=== PATIENT | female | born 1965 | race African-American/Black ===

== ENCOUNTER 2017-02-25 05:46 | Inpatient (IN) ==
[2017-02-25] MEDS ORDERED: MIDAZOLAM 2 MG/2 ML VIAL IV ONE (07:09)
[2017-02-25] MEDS ORDERED: fentaNYL 100 MCG/2 ML VIAL IV ONE (07:09)
[2017-02-25] MEDS ORDERED: DIAZEPAM 5 MG TABLET PO ONE (07:09)
[2017-02-25 07:28] LABS: Basophils % 0.9 % (0.0-0.8); Eosinophils # 0.3 10*3/uL (0.0-0.87); Hematocrit 28.4 VOL% (35.7-47.0); Hemoglobin 9.5 GM/DL (12.0-16.0); Immature Granulocytes % 1.4 %; Immature Granulocytes Absolute 0.06 #; Lymphocytes # 0.7 10*3/uL (1.4-4.0); Lymphocytes % 15.6 % (21.3-54.2); Mean Corpuscular HGB Conc 33.5 GM/DL (32-36); Mean Corpuscular Hemoglobin 29 PG (27-34); Mean Corpuscular Volume 86.9 FL (87-102); Monocytes # 0.3 10*3/uL (0.11-0.8); Monocytes % 7.9 % (1.7-12.7); Neutrophils # 2.9 10*3/uL (1.4-7.4); Neutrophils % 68.2 % (38.7-73.9); Platelet Count 206 T/CUMM (130-400); Red Blood Count 3.27 MC/CUMM (3.8-5.5); Red Cell Distribution Width 15.8 % (9.3-17.3); White Blood Count 4.3 T/CUMM (4-12)
[2017-02-25] MEDS ORDERED: SODIUM CHLORIDE 0.9% 250 ML IV SCH (07:30)
[2017-02-25 07:55] LABS: Calcium 6.2 MG/DL (8.5-10.1); Osmolality,Calculated 290.5 MOS/KG (273-304); PT Patient Result 10.1 SECS; Partial Thromboplastin Time 28.9 SECS (0-40); Potassium 3.5 MMOL/L (3.5-5.1)
[2017-02-25] MEDS ORDERED: DIAZEPAM 5 MG TABLET ONE (08:36)
--- NOTE | 2017-02-25 08:49 | History and Physical Update ---
Sedation H&P Update - History and Physical H&P was reviewed, the patient examined and there: are no changes in the patients condition since last H&P was completed. - Dictation Physical: refer to scanned H&P - Physical Exam Mental Status: alert and oriented Heart: regular rate and rhythm Lung: clear to auscultation Abdomen: within normal limits Vitals: within normal limits - Sedation Plan for Sedation: moderate Patient Consent: Procedure disscussed with patient and patinet has consented., Risks and benefits were discussed with patient,including infection,, bleeding, injury to surrounding structures, seizure, temporary nerve, Patient understands and accepts potential risks/benefits and agrees to, proceed. ASA Class: II Airway Assessment: Class II: Soft palate, uvula, fauces visible
[2017-02-25] MEDS ORDERED: fentaNYL 100 MCG/2 ML VIAL ONE ×2 (09:27→15:24)
[2017-02-25] MEDS ORDERED: MIDAZOLAM 2 MG/2 ML VIAL ONE ×2 (09:28→15:24)
[2017-02-25] MEDS ORDERED: HEPARIN/NACL 0.9% 2 UNITS/ML 2,000 ML IV ONE (09:28)
[2017-02-25] MEDS: SODIUM CHLORIDE 0.45% 1,000 ML IV SCH (11:30)
[2017-02-25] MEDS ORDERED: HEPARIN 10,000 UNIT/10 ML VIAL ONE (12:05)
[2017-02-25] MEDS ORDERED: PHENYLEPHRINE 1 MG/10 ML SYRINGE IV ONE (12:05)
[2017-02-25] MEDS ORDERED: PROPOFOL 200 MG/20 ML VIAL IV ONE (12:05)
[2017-02-25] MEDS ORDERED: ONDANSETRON 4 MG/2 ML VIAL ONE (12:05)
[2017-02-25] MEDS ORDERED: LIDOCAINE 100 MG/5 ML SYRINGE ONE (12:05)
[2017-02-25] MEDS ORDERED: KETOROLAC 30 MG/1 ML VIAL IV ONE (12:13)
--- NOTE | 2017-02-25 12:13 | General Surg History&Physical ---
Assessment and Plan (1) Brachial artery thrombus Status: Acute Assessment and plan: I have discussed the findings of the arteriogram and reviewed the images with Dr. Walton. He is agreed to see the patient in consultation for management of this problem. Current Visit: Yes History of Present Illness Chief complaint: Right hand claudication History of present illness: Ms. Aragon is a 51 year old female who is brought in after arteriogram for right hand claudication symptoms in the arteriogram showed a filling defect in the brachial artery below the antecubital fossa. She has symptoms of hand claudication and is admitted for definitive treatment of this area of filling defect in her brachial artery. She did have a fistula on the side which was a brachiocephalic fistula that was ligated for still symptoms about two years ago. Home Medications Medication Instructions Recorded Confirmed Type Carvedilol [Coreg] 25 mg PO DIRECTED 03/13/15 02/25/17 History Sucroferric Oxyhydroxide [Velphoro 500 mg PO DAILY W/SUPPER 06/25/16 02/25/17 History Chew Tab] Calcium (Carbonate) [Oscal 500] 3,000 mg PO BEDTIME #30 tablet 06/27/16 Rx Levothyroxine Tab [Synthroid Tab] 200 mcg PO DAILY@0700 09/16/16 02/25/17 History Calcium (Carbonate) [Oscal 500] 2,000 mg PO BID W/MEALS 02/24/17 02/25/17 History Gabapentin 100 mg PO BEDTIME PRN 02/25/17 02/25/17 History Allergies Allergy/AdvReac Type Severity Reaction Status Date / Time No Known Allergies Allergy Verified 09/19/15 21:23 Medical,Surgical,& Family Hx - Medical History Cardio: History of: Hypertension (MEDICATION) No history of: Cardiac Dysrhythmia, CHF, SC, Pacemaker, Valvular Heart Disease Neurology: History of: Peripheral Neuropathy No history of: Brain Aneurysm, Cerebrovascular Accident, Dementia, Migraine, Seizures, Vertigo HEENT: History of: Eye Problem (GLASSES) Endocrine: History of: Thyroid Disorder (ALSO PARATHYROID) Respiratory: History of: Respiratory Problems (HAD PE 2014) Renal: History of: Dialysis (CATHETER FOR PERITONEAL DAILYSIS, CYCLER AT NIGHT) , Renal Failure Gastrointestinal: History of: Diverticulitis/ Diverticulosis Musculoskeletal: History of: Musculoskeletal Problems (OA) Hematology: History of: Anemia No history of: Blood Transfusion Reaction Reproductive: History of: Complication Other: History of: Miscellaneous Medical Problems (BILATERAL PE AROUND 2 YRS AGO ) No history of: Anesthesia Reactions - Surgical History Cardiac Surgeries: Patient Denies: Cardiac Catheterization Thoracic Surgeries: Patient denies;: Organ Transplant Neurologic Surgeries: Patient denies: Brain Aneurysm HEENT Surgeries: Comment Only: Thyroid Surgery (PARATHYROID SURGERY) Abdominal Surgeries: Surgical HX of: Abdominal Surgery, Colonoscopy, EGD (15 YRS AGO) Reproductive Surgeries: Surgical HX of;: Section (X2), Gynecologic Surgery, Hysterectomy Orthopedic Surgeries: Surgical HX of;: Implanted Devices (LEFT SIDE OF ABDOMEN PERITONEAL CATHETER), Total Hip Replacement (LEFT HIP) - Family History Family History: Reports;: Family Diabetes (MOTHER BROTHER), Family Hypertension (MOTHER FATHER BROTHER), Family Stroke (MOTHER) - Social History Smoking Status: Never smoker Frequency of Alcohol Use: None Type of Drug Use: None Exam - Constitutional Vitals: Period Temp Pulse Resp BP Sys/Salomon Pulse Ox Last 24 Hr 98.9 F 60-65 15-20 122-147/84-102 94-100 General appearance: no acute distress, morbidly obese - Head Head exam: Present: normal inspection, normocephalic - Eye Eye exam: Present: EOMI Pupils: Present: MINNIE - ENT ENT exam: Present: normal exam Mouth exam: Present: normal external inspection, normal voice - Neck Neck exam: Present: normal inspection, trachea midline - Respiratory Respiratory exam: Present: clear to auscultation bilaterally. Absent: accessory muscle use, chest wall tenderness - Cardiovascular Cardiovascular exam: Present: RRR. Absent: systolic murmur, tachycardia - GI/Abdominal GI/Abdominal exam: Present: soft. Absent: distended, tenderness - Extremities Exam Extremities exam: Present: other (There is a palpable pulse in the right ulnar artery but not in the right radial artery.) - Back Exam Back exam: Present: normal inspection - Neurological Exam Neurological exam: Present: alert, oriented X3 Speech: Present: normal - Skin Skin exam: Present: normal color, warm - Constitutional Constitutional: Present: as per HPI - EENT Nose, mouth and throat: Present: as per HPI - Cardiovascular Cardiovascular: Present: as per HPI - Respiratory Respiratory: Present: as per HPI - Gastrointestinal Gastrointestinal: Present: as per HPI - Genitourinary Genitourinary: Present: as per HPI - Musculoskeletal Musculoskeletal: Present: as per HPI - Neurological Neurological: Present: as per HPI - Endocrine Endocrine: Present: as per HPI Hematologic/Lymphatic: Present: as per HPI Results - Labs CBC & BMP: 02/25/17 07:16 02/25/17 07:16
--- NOTE | 2017-02-25 12:19 | Vascular Surgery Consult Note ---
History of Present Illness Chief complaint: right hand ischemia History of present illness: Ms. Aragon is a 51 year old female Ms. aragon is a 51-year-old woman with a past history of a right upper arm brachial artery to vein fistula for dialysis access. She has developed hand ischemia in the graft has been ligated but continues with ischemic pain in the right hand. This is not critical ischemia and today an arteriogram has been done which indicates either thrombus or plaque in the brachial artery above its bifurcation probably right at the area of the previous anastomosis. I have reviewed this arteriogram and patient's symptoms with Dr. Irving and we have discussed options and we feel that an exploration with thrombectomy or endarterectomy patching may improve her symptoms significantly. I have subsequently discussed this with Ms. aragon and her family members explaining our findings on the arteriogram and the surgical option that we have offer in the recommending. I have explained that I cannot guarantee resolution of the symptoms but there certainly appears to be good chance that we can improve on the perfusion of the hand and probably the symptoms. He understands risks of infection bleeding and restenosis and agrees and would like to go ahead with the procedure this afternoon. Dr. Irving by both have clinic this afternoon line should be shorter and he has asked that I go ahead with this procedure and I can do so in a timely fashion which I can. Home Medications Medication Instructions Recorded Confirmed Type Carvedilol [Coreg] 25 mg PO DIRECTED 03/13/15 02/25/17 History Sucroferric Oxyhydroxide [Velphoro 500 mg PO DAILY W/SUPPER 06/25/16 02/25/17 History Chew Tab] Calcium (Carbonate) [Oscal 500] 3,000 mg PO BEDTIME #30 tablet 06/27/16 Rx Levothyroxine Tab [Synthroid Tab] 200 mcg PO DAILY@0700 09/16/16 02/25/17 History Calcium (Carbonate) [Oscal 500] 2,000 mg PO BID W/MEALS 02/24/17 02/25/17 History Gabapentin 100 mg PO BEDTIME PRN 02/25/17 02/25/17 History Allergies Allergy/AdvReac Type Severity Reaction Status Date / Time No Known Allergies Allergy Verified 09/19/15 21:23 Medical,Surgical,& Family Hx - Medical History Cardio: History of: Hypertension (MEDICATION) No history of: Cardiac Dysrhythmia, CHF, SD, Pacemaker, Valvular Heart Disease Neurology: History of: Peripheral Neuropathy No history of: Brain Aneurysm, Cerebrovascular Accident, Dementia, Migraine, Seizures, Vertigo HEENT: History of: Eye Problem (GLASSES) Endocrine: History of: Thyroid Disorder (ALSO PARATHYROID) Respiratory: History of: Respiratory Problems (HAD PE 2015) Renal: History of: Dialysis (CATHETER FOR PERITONEAL DAILYSIS, CYCLER AT NIGHT) , Renal Failure Gastrointestinal: History of: Diverticulitis/ Diverticulosis Musculoskeletal: History of: Musculoskeletal Problems (OA) Hematology: History of: Anemia No history of: Blood Transfusion Reaction Reproductive: History of: Complication Other: History of: Miscellaneous Medical Problems (BILATERAL PE AROUND 2 YRS AGO ) No history of: Anesthesia Reactions - Surgical History Cardiac Surgeries: Patient Denies: Cardiac Catheterization Thoracic Surgeries: Patient denies;: Organ Transplant Neurologic Surgeries: Patient denies: Brain Aneurysm HEENT Surgeries: Comment Only: Thyroid Surgery (PARATHYROID SURGERY) Abdominal Surgeries: Surgical HX of: Abdominal Surgery, Colonoscopy, EGD (15 YRS AGO) Reproductive Surgeries: Surgical HX of;: Section (X2), Gynecologic Surgery, Hysterectomy Orthopedic Surgeries: Surgical HX of;: Implanted Devices (LEFT SIDE OF ABDOMEN PERITONEAL CATHETER), Total Hip Replacement (LEFT HIP) - Family History Family History: Reports;: Family Diabetes (MOTHER BROTHER), Family Hypertension (MOTHER FATHER BROTHER), Family Stroke (MOTHER) - Social History Smoking Status: Never smoker Frequency of Alcohol Use: None Type of Drug Use: None Exam - Constitutional Vitals: Period Temp Pulse Resp BP Sys/Salomon Pulse Ox Last 24 Hr 98.9 F 60-65 15-20 122-147/84-102 94-100 Results - Labs CBC & BMP: 02/25/17 07:16 02/25/17 07:16
[2017-02-25] MEDS ORDERED: VANCOMYCIN 500 MG VIAL ONE (12:40)
[2017-02-25] MEDS ORDERED: HEPARIN 5,000 UNIT/1 ML VIAL ONE (12:40)
--- NOTE | 2017-02-25 12:44 | EKG Report ---
Stationary ECG Study [facility] Test Date: 02/25/2017 12:45:38 PM Pat Name: NANCY ROSENTHAL Department: Room: 335 Gender: F Land Surveyor: BEBE : 1965 Requested by: Desmond Johnson Order Number: [id number] Reading MD: LOREN ARTHUR Intervals [place] Rate: 61 P: 64 CO: 217 QRS: 23 QRSD: 83 T: 4 QT: 378 QTc: 382 Interpretive Statements SINUS RHYTHM WITH PROLONGED CO INTERVAL LOW QRS VOLTAGE IN PRECORDIAL LEADS NONSPECIFIC T-WAVE ABNORMALITY Electronically Signed On 02-25-17 14:43:29 CDT by LOREN ARTHUR [email or web address]
[2017-02-25] MEDS: HYDROmorphone 2 MG/1 ML VIAL IV PRN ×2 (12:53→17:06)
--- NOTE | 2017-02-25 13:07 | Post Interventional Procedure ---
Pre-op diagnosis: Right arm pain and weakness. Decreased radial artery pulse on the right. Post-op diagnosis: same Procedure: Right upper extremity arteriogram, aortic arch arteriogram. Ultrasound guidance for vascular access Radiologist: Kika Lang Anesthesia: conscious sedation Medications: see below Total Sedation Time: 30 min Specimens: none sent Estimated blood loss: minimal (less than 3 ml) Complications: none Condition: stable Description/Findings: Informed consent was obtained. A formal timeout was performed. The right groin was prepped and draped in a sterile fashion. 5 cc 1% lidocaine was injected. The right common femoral artery was accessed with micropuncture needle. Using Seldinger technique, a flush catheter was situated in the ascending thoracic aorta. Aortic arch arteriography was performed in the WOLFF position. H1 catheter was then used to selectively catheterize the right brachial artery. Serial filming over the arterial runoff of the right upper extremity was performed from the level of the innominate artery to the hand. The catheter and sheath were subsequently removed. Hemostasis was achieved with manual compression. Patient tolerated the procedure well. Medications: Monitored conscious sedation provided for 30 minutes with physician in room, with Versed 2 mg, fentanyl 50 mcg. Contrast: Visipaque 320, 65 mL. Fluoroscopy: 3.5 minutes. Images captured and archived: 216 Findings: There appears to be normal arch anatomy. There is no hemodynamically significant stenosis at the origin of the right innominate, subclavian, common carotid, or vertebral arteries. There is no hemotympanum significant stenosis or focal abnormality of the axillary artery or its major tributaries. The brachial artery is normal in appearance until it reaches the level of the elbow. There is some slight atherosclerotic irregularity of the distal most brachial artery. There is a globular area of plaque or embolus/thrombus in the distal most brachial artery which causes relatively high-grade narrowing. There is also cylindrical thrombus or embolus in the diminutive right radial artery just distal to its origin. There is slow flow throughout the radial artery which is patent to the level of the wrist. The ulnar artery provides straight line flow to the hand and is the major supplier of the palm arch. The major digital arteries are generally patent. The intraosseous arteries are generally patent. Impression: Large lobular area of thrombus or embolus which causes fairly high-grade narrowing of the distal most right brachial artery. Second area of thrombus or embolus in the proximal aspect of the right radial artery just distal to its origin with resulting slow flow in the radial artery Assessment and Plan - Time spent with patient Time spent with patient: Greater than 30 minutes
--- NOTE | 2017-02-25 13:10 | Interventional Radiology Rpt ---
History: Right arm pain and weakness. Decreased radial artery pulse on the right. Steal syndrome Date: 02/25/2017 Study: Right upper extremity arteriogram, aortic arch arteriogram. Ultrasound guidance for vascular access Comparison exam: No previous similar Informed consent was obtained. A formal timeout was performed. The right groin was prepped and draped in a sterile fashion. 5 cc 1% lidocaine was injected. The right common femoral artery was accessed with micropuncture needle. Using Seldinger technique, a flush catheter was situated in the ascending thoracic aorta. Aortic arch arteriography was performed in the WOLFF position. H1 catheter was then used to selectively catheterize the right brachial artery. Serial filming over the arterial runoff of the right upper extremity was performed from the level of the innominate artery to the hand. The catheter and sheath were subsequently removed. Hemostasis was achieved with manual compression. Patient tolerated the procedure well. Medications: Monitored conscious sedation provided for 30 minutes with physician in room, with Versed 2 mg, fentanyl 50 mcg. Contrast: Visipaque 320, 65 mL. Fluoroscopy: 3.5 minutes. Images captured and archived: 216 Findings: There appears to be normal arch anatomy. There is no hemodynamically significant stenosis at the origin of the right innominate, subclavian, common carotid, or vertebral arteries. There is no hemotympanum significant stenosis or focal abnormality of the axillary artery or its major tributaries. The brachial artery is normal in appearance until it reaches the level of the elbow. There is some slight atherosclerotic irregularity of the distal most brachial artery. There is a globular area of plaque or embolus/thrombus in the distal most brachial artery which causes relatively high-grade narrowing. There is also cylindrical thrombus or embolus in the diminutive right radial artery just distal to its origin. There is slow flow throughout the radial artery which is patent to the level of the wrist. The ulnar artery provides straight line flow to the hand and is the major supplier of the palm arch. The major digital arteries are generally patent. The intraosseous arteries are generally patent. Impression: Large lobular area of thrombus or embolus which causes fairly high-grade narrowing of the distal most right brachial artery. Second area of thrombus or embolus in the proximal aspect of the right radial artery just distal to its origin with resulting slow flow in the radial artery PROCEDURE INTERPRETED AT [facility] DEPARTMENT OF RADIOLOGY Final Report Signed by: Dr. Kika Lang
[2017-02-25] MEDS ORDERED: ROPIVACAINE 0.5% 30 ML VIAL ONE (13:24)
[2017-02-25] MEDS ORDERED: TISSUE ADHESIVE 1 EACH APPLICATOR TOP ONE (15:51)
--- NOTE | 2017-02-25 16:06 | Operative Note ---
Date of procedure: 02/25/17 Procedure: Dr. Walton operative report Linda zapata. 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 Postoperative diagnosis: Same Procedure: Exploration of the right brachial artery with excision of old AV fistula anastomosis and patch graft angioplasty with bovine pericardium Indications: Space a 51-year-old woman is having right hand ischemic symptoms has an old AV fistula that has been previously ligated she is currently on peritoneal dialysis she continues to have hand ischemia had arteriogram today that shows an area of stenosis in the brachial artery just at the old anastomosis I have offered exploration and thrombectomy endarterectomy or patch grafting to improve flow into the hand she understands the alternatives risks and complications and agrees with the plan Description of the procedure: Patient receives interscalene block and then gets general LMA anesthesia her right arm hand or prepped with ChloraPrep and draped in standard fashion she had an old horizontal incision in the antecubital fossa and there was a palpable nodule underneath that was not pulsatile in and of itself but was firm I opened the old incision dissected around this mass which was actually the go of the previous AV fistula that was thrombosed I worked around it and then dissected proximally along the brachial artery and controlled it with a small vessel loop I then dissected distally to the mass and control the brachial artery as well on noted to significantly decreased pulse in the distal brachial artery the patient received 5000 units of intravenous heparin open the old go of the graft and encountered the old fibrous thrombus remove this and dissected down through the anastomosis this old who the graft was actually aneurysmal dissected and removed it initially did not get good backbleeding from the artery ran a #3 Genesis distally into the ulnar did not want to go into the radial artery I got backbleeding flushed with heparinized saline and ran it proximally and got back good forward bleeding but still had plaquing and stenosis in this area therefore completely trimmed away the old vein graft anastomosis and dissected proximally and distally with Marquez scissors until I had the artery open and noted what appeared to be an old thrombus going into the radial artery which are now separately controlled with Vesseloops as well as the ulnar . I was able to pass the Genesis catheter distally into the ulnar without difficulty with good backbleeding and good passive 3-1/2 coronary dilator the radial artery appears to be completely occluded at this level and in reviewing the arteriogram it appears that this is the case that the radial artery is not in fact viable at the level of the brachial. I ran a 3-1/2 coronary dilator proximally and got good inflow I chose a bovine pericardial patch and anastomosed it over the arteriotomy with a running 6-0 Prolene suture using loupe magnification which was used the entire case.. Flow was reestablished not had very good flow into the ulnar and as stated the radial artery was in fact occluded. Hemostasis was fair I did reverse heparin partially with 25 mg protamine I recheck flows with Doppler it was good the incision was irrigated I placed Surgicel over the arteriotomy closed with 2 layers one of 3-0 Monocryl in the subcu 4-0 Monocryl subcuticular glue total blood loss is estimated at 150 cc sponge needle and his counts correct and the patient taken to recovery in stable condition Surgeon / Physician: Mario Walton Results - Labs CBC & BMP: 02/25/17 07:16 02/25/17 07:16 Discharge Plan - Discharge Medications No Action Carvedilol [Coreg] 25 mg PO DAILY Sucroferric Oxyhydroxide [Velphoro Chew Tab] 500 mg PO DAILY W/SUPPER Calcium (Carbonate) [Oscal 500] 3,000 mg PO BEDTIME #30 tablet Calcium (Carbonate) [Oscal 500] 2,000 mg PO BID W/MEALS Levothyroxine Tab [Synthroid Tab] 200 mcg PO DAILY@0700 Gabapentin 100 mg PO BEDTIME PRN PRN Reason: nerves - Follow Up or Referral - Forms/Instructions
[2017-02-25] MEDS ORDERED: ONDANSETRON 4 MG/2 ML VIAL IV PRN (16:16)
[2017-02-25] MEDS ORDERED: GLUCAGON 1 MG VIAL IM PRN (16:16)
[2017-02-25] MEDS ORDERED: DEXTROSE 50% 25 GM/50 ML SYRINGE IV PRN (16:16)
[2017-02-25] MEDS ORDERED: GABAPENTIN 100 MG CAPSULE PO PRN (16:20)
--- NOTE | 2017-02-25 16:30 | Anesthesia Post-Op ---
Anesthesia Post OP - Post Ansesthetic Evaluation Patient seen in post op: Yes Resp: within normal limits CV: within normal limits Mental: within normal limits Temp: within normal limits [id number]: within normal limits Nausea and Vomiting: within normal limits Pain: within normal limits
[2017-02-25] MEDS ORDERED: VELPHORO 500 MG PO SCH (17:00)
[2017-02-25] MEDS: CALCIUM (CARBONATE) 500 MG TABLET PO SCH ×2 (19:20→20:16)
[2017-02-26] MEDS: LEVOTHYROXINE 200 MCG TABLET PO SCH (06:04)
[2017-02-26] MEDS: SODIUM CHLORIDE 0.45% 1,000 ML IV SCH (07:30)
[2017-02-26] MEDS: HYDROmorphone 2 MG/1 ML VIAL IV PRN (07:30)
[2017-02-26 07:37] LABS: Basophils % 0.4 % (0.0-0.8); Eosinophils # 0.1 10*3/uL (0.0-0.87); Eosinophils % 1.2 % (0.00-10.9); Hematocrit 34.4 VOL% (35.7-47.0); Immature Granulocytes % 0.7 %; Immature Granulocytes Absolute 0.07 #; Lymphocytes # 1.2 10*3/uL (1.4-4.0); Lymphocytes % 12.4 % (21.3-54.2); Mean Corpuscular Hemoglobin 29 PG (27-34); Mean Platelet Volume 9.6 FL (9.6-12.0); Monocytes # 0.9 10*3/uL (0.11-0.8); Monocytes % 9.5 % (1.7-12.7); Neutrophils # 7.1 10*3/uL (1.4-7.4); Neutrophils % 75.8 % (38.7-73.9); Red Cell Distribution Width 14.4 % (9.3-17.3)
[2017-02-26] MEDS: CALCIUM (CARBONATE) 500 MG TABLET PO SCH ×3 (07:39→20:29)
[2017-02-26 07:42] LABS: White Blood Count 9.4 T/CUMM (4-12)
[2017-02-26 07:43] LABS: Hemoglobin 11.7 GM/DL (12.0-16.0); Platelet Count 322 T/CUMM (130-400)
[2017-02-26] MEDS: CARVEDILOL 25 MG TABLET PO SCH (08:00)
[2017-02-26 08:08] LABS: Calcium 7.9 MG/DL (8.5-10.1); Osmolality,Calculated 264.5 MOS/KG (273-304); Potassium 3.9 MMOL/L (3.5-5.1)
[2017-02-26] MEDS ORDERED: KETOROLAC 15 MG/1 ML VIAL IV PRN (08:17)
--- NOTE | 2017-02-26 08:17 | General Surgery Progress Note ---
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 Will increase pain medication today Current Visit: Yes Subjective Patient reports: Present: no new complaints, feels better, tolerating a regular diet, afebrile Narrative: The patient is having quite a bit of pain in her right arm incision but her hand feels okay. Exam - Constitutional Vitals: Period Temp Pulse Resp BP Sys/Salomon Pulse Ox Last 24 Hr 97.2 F-98.8 F 60-82 12-20 82-162/61-102 93-100 General appearance: no acute distress, morbidly obese - Head Head exam: Present: normal inspection, normocephalic - Eye Eye exam: Present: EOMI Pupils: Present: MINNIE - ENT ENT exam: Present: normal exam Mouth exam: Present: normal external inspection, normal voice - Neck Neck exam: Present: normal inspection, trachea midline - Respiratory Respiratory exam: Present: clear to auscultation bilaterally. Absent: accessory muscle use, chest wall tenderness - Cardiovascular Cardiovascular exam: Present: RRR. Absent: systolic murmur, tachycardia - GI/Abdominal GI/Abdominal exam: Present: soft. Absent: tenderness, rebound - Extremities Exam Extremities exam: Present: other (There is good capillary refill on the right hand with a palpable ulnar pulse. The right arm incision is clean with no infection or bleeding) - Back Exam Back exam: Present: normal inspection - Neurological Exam Neurological exam: Present: alert, oriented X3 Speech: Present: normal - Skin Skin exam: Present: normal color, warm Results - Labs CBC & BMP: 02/26/17 06:17 02/26/17 06:17 Quality Measures - VTE Contraindication to Pharmacological VTE Prophylaxis: High Risk of Bleeding
--- NOTE | 2017-02-26 08:59 | Nephrology Consult Note ---
History of Present Illness Chief complaint: ESRD in a patient admitted for hand ischemia History of present illness: Ms. Aragon is a 51 year old female with end-stage renal disease who performs peritoneal dialysis on a cycler at home. 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 The patient underwent thrombectomy successfully. She continues to have some arm pain post surgery today but feels like this is from her surgery as opposed to her previous hand pain. The patient performs peritoneal dialysis at home with a cycler she uses 2.5% dextrose exchanges at home. ROS: Head -positive headaches ENT - denies sore throat Lymphatics - denies lymphadenopathy Hematology - denies bleeding problems Heart - denies chest pain Lungs - denies shortness of breath Abdomen - denies abdominal pain Musculoskeletal - denies arthritis Skin - denies rash Neurology - denies stroke General - denies fever PE: General: in no acute distress Eyes: Pupils are round and reactive, conjunctivae are clear ENT: Nose is clear, O/P is benign Neck: Supple, no thyromegaly Lymphatics: No cervical, supraclavicular or axillary adenopathy Heart: Regular rate and rhythm, no edema Lungs: Clear to auscultation anteriorly, chest expansion symmetric Abdomen: Soft, normoactive bowel sounds, no hepatomegaly Musculoskeletal: No joint erythema or effusions or joint asymmetry Skin: Normal turgor, normal hydration, no rash Neuro/Psych: Alert and cooperative with fair insight Home Medications Medication Instructions Recorded Confirmed Type Carvedilol [Coreg] 25 mg PO DAILY 03/13/15 02/25/17 History Sucroferric Oxyhydroxide [Velphoro 500 mg PO DAILY W/SUPPER 06/25/16 02/25/17 History Chew Tab] Calcium (Carbonate) [Oscal 500] 3,000 mg PO BEDTIME #30 tablet 06/27/16 Rx Levothyroxine Tab [Synthroid Tab] 200 mcg PO DAILY@0700 09/16/16 02/25/17 History Calcium (Carbonate) [Oscal 500] 2,000 mg PO BID W/MEALS 02/24/17 02/25/17 History Gabapentin 100 mg PO BEDTIME PRN 02/25/17 02/25/17 History Allergies Allergy/AdvReac Type Severity Reaction Status Date / Time No Known Allergies Allergy Verified 09/19/15 21:23 Medical,Surgical,& Family Hx - Medical History Cardio: History of: Hypertension (MEDICATION) No history of: Cardiac Dysrhythmia, CHF, MO, Pacemaker, Valvular Heart Disease Neurology: History of: Peripheral Neuropathy No history of: Brain Aneurysm, Cerebrovascular Accident, Dementia, Migraine, Seizures, Vertigo HEENT: History of: Eye Problem (GLASSES) Endocrine: History of: Thyroid Disorder (ALSO PARATHYROID) Respiratory: History of: Respiratory Problems (HAD PE 2015) Renal: History of: Dialysis (CATHETER FOR PERITONEAL DAILYSIS, CYCLER AT NIGHT) , Renal Failure Gastrointestinal: History of: Diverticulitis/ Diverticulosis Musculoskeletal: History of: Musculoskeletal Problems (OA) Hematology: History of: Anemia No history of: Blood Transfusion Reaction Reproductive: History of: Complication Other: History of: Miscellaneous Medical Problems (BILATERAL PE AROUND 2 YRS AGO ) No history of: Anesthesia Reactions - Surgical History Cardiac Surgeries: Patient Denies: Cardiac Catheterization Thoracic Surgeries: Patient denies;: Organ Transplant Neurologic Surgeries: Patient denies: Brain Aneurysm HEENT Surgeries: Surgical HX of: Thyroid Surgery (PARATHYROID SURGERY) Abdominal Surgeries: Surgical HX of: Abdominal Surgery, Colonoscopy, EGD (15 YRS AGO) Reproductive Surgeries: Surgical HX of;: Section (X2), Gynecologic Surgery, Hysterectomy Orthopedic Surgeries: Surgical HX of;: Implanted Devices (LEFT SIDE OF ABDOMEN PERITONEAL CATHETER), Total Hip Replacement (LEFT HIP) - Family History Family History: Reports;: Family Diabetes (MOTHER BROTHER), Family Hypertension (MOTHER FATHER BROTHER), Family Stroke (MOTHER) - Social History Smoking Status: Never smoker Frequency of Alcohol Use: None Type of Drug Use: None Exam - Vital Signs Vital signs: Period Temp Pulse Resp BP Sys/Salomon Pulse Ox Last 24 Hr 97.2 F-98.8 F 60-82 12-20 82-162/61-102 93-100 Results - Labs CBC & BMP: 02/26/17 06:17 02/26/17 06:17 Assessment and Plan (1) Brachial artery thrombus Status: Acute Assessment and plan: Patient is status post thrombectomy Current Visit: Yes (2) Anemia Status: Acute Assessment and plan: Patient's hematocrit is 34% Current Visit: No (3) ESRD on peritoneal dialysis Status: Acute Assessment and plan: We will continue peritoneal dialysis will dialyze with 2.5% dextrose solution Current Visit: No (4) Hypertension Status: Acute Assessment and plan: Continue her present antihypertensives Current Visit: No (5) Obesity Status: Acute Current Visit: No (6) Secondary hyperparathyroidism Status: Acute Assessment and plan: Continue her phosphate binder Current Visit: No
[2017-02-26] MEDS ORDERED: diphenhydrAMINE CAP 25 MG CAPSULE PO ONE (10:08)
--- NOTE | 2017-02-26 13:04 | XRay Report ---
History: Shortness of breath Date: 02/26/2017 Study: Chest x-ray AP portable Comparison exam: June 19, 2016 There is mild cardiomegaly. There is no mediastinal mass. The pulmonary vasculature is upper normal. There is no gross pleural effusion. The lungs are clear without luis carlos pneumonia. Shallow breath. Osseous structures are unchanged. Impression: Shallow breath. Cardiomegaly without overt CHF PROCEDURE INTERPRETED AT [facility] DEPARTMENT OF RADIOLOGY Final Report Signed by: Dr. Kika Lang
[2017-02-26] MEDS ORDERED: PROMETHAZINE 25 MG/1 ML VIAL IM PRN (20:36)
[2017-02-27] MEDS: LEVOTHYROXINE 200 MCG TABLET PO SCH (06:10)
[2017-02-27 07:02] VITALS: BP 163/92
[2017-02-27] MEDS: HYDROmorphone 2 MG/1 ML VIAL IV PRN (07:24)
[2017-02-27] MEDS: CALCIUM (CARBONATE) 500 MG TABLET PO SCH (08:43)
[2017-02-27] MEDS: CARVEDILOL 25 MG TABLET PO SCH (08:43)
--- NOTE | 2017-02-27 10:10 | Discharge Summary ---
Hospital Course - Hospital Course Hospital Course: The patient was admitted for thrombus in her brachial artery and taken to the operating room by Dr. Walton for brachial artery cutdown with thrombectomy and embolectomy. She did well postoperatively and was discharged home with a good pulse in her ulnar artery and pain medications for discharge. Diagnosis - Discharge Diagnosis (1) Brachial artery thrombus Status: Acute Discharge Plan - Discharge Data Disposition: Disch To Home/Self Care Condition at Discharge: Stable Discharge Diet: advance to your usual diet Activity: resume usual activities as tolerated Hygiene: may shower Weight Bearing at Discharge: weight bear as tolerated Driving: other (Do not drive or operate heavy machinery for at least 24 hours and after you are off of narcotic pain medications.) Contact your physician if you experience:: fever over 101, Difficulty voiding, Redness or swelling, Nausea/Vomiting, Shortness of breath, Bleeding, pain uncontrolled by pain medications Wound / Dressing Care Instructions: It is okay to shower. Do not scrub the incision aggressively or submerge it under water. - Discharge Medications New Oxycodone HCl/Acetaminophen [Percocet 10-325 mg Tablet] 1 each PO Q4H PRN # 20 tablet PRN Reason: Pain Continue Carvedilol [Coreg] 25 mg PO DAILY Sucroferric Oxyhydroxide [Velphoro Chew Tab] 500 mg PO DAILY W/SUPPER Calcium (Carbonate) [Oscal 500] 3,000 mg PO BEDTIME #30 tablet Calcium (Carbonate) [Oscal 500] 2,000 mg PO BID W/MEALS Levothyroxine Tab [Synthroid Tab] 200 mcg PO DAILY@0700 Gabapentin 100 mg PO BEDTIME PRN PRN Reason: nerves - Follow Up or Referral Follow Up: Mario Walton MD [Physician] - 2 Weeks - Forms/Instructions Exam - Constitutional Vitals: Period Temp Pulse Resp BP Sys/Salomon Pulse Ox Last 24 Hr 97.0 F-99.3 F 67-76 18-20 102-163/58-92 91-100 General appearance: no acute distress, morbidly obese - Head Head exam: Present: normal inspection, normocephalic - Eye Eye exam: Present: EOMI - ENT ENT exam: Present: normal exam - Neck Neck exam: Present: normal inspection - Respiratory Respiratory exam: Present: clear to auscultation bilaterally. Absent: accessory muscle use, chest wall tenderness - Cardiovascular Cardiovascular exam: Present: regular rate and rhythm. Absent: systolic murmur - GI/Abdominal GI/Abdominal exam: Present: soft. Absent: distended - Extremities Exam Extremities exam: Present: other (There is a palpable pulse in the ulnar artery. There is brisk capillary refill. The upper arm incision on the right arm is clean with no hematoma or drainage and no erythema. It is appropriately tender) - Back Exam Back exam: Present: normal inspection - Neurological Exam Neurological exam: Present: alert, oriented X3 - Psychiatric Psychiatric exam: Present: normal affect, normal mood - Skin Skin exam: Present: normal color, warm DS: Provider Date of admission: 02/26/17 14:44 Primary care physician: Elías Sainz Attending physician on admission: Kika Lang MD Consults: 02/25/17 16:16 Consult to Physician [CONS] Routine Comment: Consulting Provider: Sy Santos Consulting Provider Notified: Yes When should Consulting Provider be notified: Now Consult to Specialist Group: Nephrology Person Notified: Dr Santos Date Notified: 02/25/17 Time Notified: 17:21 Discharging clinician: Brigido Irving MD Expected date of discharge: 02/27/17
--- NOTE | 2017-02-27 10:52 | Nephrology Progress Note ---
Nephrology - PN: Subj Interval history: Patient is feeling better. She has no complaints Physical exam general she is in no acute distress Assessment/plan 1. End-stage renal disease-we will continue her PD regimen unchanged 2. Hand ischemia-patient status post thrombectomy in the right arm 3. Hypertension this control 4. Secondary hyperparathyroidism continue binders. Okay for discharge from my standpoint Exam (PN)-Nephrology - Vital Signs Vital signs: Period Temp Pulse Resp BP Sys/Salomon Pulse Ox Last 24 Hr 97.0 F-99.3 F 67-76 18-20 102-163/58-92 91-100 - Lab 02/26/17 06:17 02/26/17 06:17 Most recent lab results Calcium 7.9 MG/DL (8.5-10.1) L D 02/26/17 06:17 Assessment and Plan (1) Brachial artery thrombus Status: Acute Assessment and plan: Patient is status post thrombectomy Current Visit: Yes (2) Anemia Status: Acute Assessment and plan: Patient's hematocrit is 34% Current Visit: No (3) ESRD on peritoneal dialysis Status: Acute Assessment and plan: We will continue peritoneal dialysis will dialyze with 2.5% dextrose solution Current Visit: No (4) Hypertension Status: Acute Assessment and plan: Continue her present antihypertensives Current Visit: No (5) Obesity Status: Acute Current Visit: No (6) Secondary hyperparathyroidism Status: Acute Assessment and plan: Continue her phosphate binder Current Visit: No Specialty Discharge - Follow Up or Referrals Follow up with: Mario Walton MD [Physician] - 03/16/17 2:30 pm
== END 2017-02-27 11:50 | disposition home or self-care (01) | DRG 252 ==
LOC: N.SDSINP 05:46 → N.RAD 05:46 → N.3E 11:14
PROVIDERS: ADMIT Radiology Diagnostic Radiology; ATTEND Radiology Diagnostic Radiology
PROC: EXPLORE (2017-02-25 14:09)

== ENCOUNTER 2017-05-25 01:11 | Inpatient (IN) ==
[2017-05-25] MEDS ORDERED: PANTOPRAZOLE 40 MG VIAL IV STA (01:59)
[2017-05-25] MEDS ORDERED: PANTOPRAZOLE 40 MG VIAL IV ONE (02:29)
[2017-05-25 02:33] LABS: Basophils % 0.2 % (0.0-0.8); Hematocrit 27.5 VOL% (35.7-47.0); Hemoglobin 9.5 GM/DL (12.0-16.0); Immature Granulocytes % 2.5 %; Immature Granulocytes Absolute 0.29 #; Lymphocytes # 0.6 10*3/uL (1.4-4.0); Lymphocytes % 5.5 % (21.3-54.2); Mean Corpuscular HGB Conc 34.5 GM/DL (32-36); Mean Corpuscular Hemoglobin 29 PG (27-34); Mean Corpuscular Volume 83.8 FL (87-102); Mean Platelet Volume 11.7 FL (9.6-12.0); Monocytes # 0.7 10*3/uL (0.11-0.8); Monocytes % 5.9 % (1.7-12.7); Neutrophils % 85.9 % (38.7-73.9); Platelet Count 237 T/CUMM (130-400); Red Blood Count 3.28 MC/CUMM (3.8-5.5); Red Cell Distribution Width 16.5 % (9.3-17.3); White Blood Count 11.6 T/CUMM (4-12)
[2017-05-25 02:58] LABS: Alanine Aminotransferase 29 U/L (13-56); Albumin 3.5 G/DL (3.4-5.0); Alkaline Phosphatase 68 U/L (45-117); Aspartate Amino Transferase 16 U/L (0-37); Bilirubin,Total < 0.39 MG/DL (0.2-1.0); Blood Urea Nitrogen 79 MG/DL (7-18); Calcium 7.8 MG/DL (8.5-10.1); Glucose 185 MG/DL (74-106); Osmolality,Calculated 301.8 MOS/KG (273-304); Potassium 3.5 MMOL/L (3.5-5.1); Sodium 137 MMOL/L (136-145); Troponin I Only < 0.015 NG/ML (0.00-0.045)
[2017-05-25] MEDS ORDERED: MORPHINE 2 MG/1 ML SYRINGE IV STA (03:30)
[2017-05-25] MEDS ORDERED: ONDANSETRON 4 MG/2 ML VIAL IV STA (03:30)
[2017-05-25] MEDS ORDERED: ONDANSETRON 4 MG/2 ML VIAL ONE (03:36)
[2017-05-25] MEDS ORDERED: MORPHINE 2 MG/1 ML SYRINGE ONE (03:37)
[2017-05-25] MEDS ORDERED: ONDANSETRON 4 MG/2 ML VIAL IV PRN (03:59)
[2017-05-25] MEDS ORDERED: GABAPENTIN 100 MG CAPSULE PO PRN (04:04)
[2017-05-25] MEDS: MORPHINE 2 MG/1 ML SYRINGE IV PRN ×2 (07:18→11:51)
[2017-05-25 08:06] LABS: Basophils % 0.1 % (0.0-0.8); Eosinophils % 0.1 % (0.00-10.9); Hematocrit 27.3 VOL% (35.7-47.0); Hemoglobin 9.5 GM/DL (12.0-16.0); Lymphocytes # 0.7 10*3/uL (1.4-4.0); Lymphocytes % 6.9 % (21.3-54.2); Mean Corpuscular HGB Conc 34.8 GM/DL (32-36); Mean Corpuscular Hemoglobin 29 PG (27-34); Mean Platelet Volume 11.6 FL (9.6-12.0); Monocytes # 0.5 10*3/uL (0.11-0.8); Monocytes % 4.6 % (1.7-12.7); Neutrophils # 8.6 10*3/uL (1.4-7.4); Neutrophils % 86.3 % (38.7-73.9); Platelet Count 232 T/CUMM (130-400); Red Blood Count 3.25 MC/CUMM (3.8-5.5); Red Cell Distribution Width 16.5 % (9.3-17.3)
[2017-05-25 08:47] LABS: Alanine Aminotransferase 30 U/L (13-56); Albumin 3.2 G/DL (3.4-5.0); Alkaline Phosphatase 62 U/L (45-117); Aspartate Amino Transferase 15 U/L (0-37); Bilirubin,Total < 0.39 MG/DL (0.2-1.0); Blood Urea Nitrogen 77 MG/DL (7-18); Calcium 7.5 MG/DL (8.5-10.1); Cholesterol 315 MG/DL (50-200); Glucose 147 MG/DL (74-106); HDL Cholesterol 53 MG/DL (40-60); Osmolality,Calculated 298.8 MOS/KG (273-304); Potassium 3.6 MMOL/L (3.5-5.1); Risk Ratio 5.94; Sodium 137 MMOL/L (136-145); Total Protein 6.8 G/DL (6.4-8.3); Triglycerides 189 MG/DL (2-150); VLDL CHOLESTEROL 37.8 MG/DL
[2017-05-25] MEDS: PANTOPRAZOLE 40 MG TABLET PO SCH (09:47)
[2017-05-25] MEDS: CARVEDILOL 25 MG TABLET PO SCH (09:47)
[2017-05-25] MEDS: ENOXAPARIN 30 MG/0.3 ML SYRINGE SUBCUT SCH (09:51)
[2017-05-25] MEDS ORDERED: DEXTROSE 50% 25 GM/50 ML VIAL IV PRN (10:18)
[2017-05-25] MEDS ORDERED: GLUCAGON 1 MG VIAL IM PRN (10:18)
[2017-05-25 12:39] LABS: Troponin I Only < 0.015 NG/ML (0.00-0.045)
[2017-05-25] MEDS: INSULIN LISPRO 100 UNIT/ML SUBCUT SCH ×3 (14:19→23:35)
[2017-05-25] MEDS: HYDROmorphone 2 MG/1 ML VIAL IV PRN (23:34)
[2017-05-26] MEDS: LEVOTHYROXINE 200 MCG TABLET PO SCH (06:11)
[2017-05-26] MEDS: INSULIN LISPRO 100 UNIT/ML SUBCUT SCH ×3 (06:11→18:34)
[2017-05-26 06:44] LABS: Basophils % 0.3 % (0.0-0.8); Eosinophils # 0.1 10*3/uL (0.0-0.87); Eosinophils % 1.2 % (0.00-10.9); Hematocrit 26.7 VOL% (35.7-47.0); Immature Granulocytes % 2.4 %; Immature Granulocytes Absolute 0.16 #; Lymphocytes # 1.1 10*3/uL (1.4-4.0); Lymphocytes % 16.3 % (21.3-54.2); Mean Corpuscular HGB Conc 33.7 GM/DL (32-36); Mean Corpuscular Hemoglobin 29 PG (27-34); Mean Corpuscular Volume 85.6 FL (87-102); Mean Platelet Volume 11.7 FL (9.6-12.0); Monocytes # 0.7 10*3/uL (0.11-0.8); Monocytes % 10.4 % (1.7-12.7); Neutrophils # 4.5 10*3/uL (1.4-7.4); Neutrophils % 69.4 % (38.7-73.9); Platelet Count 229 T/CUMM (130-400); Red Blood Count 3.12 MC/CUMM (3.8-5.5); Red Cell Distribution Width 16.7 % (9.3-17.3); White Blood Count 6.6 T/CUMM (4-12)
[2017-05-26] MEDS: HYDROmorphone 2 MG/1 ML VIAL IV PRN ×4 (06:55→19:53)
[2017-05-26 07:16] LABS: Calcium 7.4 MG/DL (8.5-10.1); Osmolality,Calculated 297.7 MOS/KG (273-304); Potassium 3.8 MMOL/L (3.5-5.1)
[2017-05-26] MEDS: CARVEDILOL 25 MG TABLET PO SCH (08:43)
[2017-05-26] MEDS: LOSARTAN 50 MG TABLET PO SCH (08:43)
[2017-05-26] MEDS: ENOXAPARIN 30 MG/0.3 ML SYRINGE SUBCUT SCH (08:43)
[2017-05-26] MEDS: PANTOPRAZOLE 40 MG TABLET PO SCH (08:43)
[2017-05-26] MEDS ORDERED: MAGNESIUM CITRATE 300 ML BOTTLE PO ONE (08:58)
[2017-05-27] MEDS: HYDROmorphone 2 MG/1 ML VIAL IV PRN ×3 (00:48→13:55)
[2017-05-27] MEDS: INSULIN LISPRO 100 UNIT/ML SUBCUT SCH ×4 (00:58→19:29)
[2017-05-27] MEDS: ENOXAPARIN 30 MG/0.3 ML SYRINGE SUBCUT SCH (09:09)
[2017-05-27] MEDS: CARVEDILOL 25 MG TABLET PO SCH (13:17)
[2017-05-27] MEDS: LEVOTHYROXINE 200 MCG TABLET PO SCH (13:17)
[2017-05-27] MEDS: PANTOPRAZOLE 40 MG TABLET PO SCH (13:17)
[2017-05-27] MEDS: LOSARTAN 50 MG TABLET PO SCH (13:17)
[2017-05-27 14:27] LABS: Basophils # 0.1 10*3/uL (0.0-0.2); Basophils % 0.6 % (0.0-0.8); Eosinophils # 0.3 10*3/uL (0.0-0.87); Eosinophils % 3.1 % (0.00-10.9); Hematocrit 27.5 VOL% (35.7-47.0); Immature Granulocytes % 1.8 %; Immature Granulocytes Absolute 0.15 #; Lymphocytes # 0.9 10*3/uL (1.4-4.0); Lymphocytes % 10.3 % (21.3-54.2); Mean Corpuscular HGB Conc 32.7 GM/DL (32-36); Mean Corpuscular Hemoglobin 29 PG (27-34); Mean Corpuscular Volume 88.4 FL (87-102); Mean Platelet Volume 11.9 FL (9.6-12.0); Monocytes # 0.5 10*3/uL (0.11-0.8); Neutrophils # 6.6 10*3/uL (1.4-7.4); Neutrophils % 78.2 % (38.7-73.9); Platelet Count 230 T/CUMM (130-400); Red Blood Count 3.11 MC/CUMM (3.8-5.5); Red Cell Distribution Width 16.9 % (9.3-17.3); White Blood Count 8.5 T/CUMM (4-12)
[2017-05-27 15:00] LABS: Alanine Aminotransferase 23 U/L (13-56); Albumin 3.1 G/DL (3.4-5.0); Alkaline Phosphatase 64 U/L (45-117); Aspartate Amino Transferase 14 U/L (0-37); Bilirubin,Total < 0.39 MG/DL (0.2-1.0); Blood Urea Nitrogen 70 MG/DL (7-18); Calcium 6.9 MG/DL (8.5-10.1); Glucose 142 MG/DL (74-106); Osmolality,Calculated 295.8 MOS/KG (273-304); Potassium 3.6 MMOL/L (3.5-5.1); Sodium 137 MMOL/L (136-145); Total Protein 6.3 G/DL (6.4-8.3)
[2017-05-27] MEDS ORDERED: LACTULOSE 20 GM/30 ML UDCUP PO ONE ×2 (15:56→22:00)
[2017-05-27] MEDS ORDERED: LACTULOSE 20 GM/30 ML UDCUP PO PRN (15:58)
[2017-05-27] MEDS: ALUM/MAG/SIMETH/LIDO VISC 1:1 30 ML BOTTLE PO SCH (21:45)
[2017-05-28] MEDS: INSULIN LISPRO 100 UNIT/ML SUBCUT SCH ×4 (01:46→17:50)
[2017-05-28] MEDS: HYDROmorphone 2 MG/1 ML VIAL IV PRN ×2 (02:11→07:20)
[2017-05-28] MEDS: LEVOTHYROXINE 200 MCG TABLET PO SCH (07:11)
[2017-05-28 08:09] LABS: Albumin 3.1 G/DL (3.4-5.0); Bilirubin,Total 0.8 MG/DL (0.2-1.0); Osmolality,Calculated 294.8 MOS/KG (273-304); Total Protein 6.5 G/DL (6.4-8.3)
[2017-05-28] MEDS: PANTOPRAZOLE 40 MG TABLET PO SCH (08:42)
[2017-05-28] MEDS: CARVEDILOL 25 MG TABLET PO SCH (08:42)
[2017-05-28] MEDS: LOSARTAN 50 MG TABLET PO SCH (08:42)
[2017-05-28] MEDS: ALUM/MAG/SIMETH/LIDO VISC 1:1 30 ML BOTTLE PO SCH ×2 (10:44→21:32)
[2017-05-29] MEDS: INSULIN LISPRO 100 UNIT/ML SUBCUT SCH ×4 (00:10→17:18)
[2017-05-29] MEDS: LEVOTHYROXINE 200 MCG TABLET PO SCH (06:57)
[2017-05-29] MEDS: SUCRALFATE 1 GM/10 ML UDCUP PO SCH ×2 (06:58→16:35)
[2017-05-29] MEDS: PANTOPRAZOLE 40 MG TABLET PO SCH (09:14)
[2017-05-29] MEDS: LOSARTAN 50 MG TABLET PO SCH (09:14)
[2017-05-29] MEDS: CARVEDILOL 25 MG TABLET PO SCH (09:14)
[2017-05-29] MEDS ORDERED: MORPHINE 2 MG/1 ML SYRINGE ONE (15:24)
[2017-05-29] MEDS ORDERED: MORPHINE 2 MG/1 ML SYRINGE IV ONE ×2 (15:32→18:25)
[2017-05-30] MEDS: INSULIN LISPRO 100 UNIT/ML SUBCUT SCH ×3 (01:30→11:27)
[2017-05-30 04:33] LABS: Basophils % 0.6 % (0.0-0.8); Eosinophils # 0.3 10*3/uL (0.0-0.87); Eosinophils % 3.7 % (0.00-10.9); Hematocrit 22.3 VOL% (35.7-47.0); Hemoglobin 7.6 GM/DL (12.0-16.0); Immature Granulocytes % 1.8 %; Immature Granulocytes Absolute 0.13 #; Lymphocytes # 0.6 10*3/uL (1.4-4.0); Lymphocytes % 8.6 % (21.3-54.2); Mean Corpuscular HGB Conc 34.1 GM/DL (32-36); Mean Corpuscular Hemoglobin 29 PG (27-34); Mean Corpuscular Volume 85.8 FL (87-102); Mean Platelet Volume 11.9 FL (9.6-12.0); Monocytes # 0.4 10*3/uL (0.11-0.8); Monocytes % 5.4 % (1.7-12.7); Neutrophils # 5.7 10*3/uL (1.4-7.4); Neutrophils % 79.9 % (38.7-73.9); Platelet Count 193 T/CUMM (130-400); Red Cell Distribution Width 15.9 % (9.3-17.3); White Blood Count 7.1 T/CUMM (4-12)
[2017-05-30 05:20] LABS: Calcium 6.9 MG/DL (8.5-10.1); Osmolality,Calculated 290.2 MOS/KG (273-304); Potassium 3.5 MMOL/L (3.5-5.1)
[2017-05-30] MEDS: LEVOTHYROXINE 200 MCG TABLET PO SCH (06:50)
[2017-05-30 08:10] LABS: Hematocrit 23.5 VOL% (35.7-47.0); Hemoglobin 7.9 GM/DL (12.0-16.0)
[2017-05-30] MEDS: PANTOPRAZOLE 40 MG TABLET PO SCH (09:08)
[2017-05-30] MEDS: SUCRALFATE 1 GM/10 ML UDCUP PO SCH (09:08)
[2017-05-30] MEDS: CARVEDILOL 25 MG TABLET PO SCH (09:08)
[2017-05-30] MEDS: LOSARTAN 50 MG TABLET PO SCH (09:08)
[2017-05-30 11:40] VITALS: BP 125/61
== END 2017-05-30 12:03 | disposition home or self-care (01) | DRG 438 ==
LOC: N.ED 01:11 → SUATTDRO 03:59 → N.EDINP 03:59 → N.5E 04:29
PROVIDERS: ADMIT Internal Medicine; ATTEND Internal Medicine

== ENCOUNTER 2017-07-13 05:18 | Inpatient (IN) ==
[2017-07-13] MEDS ORDERED: ceFAZolin 1,000 MG VIAL ONE (05:59)
[2017-07-13] MEDS ORDERED: VANCOMYCIN 1,000 MG VIAL ONE (05:59)
[2017-07-13] MEDS ORDERED: SODIUM CHLORIDE 0.9% 500 ML IV SCH (06:00)
[2017-07-13] MEDS ORDERED: FAMOTIDINE 20 MG TABLET PO ONE (06:30)
[2017-07-13] MEDS ORDERED: ceFAZolin 1,000 MG in SYRINGE 1 EACH IV ONE (06:30)
[2017-07-13] MEDS ORDERED: VANCOMYCIN INJ 1,000 MG in SODIUM CHLORIDE 0.9% 250 ML IV ONE (06:30)
[2017-07-13] MEDS ORDERED: DIAZEPAM 5 MG TABLET PO ONE (06:30)
[2017-07-13 06:35] LABS: Hematocrit 28.2 VOL% (35.7-47.0); Hemoglobin 9.2 GM/DL (12.0-16.0)
[2017-07-13 07:07] LABS: Albumin 3.3 G/DL (3.4-5.0); Bilirubin,Total 0.7 MG/DL (0.2-1.0); Calcium 6.4 MG/DL (8.5-10.1); Osmolality,Calculated 286.5 MOS/KG (273-304); Potassium 3.4 MMOL/L (3.5-5.1)
[2017-07-13] MEDS ORDERED: diphenhydrAMINE CAP 25 MG CAPSULE PO PRN (07:39)
[2017-07-13] MEDS ORDERED: MORPHINE 10 MG/1 ML VIAL IV PRN ×2 (07:39)
[2017-07-13] MEDS ORDERED: oxyCODONE IR 5 MG TABLET PO PRN (07:39)
[2017-07-13] MEDS ORDERED: TRANEXAMIC ACID 1,000 MG/10 ML VIAL IV ONE (07:47)
[2017-07-13] MEDS ORDERED: BACITRACIN OINT 0.9 GM PACK TOP ONE (08:43)
[2017-07-13] MEDS ORDERED: ONDANSETRON 4 MG/2 ML VIAL IV PRN (09:25)
[2017-07-13] MEDS: HYDROmorphone 2 MG/1 ML VIAL IV PRN ×6 (09:30→23:04)
[2017-07-13] MEDS ORDERED: GABAPENTIN 300 MG CAPSULE PO PRN (09:30)
[2017-07-13] MEDS ORDERED: PROPOFOL 500 MG/50 ML BOTTLE IV ONE (09:31)
[2017-07-13] MEDS ORDERED: fentaNYL 100 MCG/2 ML VIAL ONE (09:31)
[2017-07-13] MEDS ORDERED: MIDAZOLAM 2 MG/2 ML VIAL ONE (09:31)
[2017-07-13] MEDS ORDERED: ACETAMINOPHEN 1,000 MG/100 ML VIAL IV ONE (09:31)
[2017-07-13] MEDS ORDERED: SODIUM CHLORIDE 0.9% 100 ML IV ONE (09:31)
[2017-07-13] MEDS ORDERED: ONDANSETRON 4 MG/2 ML VIAL ONE ×2 (09:31→09:32)
[2017-07-13] MEDS ORDERED: PHENYLEPHRINE 50 MG/5 ML VIAL ONE (09:31)
[2017-07-13] MEDS ORDERED: SODIUM CHLORIDE 0.9% 250 ML IV ONE (09:31)
[2017-07-13] MEDS ORDERED: MEPERIDINE 25 MG/1 ML VIAL ONE ×2 (09:56→10:06)
[2017-07-13] MEDS: MEPERIDINE 25 MG/1 ML VIAL IV PRN ×2 (10:00→10:10)
[2017-07-13] MEDS: SODIUM CHLORIDE 0.9% 1,000 ML IV SCH ×3 (12:34→23:10)
[2017-07-13] MEDS: ceFAZolin 2,000 MG in PREMIX 1 EACH IV SCH ×2 (12:39→20:23)
[2017-07-13] MEDS: ACETAMINOPHEN 500 MG TABLET PO SCH ×3 (13:05→23:03)
[2017-07-13] MEDS: CARVEDILOL 25 MG TABLET PO SCH ×2 (13:13→20:25)
[2017-07-13] MEDS: LOSARTAN 50 MG TABLET PO SCH (13:14)
[2017-07-13] MEDS: DOCUSATE SODIUM 100 MG CAPSULE PO SCH ×2 (13:31→20:25)
[2017-07-13] MEDS: PANTOPRAZOLE 40 MG TABLET PO SCH (13:31)
[2017-07-13] MEDS: ASPIRIN EC 325 MG TABLET PO SCH (13:31)
[2017-07-13] MEDS: CALCITRIOL 0.5 MCG CAPSULE PO SCH (13:31)
[2017-07-13] MEDS ORDERED: HYDROmorphone 2 MG/1 ML VIAL IV ONE (15:40)
[2017-07-13] MEDS ORDERED: HYDROmorphone 2 MG/1 ML VIAL IV PRN (15:41)
[2017-07-13] MEDS: SUCRALFATE 1 GM TABLET PO SCH (16:57)
[2017-07-14] MEDS: ACETAMINOPHEN 500 MG TABLET PO SCH (05:27)
[2017-07-14] MEDS: oxyCODONE IR 5 MG TABLET PO PRN (05:28)
[2017-07-14] MEDS: SODIUM CHLORIDE 0.9% 1,000 ML IV SCH (05:55)
[2017-07-14] MEDS: LEVOTHYROXINE 112 MCG TABLET PO SCH (06:05)
[2017-07-14 07:01] LABS: Basophils % 0.2 % (0.0-0.8); Eosinophils # 0.1 10*3/uL (0.0-0.87); Eosinophils % 0.9 % (0.00-10.9); Hematocrit 24.7 VOL% (35.7-47.0); Immature Granulocytes % 1.6 %; Immature Granulocytes Absolute 0.13 #; Lymphocytes # 0.5 10*3/uL (1.4-4.0); Lymphocytes % 6.5 % (21.3-54.2); Mean Corpuscular HGB Conc 32.4 GM/DL (32-36); Mean Corpuscular Hemoglobin 30 PG (27-34); Mean Corpuscular Volume 93.6 FL (87-102); Mean Platelet Volume 11.3 FL (9.6-12.0); Monocytes # 0.6 10*3/uL (0.11-0.8); Monocytes % 7.5 % (1.7-12.7); NRBC # 0.02 10*3/uL; Neutrophils # 6.7 10*3/uL (1.4-7.4); Neutrophils % 83.3 % (38.7-73.9); Platelet Count 184 T/CUMM (130-400); Red Blood Count 2.64 MC/CUMM (3.8-5.5); Red Cell Distribution Width 17.5 % (9.3-17.3); White Blood Count 8.1 T/CUMM (4-12)
[2017-07-14] MEDS ORDERED: ONDANSETRON 4 MG/2 ML VIAL IV PRN (07:15)
[2017-07-14 07:32] LABS: Calcium 6.1 MG/DL (8.5-10.1); Osmolality,Calculated 279.2 MOS/KG (273-304)
[2017-07-14] MEDS: HYDROmorphone 2 MG/1 ML VIAL IV PRN ×2 (08:38→15:21)
[2017-07-14] MEDS: SUCRALFATE 1 GM TABLET PO SCH ×2 (08:43→18:22)
[2017-07-14] MEDS: ASPIRIN EC 325 MG TABLET PO SCH (08:44)
[2017-07-14] MEDS: DOCUSATE SODIUM 100 MG CAPSULE PO SCH ×2 (08:44→21:23)
[2017-07-14] MEDS: CARVEDILOL 25 MG TABLET PO SCH ×2 (08:46→21:26)
[2017-07-14] MEDS: LOSARTAN 50 MG TABLET PO SCH (08:46)
[2017-07-14] MEDS: PANTOPRAZOLE 40 MG TABLET PO SCH (08:47)
[2017-07-14] MEDS: CALCITRIOL 0.5 MCG CAPSULE PO SCH (08:47)
[2017-07-15] MEDS: LEVOTHYROXINE 112 MCG TABLET PO SCH (06:19)
[2017-07-15 07:23] LABS: Basophils % 0.4 % (0.0-0.8); Eosinophils # 0.2 10*3/uL (0.0-0.87); Eosinophils % 3.2 % (0.00-10.9); Hematocrit 21.3 VOL% (35.7-47.0); Immature Granulocytes % 1.9 %; Immature Granulocytes Absolute 0.13 #; Lymphocytes # 0.7 10*3/uL (1.4-4.0); Lymphocytes % 9.9 % (21.3-54.2); Mean Corpuscular HGB Conc 32.9 GM/DL (32-36); Mean Corpuscular Hemoglobin 30 PG (27-34); Mean Corpuscular Volume 90.6 FL (87-102); Mean Platelet Volume 10.6 FL (9.6-12.0); Monocytes # 0.7 10*3/uL (0.11-0.8); Monocytes % 9.7 % (1.7-12.7); NRBC # 0.04 10*3/uL; Neutrophils # 5.2 10*3/uL (1.4-7.4); Neutrophils % 74.9 % (38.7-73.9); Platelet Count 148 T/CUMM (130-400); Red Blood Count 2.35 MC/CUMM (3.8-5.5); Red Cell Distribution Width 17.2 % (9.3-17.3); White Blood Count 6.9 T/CUMM (4-12)
[2017-07-15] MEDS: CARVEDILOL 25 MG TABLET PO SCH ×2 (08:22→21:25)
[2017-07-15] MEDS: LOSARTAN 50 MG TABLET PO SCH (08:22)
[2017-07-15] MEDS: PANTOPRAZOLE 40 MG TABLET PO SCH (08:29)
[2017-07-15] MEDS: ASPIRIN EC 325 MG TABLET PO SCH (08:29)
[2017-07-15] MEDS: SUCRALFATE 1 GM TABLET PO SCH ×2 (08:29→15:46)
[2017-07-15] MEDS: CALCITRIOL 0.5 MCG CAPSULE PO SCH (08:29)
[2017-07-15] MEDS: DOCUSATE SODIUM 100 MG CAPSULE PO SCH ×2 (08:29→21:25)
[2017-07-15] MEDS: MAGNESIUM HYDROXIDE SUSP 30 ML UDCUP PO PRN (21:25)
[2017-07-16 05:33] LABS: Basophils % 0.3 % (0.0-0.8); Eosinophils # 0.2 10*3/uL (0.0-0.87); Eosinophils % 2.7 % (0.00-10.9); Hematocrit 19.4 VOL% (35.7-47.0); Immature Granulocytes % 1.9 %; Immature Granulocytes Absolute 0.14 #; Lymphocytes # 0.5 10*3/uL (1.4-4.0); Mean Corpuscular Hemoglobin 31 PG (27-34); Mean Corpuscular Volume 90.7 FL (87-102); Mean Platelet Volume 11.2 FL (9.6-12.0); Monocytes # 0.5 10*3/uL (0.11-0.8); Monocytes % 6.5 % (1.7-12.7); NRBC # 0.04 10*3/uL; Neutrophils # 6.2 10*3/uL (1.4-7.4); Neutrophils % 81.6 % (38.7-73.9); Platelet Count 149 T/CUMM (130-400); Red Blood Count 2.14 MC/CUMM (3.8-5.5); Red Cell Distribution Width 17.1 % (9.3-17.3); White Blood Count 7.5 T/CUMM (4-12)
[2017-07-16 06:11] LABS: Hemoglobin 6.6 GM/DL (12.0-16.0)
[2017-07-16] MEDS: LEVOTHYROXINE 112 MCG TABLET PO SCH (06:12)
[2017-07-16] MEDS: MAGNESIUM HYDROXIDE SUSP 30 ML UDCUP PO PRN (06:35)
[2017-07-16] MEDS ORDERED: ACETAMINOPHEN 325 MG TABLET PO PRN (07:35)
[2017-07-16] MEDS ORDERED: SODIUM CHLORIDE 0.9% 1,000 ML IV PRN (07:35)
[2017-07-16] MEDS: SUCRALFATE 1 GM TABLET PO SCH ×2 (08:07→16:04)
[2017-07-16] MEDS: CARVEDILOL 25 MG TABLET PO SCH ×2 (08:07→21:01)
[2017-07-16] MEDS: LOSARTAN 50 MG TABLET PO SCH (08:07)
[2017-07-16] MEDS: DOCUSATE SODIUM 100 MG CAPSULE PO SCH ×2 (08:07→21:00)
[2017-07-16] MEDS: ASPIRIN EC 325 MG TABLET PO SCH (08:07)
[2017-07-16] MEDS: PANTOPRAZOLE 40 MG TABLET PO SCH (08:08)
[2017-07-16] MEDS: EPOETIN ALFA 10,000 UNIT/1 ML VIAL SUBCUT SCH (08:08)
[2017-07-16] MEDS: CALCITRIOL 0.5 MCG CAPSULE PO SCH (08:08)
[2017-07-16] MEDS ORDERED: LACTULOSE 20 GM/30 ML UDCUP PO ONE (08:41)
[2017-07-17 07:19] LABS: Basophils % 0.5 % (0.0-0.8); Eosinophils # 0.2 10*3/uL (0.0-0.87); Eosinophils % 2.6 % (0.00-10.9); Hematocrit 27.7 VOL% (35.7-47.0); Immature Granulocytes % 1.8 %; Immature Granulocytes Absolute 0.15 #; Lymphocytes # 0.4 10*3/uL (1.4-4.0); Mean Corpuscular HGB Conc 32.1 GM/DL (32-36); Mean Corpuscular Hemoglobin 28 PG (27-34); Mean Corpuscular Volume 86.8 FL (87-102); Mean Platelet Volume 10.6 FL (9.6-12.0); Monocytes # 0.4 10*3/uL (0.11-0.8); Monocytes % 4.8 % (1.7-12.7); NRBC # 0.03 10*3/uL; Neutrophils # 7.2 10*3/uL (1.4-7.4); Neutrophils % 85.3 % (38.7-73.9); Platelet Count 163 T/CUMM (130-400); Red Cell Distribution Width 20.2 % (9.3-17.3); White Blood Count 8.5 T/CUMM (4-12)
[2017-07-17] MEDS: LEVOTHYROXINE 112 MCG TABLET PO SCH (07:21)
[2017-07-17 07:25] LABS: Red Blood Count 3.19 MC/CUMM (3.8-5.5)
[2017-07-17 07:26] LABS: Hemoglobin 8.9 GM/DL (12.0-16.0)
[2017-07-17] MEDS: SUCRALFATE 1 GM TABLET PO SCH (08:04)
[2017-07-17] MEDS: PANTOPRAZOLE 40 MG TABLET PO SCH (08:05)
[2017-07-17] MEDS: DOCUSATE SODIUM 100 MG CAPSULE PO SCH (08:05)
[2017-07-17] MEDS: CALCITRIOL 0.5 MCG CAPSULE PO SCH (08:05)
[2017-07-17] MEDS: ASPIRIN EC 325 MG TABLET PO SCH (08:05)
[2017-07-17] MEDS: CARVEDILOL 25 MG TABLET PO SCH (08:10)
[2017-07-17] MEDS: LOSARTAN 50 MG TABLET PO SCH (08:11)
[2017-07-17] MEDS: oxyCODONE IR 5 MG TABLET PO PRN (10:46)
[2017-07-17 11:17] VITALS: BP 149/84
[2017-07-17] MEDS: EPOETIN ALFA 10,000 UNIT/1 ML VIAL SUBCUT SCH (13:00)
== END 2017-07-17 15:40 | disposition home health service (06) | DRG 469 ==
LOC: N.SDSINP 05:18 → N.3E 08:45
PROVIDERS: ADMIT Orthopaedic Surgery; ATTEND Orthopaedic Surgery

== ENCOUNTER 2017-11-15 10:36 | Inpatient (IN) ==
[2017-11-15 14:58] LABS: Basophils # 0.1 10*3/uL (0.0-0.2); Basophils % 0.7 % (0.0-0.8); Eosinophils # 0.1 10*3/uL (0.0-0.87); Eosinophils % 1.6 % (0.00-10.9); Hematocrit 30.3 VOL% (35.7-47.0); Hemoglobin 10.3 GM/DL (12.0-16.0); Immature Granulocytes % 0.9 %; Immature Granulocytes Absolute 0.08 #; Lymphocytes # 0.9 10*3/uL (1.4-4.0); Lymphocytes % 10.2 % (21.3-54.2); Mean Corpuscular Hemoglobin 31 PG (27-34); Mean Corpuscular Volume 89.9 FL (87-102); Mean Platelet Volume 10.5 FL (9.6-12.0); Monocytes # 0.8 10*3/uL (0.11-0.8); Monocytes % 8.6 % (1.7-12.7); Neutrophils # 6.8 10*3/uL (1.4-7.4); Platelet Count 233 T/CUMM (130-400); Red Blood Count 3.37 MC/CUMM (3.8-5.5); Red Cell Distribution Width 16.9 % (9.3-17.3); White Blood Count 8.7 T/CUMM (4-12)
[2017-11-15] MEDS ORDERED: ACETAMINOPHEN 325 MG TABLET PO PRN (15:12)
[2017-11-15] MEDS ORDERED: ONDANSETRON 4 MG/2 ML VIAL IV PRN (15:12)
[2017-11-15 15:22] LABS: Calcium 7.2 MG/DL (8.5-10.1); Potassium 2.9 MMOL/L (3.5-5.1)
[2017-11-15] MEDS: POTASSIUM CHLORIDE 20 MEQ TABLET PO PRN ×4 (17:02→23:13)
[2017-11-15] MEDS: CARVEDILOL 25 MG TABLET PO SCH (20:19)
[2017-11-16 06:10] LABS: Basophils % 0.5 % (0.0-0.8); Eosinophils # 0.1 10*3/uL (0.0-0.87); Eosinophils % 1.9 % (0.00-10.9); Hematocrit 28.1 VOL% (35.7-47.0); Hemoglobin 9.1 GM/DL (12.0-16.0); Immature Granulocytes % 1.4 %; Lymphocytes # 0.7 10*3/uL (1.4-4.0); Lymphocytes % 9.1 % (21.3-54.2); Mean Corpuscular HGB Conc 32.4 GM/DL (32-36); Mean Corpuscular Hemoglobin 30 PG (27-34); Mean Platelet Volume 10.9 FL (9.6-12.0); Monocytes # 0.5 10*3/uL (0.11-0.8); Monocytes % 7.4 % (1.7-12.7); NRBC # 0.02 10*3/uL; Neutrophils # 5.8 10*3/uL (1.4-7.4); Neutrophils % 79.7 % (38.7-73.9); Platelet Count 207 T/CUMM (130-400); Red Blood Count 3.02 MC/CUMM (3.8-5.5); White Blood Count 7.3 T/CUMM (4-12)
[2017-11-16] MEDS: LEVOTHYROXINE 112 MCG TABLET PO SCH (06:11)
[2017-11-16 06:21] LABS: Calcium 6.9 MG/DL (8.5-10.1); Osmolality,Calculated 276.4 MOS/KG (273-304); Potassium 3.6 MMOL/L (3.5-5.1)
[2017-11-16] MEDS: LOSARTAN 50 MG TABLET PO SCH (08:57)
[2017-11-16] MEDS: CARVEDILOL 25 MG TABLET PO SCH ×2 (08:57→17:19)
[2017-11-16] MEDS: PANTOPRAZOLE 40 MG TABLET PO SCH (08:57)
[2017-11-16] MEDS: POTASSIUM CHLORIDE 20 MEQ TABLET PO PRN ×2 (08:58→11:49)
[2017-11-16] MEDS: HEPARIN DRIP 25,000 UNITS/500 ML PREMIX IV SCH (13:13)
[2017-11-16] MEDS: diphenhydrAMINE CAP 25 MG CAPSULE PO PRN ×3 (13:28→23:12)
[2017-11-16] MEDS ORDERED: SKIN HEALING OINT (AQUAPHOR) 50 GM TUBE TOP PRN (15:17)
[2017-11-16] MEDS: WARFARIN 5 MG TABLET PO SCH (17:19)
[2017-11-17] MEDS: HEPARIN DRIP 25,000 UNITS/500 ML PREMIX IV SCH ×2 (02:22→16:16)
[2017-11-17 03:23] LABS: Basophils # 0.1 10*3/uL (0.0-0.2); Basophils % 0.8 % (0.0-0.8); Eosinophils # 0.2 10*3/uL (0.0-0.87); Eosinophils % 2.9 % (0.00-10.9); Hematocrit 27.8 VOL% (35.7-47.0); Immature Granulocytes % 1.4 %; Lymphocytes # 0.8 10*3/uL (1.4-4.0); Lymphocytes % 11.5 % (21.3-54.2); Mean Corpuscular HGB Conc 32.4 GM/DL (32-36); Mean Corpuscular Hemoglobin 30 PG (27-34); Mean Corpuscular Volume 92.7 FL (87-102); Mean Platelet Volume 10.8 FL (9.6-12.0); Monocytes # 0.5 10*3/uL (0.11-0.8); Monocytes % 6.6 % (1.7-12.7); NRBC # 0.02 10*3/uL; Neutrophils # 5.5 10*3/uL (1.4-7.4); Neutrophils % 76.8 % (38.7-73.9); Platelet Count 224 T/CUMM (130-400); Red Cell Distribution Width 16.8 % (9.3-17.3); White Blood Count 7.2 T/CUMM (4-12)
[2017-11-17 03:31] LABS: PT Patient Result 10.2 SECS
[2017-11-17 04:29] LABS: Calcium 7.1 MG/DL (8.5-10.1); Osmolality,Calculated 270.7 MOS/KG (273-304); Potassium 3.6 MMOL/L (3.5-5.1)
[2017-11-17] MEDS: LEVOTHYROXINE 112 MCG TABLET PO SCH (06:11)
[2017-11-17] MEDS: LOSARTAN 50 MG TABLET PO SCH (08:56)
[2017-11-17] MEDS: PANTOPRAZOLE 40 MG TABLET PO SCH (08:57)
[2017-11-17] MEDS: CARVEDILOL 25 MG TABLET PO SCH ×2 (10:05→16:10)
[2017-11-17] MEDS: WARFARIN 5 MG TABLET PO SCH (18:51)
[2017-11-17] MEDS: DOCUSATE SODIUM 100 MG CAPSULE PO SCH (18:51)
[2017-11-18] MEDS: HEPARIN DRIP 25,000 UNITS/500 ML PREMIX IV SCH ×2 (04:11→18:23)
[2017-11-18] MEDS: LEVOTHYROXINE 112 MCG TABLET PO SCH (06:00)
[2017-11-18 07:21] LABS: Basophils # 0.1 10*3/uL (0.0-0.2); Basophils % 0.9 % (0.0-0.8); Eosinophils # 0.3 10*3/uL (0.0-0.87); Eosinophils % 3.1 % (0.00-10.9); Hematocrit 30.3 VOL% (35.7-47.0); Hemoglobin 9.9 GM/DL (12.0-16.0); Immature Granulocytes % 1.9 %; Immature Granulocytes Absolute 0.15 #; Lymphocytes # 0.5 10*3/uL (1.4-4.0); Lymphocytes % 6.8 % (21.3-54.2); Mean Corpuscular HGB Conc 32.7 GM/DL (32-36); Mean Corpuscular Hemoglobin 30 PG (27-34); Mean Corpuscular Volume 91.8 FL (87-102); Mean Platelet Volume 10.7 FL (9.6-12.0); Monocytes # 0.5 10*3/uL (0.11-0.8); Monocytes % 5.8 % (1.7-12.7); NRBC # 0.03 10*3/uL; Neutrophils # 6.5 10*3/uL (1.4-7.4); Neutrophils % 81.5 % (38.7-73.9); Platelet Count 263 T/CUMM (130-400); Red Cell Distribution Width 16.5 % (9.3-17.3); White Blood Count 7.9 T/CUMM (4-12)
[2017-11-18 07:59] LABS: Calcium 7.4 MG/DL (8.5-10.1); Osmolality,Calculated 264.2 MOS/KG (273-304); Potassium 3.4 MMOL/L (3.5-5.1)
[2017-11-18 08:27] LABS: PT Patient Result 10.6 SECS
[2017-11-18 08:40] LABS: Calcium 7.4 MG/DL (8.5-10.1); Free T4 (Free Thyroxine) 0.7 NG/DL (0.76-1.46); Osmolality,Calculated 268.9 MOS/KG (273-304); Potassium 3.5 MMOL/L (3.5-5.1)
[2017-11-18] MEDS: CALCIUM ACETATE 667 MG CAPSULE PO SCH ×3 (09:03→17:30)
[2017-11-18] MEDS: PANTOPRAZOLE 40 MG TABLET PO SCH (09:03)
[2017-11-18] MEDS: DOCUSATE SODIUM 100 MG CAPSULE PO SCH ×2 (09:03→22:37)
[2017-11-18] MEDS: LOSARTAN 50 MG TABLET PO SCH (11:07)
[2017-11-18] MEDS: CARVEDILOL 25 MG TABLET PO SCH ×2 (11:07→19:14)
[2017-11-18] MEDS: METHOCARBAMOL 500 MG TABLET PO PRN (13:27)
[2017-11-18] MEDS: WARFARIN 5 MG TABLET PO SCH (17:31)
[2017-11-18] MEDS ORDERED: POLYETHYLENE GLYCOL POWDER 255 GM BOTTLE PO ONE (21:45)
[2017-11-19] MEDS: LEVOTHYROXINE 175 MCG TABLET PO SCH (05:58)
[2017-11-19 09:06] LABS: INR 1.2; PT Patient Result 12.2 SECS
[2017-11-19] MEDS: PANTOPRAZOLE 40 MG TABLET PO SCH (09:25)
[2017-11-19] MEDS: DOCUSATE SODIUM 100 MG CAPSULE PO SCH ×2 (09:25→22:11)
[2017-11-19] MEDS: LOSARTAN 50 MG TABLET PO SCH ×2 (09:25→09:27)
[2017-11-19] MEDS: CALCIUM ACETATE 667 MG CAPSULE PO SCH ×3 (09:25→17:45)
[2017-11-19] MEDS: CARVEDILOL 25 MG TABLET PO SCH ×3 (09:25→18:59)
[2017-11-19] MEDS: HEPARIN DRIP 25,000 UNITS/500 ML PREMIX IV SCH (11:39)
[2017-11-19] MEDS: METHOCARBAMOL 500 MG TABLET PO PRN (11:40)
[2017-11-19] MEDS: CYCLOBENZAPRINE 10 MG TABLET PO PRN (14:40)
[2017-11-19] MEDS: WARFARIN 5 MG TABLET PO SCH (17:45)
[2017-11-20 06:06] LABS: INR 1.5; PT Patient Result 15.6 SECS
[2017-11-20] MEDS: LEVOTHYROXINE 175 MCG TABLET PO SCH (06:51)
[2017-11-20] MEDS: DOCUSATE SODIUM 100 MG CAPSULE PO SCH ×2 (09:26→20:55)
[2017-11-20] MEDS: CALCIUM ACETATE 667 MG CAPSULE PO SCH ×3 (09:26→17:56)
[2017-11-20] MEDS: PANTOPRAZOLE 40 MG TABLET PO SCH (09:27)
[2017-11-20] MEDS: CARVEDILOL 25 MG TABLET PO SCH ×2 (09:27→17:50)
[2017-11-20] MEDS: LOSARTAN 50 MG TABLET PO SCH (09:28)
[2017-11-20] MEDS: CYCLOBENZAPRINE 10 MG TABLET PO PRN ×2 (10:43→18:01)
[2017-11-20] MEDS: WARFARIN 5 MG TABLET PO SCH (19:27)
[2017-11-21] MEDS: HEPARIN DRIP 25,000 UNITS/500 ML PREMIX IV SCH ×2 (05:09→19:40)
[2017-11-21] MEDS: LEVOTHYROXINE 175 MCG TABLET PO SCH ×2 (05:19→06:51)
[2017-11-21 06:14] LABS: Basophils # 0.1 10*3/uL (0.0-0.2); Basophils % 0.7 % (0.0-0.8); Eosinophils # 0.2 10*3/uL (0.0-0.87); Eosinophils % 2.5 % (0.00-10.9); Hematocrit 26.2 VOL% (35.7-47.0); Immature Granulocytes % 2.3 %; Immature Granulocytes Absolute 0.19 #; Lymphocytes # 0.8 10*3/uL (1.4-4.0); Lymphocytes % 9.1 % (21.3-54.2); Mean Corpuscular HGB Conc 34.4 GM/DL (32-36); Mean Corpuscular Hemoglobin 30 PG (27-34); Mean Platelet Volume 10.8 FL (9.6-12.0); Monocytes # 0.7 10*3/uL (0.11-0.8); Monocytes % 8.3 % (1.7-12.7); NRBC # 0.04 10*3/uL; Neutrophils # 6.4 10*3/uL (1.4-7.4); Neutrophils % 77.1 % (38.7-73.9); Platelet Count 305 T/CUMM (130-400); Red Blood Count 3.01 MC/CUMM (3.8-5.5); Red Cell Distribution Width 16.1 % (9.3-17.3); White Blood Count 8.3 T/CUMM (4-12)
[2017-11-21 06:27] LABS: Albumin 2.1 G/DL (3.4-5.0); Bilirubin,Total 0.6 MG/DL (0.2-1.0); Calcium 8.5 MG/DL (8.5-10.1); Osmolality,Calculated 258.5 MOS/KG (273-304); Potassium 2.9 MMOL/L (3.5-5.1); Total Protein 6.6 G/DL (6.4-8.3)
[2017-11-21 07:26] LABS: INR 1.9; PT Patient Result 19.5 SECS
[2017-11-21] MEDS: CYCLOBENZAPRINE 10 MG TABLET PO PRN (10:05)
[2017-11-21] MEDS: PANTOPRAZOLE 40 MG TABLET PO SCH (10:06)
[2017-11-21] MEDS: POTASSIUM CHLORIDE 20 MEQ TABLET PO PRN ×4 (10:06→19:04)
[2017-11-21] MEDS: CALCIUM ACETATE 667 MG CAPSULE PO SCH ×3 (10:14→17:17)
[2017-11-21] MEDS: LOSARTAN 50 MG TABLET PO SCH (10:15)
[2017-11-21] MEDS: CARVEDILOL 25 MG TABLET PO SCH ×2 (10:15→17:17)
[2017-11-21] MEDS: DOCUSATE SODIUM 100 MG CAPSULE PO SCH ×2 (10:15→21:04)
[2017-11-21] MEDS ORDERED: POTASSIUM CHLORIDE 20 MEQ TABLET PO ONE (10:47)
[2017-11-21] MEDS ORDERED: SODIUM CHLORIDE 0.9% 250 ML IV ONE (10:48)
[2017-11-21] MEDS ORDERED: WARFARIN 5 MG TABLET PO SCH ×2 (13:08→15:22)
[2017-11-21] MEDS ORDERED: SODIUM BICARBONATE 50 MEQ/50 ML SYRINGE IV ONE (19:00)
[2017-11-22 02:02] LABS: INR 2.5
[2017-11-22 02:03] LABS: PT Patient Result 25.3 SECS
[2017-11-22 02:15] LABS: Osmolality,Calculated 257.6 MOS/KG (273-304); Potassium 3.6 MMOL/L (3.5-5.1)
[2017-11-22] MEDS: LEVOTHYROXINE 175 MCG TABLET PO SCH (06:24)
[2017-11-22] MEDS: CALCIUM ACETATE 667 MG CAPSULE PO SCH ×3 (10:19→17:04)
[2017-11-22] MEDS: DOCUSATE SODIUM 100 MG CAPSULE PO SCH ×2 (10:20→20:26)
[2017-11-22] MEDS: PANTOPRAZOLE 40 MG TABLET PO SCH (10:20)
[2017-11-22] MEDS: LOSARTAN 50 MG TABLET PO SCH (10:20)
[2017-11-22] MEDS: CARVEDILOL 25 MG TABLET PO SCH ×2 (10:20→17:23)
[2017-11-22] MEDS: WARFARIN 5 MG TABLET PO SCH (17:04)
[2017-11-22] MEDS: CEFEPIME 1,000 MG VIAL INTRAPERIT SCH (18:14)
[2017-11-22] MEDS: VANCOMYCIN 1,000 MG VIAL INTRAPERIT SCH (18:14)
[2017-11-23 05:43] LABS: Basophils # 0.1 10*3/uL (0.0-0.2); Basophils % 0.8 % (0.0-0.8); Eosinophils # 0.2 10*3/uL (0.0-0.87); Eosinophils % 2.3 % (0.00-10.9); Hematocrit 27.3 VOL% (35.7-47.0); Immature Granulocytes % 4.6 %; Immature Granulocytes Absolute 0.36 #; Lymphocytes # 0.5 10*3/uL (1.4-4.0); Lymphocytes % 6.5 % (21.3-54.2); Mean Corpuscular Hemoglobin 30 PG (27-34); Mean Corpuscular Volume 90.4 FL (87-102); Monocytes # 0.6 10*3/uL (0.11-0.8); Monocytes % 7.3 % (1.7-12.7); NRBC # 0.03 10*3/uL; Neutrophils # 6.1 10*3/uL (1.4-7.4); Neutrophils % 78.5 % (38.7-73.9); Platelet Count 327 T/CUMM (130-400); Red Blood Count 3.02 MC/CUMM (3.8-5.5); Red Cell Distribution Width 15.9 % (9.3-17.3); White Blood Count 7.8 T/CUMM (4-12)
[2017-11-23 05:52] LABS: INR 3.5
[2017-11-23] MEDS: LEVOTHYROXINE 175 MCG TABLET PO SCH (05:52)
[2017-11-23 06:14] LABS: Albumin 2.1 G/DL (3.4-5.0); Bilirubin,Total 0.4 MG/DL (0.2-1.0); Calcium 8.3 MG/DL (8.5-10.1); Osmolality,Calculated 262.4 MOS/KG (273-304); Potassium 3.5 MMOL/L (3.5-5.1); Total Protein 6.6 G/DL (6.4-8.3)
[2017-11-23 06:22] LABS: PT Patient Result 34.9 SECS
[2017-11-23] MEDS: CALCIUM ACETATE 667 MG CAPSULE PO SCH ×3 (09:06→17:11)
[2017-11-23] MEDS: DOCUSATE SODIUM 100 MG CAPSULE PO SCH ×2 (09:06→22:20)
[2017-11-23] MEDS: PANTOPRAZOLE 40 MG TABLET PO SCH (09:07)
[2017-11-23] MEDS: CARVEDILOL 25 MG TABLET PO SCH ×2 (09:07→17:13)
[2017-11-23] MEDS: LOSARTAN 50 MG TABLET PO SCH (09:07)
[2017-11-23] MEDS: WARFARIN 5 MG TABLET PO SCH (17:12)
[2017-11-23] MEDS ORDERED: VANCOMYCIN 1,000 MG VIAL INTRAPERIT SCH (23:30)
[2017-11-23] MEDS: VANCOMYCIN 1,000 MG VIAL INTRAPERIT SCH ×2 (23:33→23:39)
[2017-11-23] MEDS: CEFEPIME 1,000 MG VIAL INTRAPERIT SCH (23:33)
[2017-11-24 05:47] LABS: Basophils # 0.1 10*3/uL (0.0-0.2); Basophils % 0.6 % (0.0-0.8); Eosinophils # 0.2 10*3/uL (0.0-0.87); Eosinophils % 2.5 % (0.00-10.9); Hematocrit 25.3 VOL% (35.7-47.0); Hemoglobin 8.7 GM/DL (12.0-16.0); Immature Granulocytes % 4.4 %; Immature Granulocytes Absolute 0.35 #; Lymphocytes # 0.7 10*3/uL (1.4-4.0); Mean Corpuscular HGB Conc 34.4 GM/DL (32-36); Mean Corpuscular Hemoglobin 30 PG (27-34); Mean Corpuscular Volume 87.2 FL (87-102); Mean Platelet Volume 9.9 FL (9.6-12.0); Monocytes # 0.6 10*3/uL (0.11-0.8); Monocytes % 7.4 % (1.7-12.7); NRBC # 0.03 10*3/uL; Neutrophils % 76.1 % (38.7-73.9); Platelet Count 339 T/CUMM (130-400); Red Cell Distribution Width 16.1 % (9.3-17.3); White Blood Count 7.9 T/CUMM (4-12)
[2017-11-24] MEDS: LEVOTHYROXINE 175 MCG TABLET PO SCH (05:58)
[2017-11-24 06:00] LABS: INR 3.6
[2017-11-24 06:07] LABS: Calcium 8.2 MG/DL (8.5-10.1); Osmolality,Calculated 261.2 MOS/KG (273-304); Potassium 3.8 MMOL/L (3.5-5.1)
[2017-11-24 06:48] LABS: PT Patient Result 36.5 SECS
[2017-11-24] MEDS: CALCIUM ACETATE 667 MG CAPSULE PO SCH ×3 (08:37→17:29)
[2017-11-24] MEDS: DOCUSATE SODIUM 100 MG CAPSULE PO SCH ×2 (08:38→20:00)
[2017-11-24] MEDS: LOSARTAN 50 MG TABLET PO SCH (08:38)
[2017-11-24] MEDS: CARVEDILOL 25 MG TABLET PO SCH ×2 (08:38→17:30)
[2017-11-24] MEDS: PANTOPRAZOLE 40 MG TABLET PO SCH (08:38)
[2017-11-24] MEDS: WARFARIN 5 MG TABLET PO SCH (17:29)
[2017-11-24] MEDS: CEFEPIME 1,000 MG VIAL INTRAPERIT SCH (18:27)
[2017-11-25] MEDS: LEVOTHYROXINE 175 MCG TABLET PO SCH (06:05)
[2017-11-25 07:19] LABS: INR 3.2
[2017-11-25 07:23] LABS: PT Patient Result 32.1 SECS
[2017-11-25 07:43] LABS: Calcium 7.9 MG/DL (8.5-10.1); Osmolality,Calculated 259.4 MOS/KG (273-304); Potassium 3.5 MMOL/L (3.5-5.1)
[2017-11-25] MEDS: DOCUSATE SODIUM 100 MG CAPSULE PO SCH ×2 (10:03→20:31)
[2017-11-25] MEDS: CALCIUM ACETATE 667 MG CAPSULE PO SCH ×3 (10:04→17:44)
[2017-11-25] MEDS: CYCLOBENZAPRINE 10 MG TABLET PO PRN (10:04)
[2017-11-25] MEDS: PANTOPRAZOLE 40 MG TABLET PO SCH (10:04)
[2017-11-25] MEDS: CARVEDILOL 25 MG TABLET PO SCH ×2 (11:57→17:45)
[2017-11-25] MEDS: LOSARTAN 50 MG TABLET PO SCH (11:57)
[2017-11-25] MEDS: CEFEPIME 1,000 MG VIAL INTRAPERIT SCH (19:11)
[2017-11-26] MEDS ORDERED: AMITRIPTYLINE 50 MG TABLET PO PRN (01:32)
[2017-11-26] MEDS: LEVOTHYROXINE 175 MCG TABLET PO SCH (05:57)
[2017-11-26] MEDS: CALCIUM ACETATE 667 MG CAPSULE PO SCH ×3 (09:08→17:08)
[2017-11-26] MEDS: PANTOPRAZOLE 40 MG TABLET PO SCH (09:08)
[2017-11-26] MEDS: DOCUSATE SODIUM 100 MG CAPSULE PO SCH ×2 (09:08→20:19)
[2017-11-26] MEDS: LOSARTAN 50 MG TABLET PO SCH (09:09)
[2017-11-26] MEDS: CARVEDILOL 25 MG TABLET PO SCH ×2 (09:09→17:08)
[2017-11-26] MEDS: CEFEPIME 1,000 MG VIAL INTRAPERIT SCH (19:29)
[2017-11-27] MEDS: LEVOTHYROXINE 175 MCG TABLET PO SCH (06:03)
[2017-11-27 07:00] LABS: INR 2.5
[2017-11-27 07:02] LABS: PT Patient Result 25.6 SECS
[2017-11-27] MEDS: PANTOPRAZOLE 40 MG TABLET PO SCH (09:15)
[2017-11-27] MEDS: CALCIUM ACETATE 667 MG CAPSULE PO SCH ×2 (09:15→12:43)
[2017-11-27] MEDS: DOCUSATE SODIUM 100 MG CAPSULE PO SCH (09:15)
[2017-11-27] MEDS: CARVEDILOL 25 MG TABLET PO SCH (09:16)
[2017-11-27] MEDS: LOSARTAN 50 MG TABLET PO SCH (09:17)
[2017-11-27 12:00] VITALS: BP 108/69
[2017-11-27] MEDS ORDERED: GABAPENTIN 100 MG CAPSULE PO SCH (21:00)
== END 2017-11-27 15:05 | disposition home or self-care (01) | DRG 175 ==
LOC: N.5E 14:15 → SUATTDRO 14:32
PROVIDERS: ADMIT Internal Medicine; ATTEND Internal Medicine

== ENCOUNTER 2018-02-10 21:10 | Inpatient (IN) ==
[2018-02-10 22:04] LABS: Basophils # 0.1 10*3/uL (0.0-0.2); Basophils % 0.7 % (0.0-0.8); Eosinophils # 0.2 10*3/uL (0.0-0.87); Hematocrit 28.2 VOL% (35.7-47.0); Hemoglobin 9.5 GM/DL (12.0-16.0); Immature Granulocytes Absolute 0.07 #; Lymphocytes # 0.8 10*3/uL (1.4-4.0); Lymphocytes % 11.9 % (21.3-54.2); Mean Corpuscular HGB Conc 33.7 GM/DL (32-36); Mean Corpuscular Hemoglobin 32 PG (27-34); Mean Corpuscular Volume 95.9 FL (87-102); Mean Platelet Volume 10.8 FL (9.6-12.0); Monocytes # 0.4 10*3/uL (0.11-0.8); Monocytes % 6.6 % (1.7-12.7); Neutrophils # 5.1 10*3/uL (1.4-7.4); Neutrophils % 76.8 % (38.7-73.9); Platelet Count 223 T/CUMM (130-400); Red Blood Count 2.94 MC/CUMM (3.8-5.5); Red Cell Distribution Width 17.1 % (9.3-17.3); White Blood Count 6.7 T/CUMM (4-12)
[2018-02-10 22:22] LABS: Alanine Aminotransferase 19 U/L (13-56); Albumin 2.9 G/DL (3.4-5.0); Alkaline Phosphatase 65 U/L (45-117); Amylase 119 U/L (25-115); Aspartate Amino Transferase 12 U/L (0-37); Blood Urea Nitrogen 42 MG/DL (7-18); Calcium 8.1 MG/DL (8.5-10.1); Glucose 111 MG/DL (74-106); Osmolality,Calculated 288.5 MOS/KG (273-304); Potassium 3.1 MMOL/L (3.5-5.1); Sodium 139 MMOL/L (136-145)
[2018-02-10 22:27] LABS: Lactic Acid 2.5 MMOL/L (0.4-2.0)
[2018-02-11 00:12] LABS: INR 0.9; PT Patient Result 9.9 SECS; Partial Thromboplastin Time 26.8 SECS (0-40)
[2018-02-11 06:58] LABS: Basophils % 0.8 % (0.0-0.8); Eosinophils # 0.2 10*3/uL (0.0-0.87); Eosinophils % 3.4 % (0.00-10.9); Hematocrit 25.8 VOL% (35.7-47.0); Hemoglobin 8.5 GM/DL (12.0-16.0); Immature Granulocytes % 1.2 %; Immature Granulocytes Absolute 0.06 #; Lymphocytes # 0.8 10*3/uL (1.4-4.0); Lymphocytes % 15.3 % (21.3-54.2); Mean Corpuscular HGB Conc 32.9 GM/DL (32-36); Mean Corpuscular Hemoglobin 32 PG (27-34); Mean Corpuscular Volume 96.6 FL (87-102); Mean Platelet Volume 10.4 FL (9.6-12.0); Monocytes # 0.4 10*3/uL (0.11-0.8); Monocytes % 7.4 % (1.7-12.7); Neutrophils # 3.6 10*3/uL (1.4-7.4); Neutrophils % 71.9 % (38.7-73.9); Platelet Count 195 T/CUMM (130-400); Red Blood Count 2.67 MC/CUMM (3.8-5.5)
[2018-02-11 07:25] LABS: Albumin 2.5 G/DL (3.4-5.0); Bilirubin,Total 0.4 MG/DL (0.2-1.0); Calcium 7.6 MG/DL (8.5-10.1); Osmolality,Calculated 287.4 MOS/KG (273-304); Potassium 3.2 MMOL/L (3.5-5.1); Total Protein 6.4 G/DL (6.4-8.3)
[2018-02-12 05:27] LABS: Basophils % 0.6 % (0.0-0.8); Eosinophils # 0.2 10*3/uL (0.0-0.87); Eosinophils % 2.9 % (0.00-10.9); Hematocrit 24.3 VOL% (35.7-47.0); Hemoglobin 8.1 GM/DL (12.0-16.0); Immature Granulocytes % 1.2 %; Immature Granulocytes Absolute 0.06 #; Lymphocytes # 0.6 10*3/uL (1.4-4.0); Lymphocytes % 10.6 % (21.3-54.2); Mean Corpuscular HGB Conc 33.3 GM/DL (32-36); Mean Corpuscular Hemoglobin 32 PG (27-34); Mean Corpuscular Volume 95.7 FL (87-102); Monocytes # 0.3 10*3/uL (0.11-0.8); Monocytes % 6.3 % (1.7-12.7); Neutrophils # 4.1 10*3/uL (1.4-7.4); Neutrophils % 78.4 % (38.7-73.9); Platelet Count 190 T/CUMM (130-400); Red Blood Count 2.54 MC/CUMM (3.8-5.5); White Blood Count 5.2 T/CUMM (4-12)
[2018-02-12 05:57] LABS: Calcium 7.1 MG/DL (8.5-10.1); Potassium 3.7 MMOL/L (3.5-5.1)
[2018-02-13 05:44] LABS: INR 0.9; PT Patient Result 9.9 SECS
[2018-02-14 06:34] LABS: Basophils # 0.1 10*3/uL (0.0-0.2); Eosinophils # 0.2 10*3/uL (0.0-0.87); Eosinophils % 3.1 % (0.00-10.9); Hematocrit 29.3 VOL% (35.7-47.0); Hemoglobin 9.7 GM/DL (12.0-16.0); Immature Granulocytes % 1.9 %; Immature Granulocytes Absolute 0.13 #; Lymphocytes # 0.9 10*3/uL (1.4-4.0); Lymphocytes % 12.9 % (21.3-54.2); Mean Corpuscular HGB Conc 33.1 GM/DL (32-36); Mean Corpuscular Hemoglobin 32 PG (27-34); Mean Corpuscular Volume 96.7 FL (87-102); Mean Platelet Volume 11.2 FL (9.6-12.0); Monocytes # 0.4 10*3/uL (0.11-0.8); Monocytes % 5.4 % (1.7-12.7); NRBC # 0.02 10*3/uL; Neutrophils # 5.2 10*3/uL (1.4-7.4); Neutrophils % 75.7 % (38.7-73.9); Red Blood Count 3.03 MC/CUMM (3.8-5.5); Red Cell Distribution Width 16.6 % (9.3-17.3); White Blood Count 6.8 T/CUMM (4-12)
[2018-02-14 06:35] LABS: Platelet Count 201 T/CUMM (130-400)
[2018-02-14 06:52] LABS: Calcium 7.6 MG/DL (8.5-10.1); Osmolality,Calculated 275.5 MOS/KG (273-304); Potassium 3.4 MMOL/L (3.5-5.1)
[2018-02-14 07:07] LABS: INR 0.9
[2018-02-14 08:05] LABS: Anisocytosis Slight; Ovalocytes Few; Polychromasia Slight; Tear Drop Cells Few
[2018-02-14 08:06] LABS: Platelet Estimate Adequate
[2018-02-14 20:43] LABS: Lactic Acid 2.1 MMOL/L (0.4-2.0)
[2018-02-15 11:13] VITALS: BP 109/58
== END 2018-02-15 15:35 | disposition home or self-care (01) | DRG 438 ==
LOC: N.ED 21:10 → SUATTDRO 23:36 → N.EDINP 23:36 → N.3E 02-11 01:44
PROVIDERS: ADMIT Hospitalist; ATTEND Internal Medicine

== ENCOUNTER 2019-03-08 10:43 | Observation (INO) ==
[2019-03-08] MEDS ORDERED: ASPIRIN 325 MG TABLET PO STA (12:22)
[2019-03-08] MEDS ORDERED: NITROGLYCERIN 2% OINT 1 INCH/GM PACK TOP STA (12:22)
[2019-03-08 13:37] LABS: Basophils # 0.1 10*3/uL (0.0-0.2); Eosinophils # 0.3 10*3/uL (0.0-0.87); Eosinophils % 4.3 % (0.00-10.9); Immature Granulocytes % 1.4 %; Lymphocytes # 0.9 10*3/uL (1.4-4.0); Lymphocytes % 12.3 % (21.3-54.2); Mean Corpuscular HGB Conc 32.1 GM/DL (32-36); Mean Corpuscular Volume 94.9 FL (87-102); Mean Platelet Volume 9.5 FL (9.6-12.0); Monocytes % 5.6 % (1.7-12.7); Neutrophils % 75.4 % (38.7-73.9); Platelet Count 271 T/CUMM (130-400); Red Blood Count 2.95 MC/CUMM (3.8-5.5); Red Cell Distribution Width 15.5 % (9.3-17.3); White Blood Count 7.2 T/CUMM (4-12)
[2019-03-08 13:47] LABS: INR 1.4; PT Patient Result 15.4 SECS (9.6-12.2); Partial Thromboplastin Time 33.4 SECS (20.8-36.0)
[2019-03-08 14:04] LABS: Alanine Aminotransferase 26 U/L (13-56); Albumin 2.8 G/DL (3.4-5.0); Alkaline Phosphatase 72 U/L (45-117); Aspartate Amino Transferase 14 U/L (0-37); Bilirubin,Total < 0.39 MG/DL (0.2-1.0); Blood Urea Nitrogen 60 MG/DL (7-18); Calcium 7.4 MG/DL (8.5-10.1); Glucose 92 MG/DL (74-106); Osmolality,Calculated 293.5 MOS/KG (273-304); Total Protein 7.3 G/DL (6.4-8.3)
[2019-03-08] MEDS ORDERED: MORPHINE 4 MG/1 ML VIAL IV PRN (14:22)
[2019-03-08] MEDS ORDERED: DEXTROSE 50% 25 GM/50 ML VIAL IV PRN (14:22)
[2019-03-08] MEDS ORDERED: ONDANSETRON 4 MG/2 ML VIAL IV PRN (14:22)
[2019-03-08] MEDS ORDERED: GLUCAGON 1 MG VIAL IM PRN (14:22)
[2019-03-08] MEDS ORDERED: ACETAMINOPHEN 325 MG TABLET PO PRN (14:22)
[2019-03-08] MEDS ORDERED: BISACODYL 5 MG TABLET PO PRN (14:22)
[2019-03-08] MEDS ORDERED: traMADol 50 MG TABLET PO PRN (14:28)
[2019-03-08 14:43] LABS: Risk Ratio 5.59; VLDL CHOLESTEROL 80.2 MG/DL
[2019-03-08] MEDS ORDERED: INSULIN LISPRO 100 UNIT/ML SUBCUT SCH (16:30)
[2019-03-08] MEDS: CALCIUM ACETATE 667 MG CAPSULE PO SCH (17:33)
[2019-03-08] MEDS: NON-FORMULARY MEDICATION (Sucroferric Oxyhydroxide [Velphoro] 1,000 MG) PO SCH (17:34)
[2019-03-08] MEDS: GABAPENTIN 300 MG CAPSULE PO SCH ×2 (20:56→20:57)
[2019-03-08] MEDS ORDERED: ENOXAPARIN 30 MG/0.3 ML SYRINGE SUBCUT SCH (21:00)
[2019-03-08] MEDS: CARVEDILOL 25 MG TABLET PO SCH (21:02)
[2019-03-09 04:51] LABS: Basophils # 0.1 10*3/uL (0.0-0.2); Basophils % 0.7 % (0.0-0.8); Eosinophils # 0.3 10*3/uL (0.0-0.87); Eosinophils % 4.5 % (0.00-10.9); Hematocrit 26.1 VOL% (35.7-47.0); Hemoglobin 8.2 GM/DL (12.0-16.0); Immature Granulocytes % 1.9 %; Immature Granulocytes Absolute 0.13 #; Lymphocytes % 14.5 % (21.3-54.2); Mean Corpuscular HGB Conc 31.4 GM/DL (32-36); Mean Platelet Volume 9.6 FL (9.6-12.0); Monocytes % 5.9 % (1.7-12.7); Neutrophils % 72.5 % (38.7-73.9); Platelet Count 263 T/CUMM (130-400); Red Blood Count 2.72 MC/CUMM (3.8-5.5); Red Cell Distribution Width 15.6 % (9.3-17.3); White Blood Count 6.7 T/CUMM (4-12)
[2019-03-09 04:59] LABS: INR 1.5; PT Patient Result 15.9 SECS (9.6-12.2)
[2019-03-09 05:58] LABS: Calcium 7.1 MG/DL (8.5-10.1); Osmolality,Calculated 293.5 MOS/KG (273-304)
[2019-03-09] MEDS ORDERED: LEVOTHYROXINE 175 MCG TABLET PO SCH (06:30)
[2019-03-09] MEDS ORDERED: NON-FORMULARY MEDICATION (Sucroferric Oxyhydroxide [Velphoro] 500 MG) PO SCH (09:00)
[2019-03-09] MEDS ORDERED: ROSUVASTATIN 20 MG TABLET PO SCH (09:00)
[2019-03-09] MEDS ORDERED: POTASSIUM CHLORIDE 20 MEQ TABLET PO SCH (09:00)
[2019-03-09] MEDS ORDERED: LOSARTAN 50 MG TABLET PO SCH (09:00)
[2019-03-09] MEDS ORDERED: PANTOPRAZOLE 40 MG TABLET PO SCH (09:00)
[2019-03-09] MEDS: CARVEDILOL 25 MG TABLET PO SCH (09:25)
[2019-03-09] MEDS: CALCIUM ACETATE 667 MG CAPSULE PO SCH (09:25)
[2019-03-09] MEDS: GABAPENTIN 300 MG CAPSULE PO SCH (09:25)
[2019-03-09] MEDS: NON-FORMULARY MEDICATION (Sucroferric Oxyhydroxide [Velphoro] 1,000 MG) PO SCH (09:26)
[2019-03-09 11:28] VITALS: BP 122/84
[2019-03-09] MEDS ORDERED: WARFARIN 3 MG TABLET PO SCH (18:00)
== END 2019-03-09 12:20 | disposition home or self-care (01) ==
LOC: N.ED 10:43 → N.EDINP 10:43 → N.5E 16:05
PROVIDERS: ADMIT Internal Medicine; ATTEND Internal Medicine

== ENCOUNTER 2019-06-17 09:07 | Inpatient (IN) ==
[2019-06-17] MEDS ORDERED: ALBUTEROL/IPRATROPIUM 3 ML NEB RESP TX STA (09:24)
[2019-06-17] MEDS ORDERED: ASPIRIN 325 MG TABLET PO STA (09:24)
[2019-06-17 10:07] LABS: Basophils # 0.1 10*3/uL (0.0-0.2); Basophils % 0.5 % (0.0-0.8); Eosinophils # 0.3 10*3/uL (0.0-0.87); Hematocrit 25.1 VOL% (35.7-47.0); Immature Granulocytes % 3.3 %; Immature Granulocytes Absolute 0.34 #; Lymphocytes # 0.9 10*3/uL (1.4-4.0); Lymphocytes % 9.1 % (21.3-54.2); Mean Corpuscular HGB Conc 31.9 GM/DL (32-36); Mean Corpuscular Volume 96.2 FL (87-102); Mean Platelet Volume 10.1 FL (9.6-12.0); Monocytes % 5.9 % (1.7-12.7); NRBC # 0.12 10*3/uL; Neutrophils % 78.2 % (38.7-73.9); Platelet Count 254 T/CUMM (130-400); Red Blood Count 2.61 MC/CUMM (3.8-5.5); Red Cell Distribution Width 14.9 % (9.3-17.3); White Blood Count 10.3 T/CUMM (4-12)
[2019-06-17 10:22] LABS: INR 1.1
[2019-06-17 10:31] LABS: Alanine Aminotransferase 35 U/L (13-56); Albumin 2.9 G/DL (3.4-5.0); Alkaline Phosphatase 60 U/L (45-117); Aspartate Amino Transferase 18 U/L (0-37); Bilirubin,Total < 0.39 MG/DL (0.2-1.0); Blood Urea Nitrogen 56 MG/DL (7-18); Estimated Glom Filtration Rate 3 ML/MIN; Glucose 143 MG/DL (74-106); Osmolality,Calculated 296.4 MOS/KG (273-304); Total Protein 6.9 G/DL (6.4-8.3); Troponin I < 0.015 NG/ML (0.00-0.045)
[2019-06-17] MEDS ORDERED: MORPHINE 4 MG/1 ML VIAL IV STA (11:02)
[2019-06-17] MEDS ORDERED: ONDANSETRON 4 MG/2 ML VIAL IV ONE (11:02)
[2019-06-17] MEDS ORDERED: ONDANSETRON 4 MG/2 ML VIAL IV PRN (11:25)
[2019-06-17] MEDS ORDERED: MORPHINE 4 MG/1 ML VIAL IV PRN (11:25)
[2019-06-17] MEDS ORDERED: ACETAMINOPHEN 325 MG TABLET PO PRN (11:25)
[2019-06-17 11:55] LABS: Risk Ratio 3.61; VLDL CHOLESTEROL 37.6 MG/DL
[2019-06-17] MEDS: PANTOPRAZOLE 40 MG TABLET PO SCH (15:33)
[2019-06-17] MEDS: SUCROFERRIC OXYHYDROXIDE 500 MG PO SCH ×2 (15:33→17:38)
[2019-06-17] MEDS: oxyCODONE/ACETAMINOPHEN 5-325 MG TABLET PO PRN ×2 (15:50→21:26)
[2019-06-17] MEDS: GABAPENTIN 300 MG CAPSULE PO SCH (21:26)
[2019-06-17] MEDS: carvediloL 25 MG TABLET PO SCH (21:26)
[2019-06-17] MEDS: DOCUSATE SODIUM 100 MG CAPSULE PO PRN (21:26)
[2019-06-18] MEDS: oxyCODONE/ACETAMINOPHEN 5-325 MG TABLET PO PRN (04:44)
[2019-06-18 05:08] LABS: Basophils % 0.5 % (0.0-0.8); Eosinophils # 0.3 10*3/uL (0.0-0.87); Eosinophils % 3.8 % (0.00-10.9); Hematocrit 22.9 VOL% (35.7-47.0); Hemoglobin 7.3 GM/DL (12.0-16.0); Immature Granulocytes % 3.2 %; Immature Granulocytes Absolute 0.26 #; Lymphocytes # 0.9 10*3/uL (1.4-4.0); Lymphocytes % 10.8 % (21.3-54.2); Mean Corpuscular HGB Conc 31.9 GM/DL (32-36); Mean Corpuscular Volume 96.6 FL (87-102); Mean Platelet Volume 10.5 FL (9.6-12.0); Monocytes % 5.3 % (1.7-12.7); NRBC # 0.14 10*3/uL; Neutrophils % 76.4 % (38.7-73.9); Platelet Count 251 T/CUMM (130-400); Red Blood Count 2.37 MC/CUMM (3.8-5.5); Red Cell Distribution Width 15.2 % (9.3-17.3); White Blood Count 8.3 T/CUMM (4-12)
[2019-06-18 05:25] LABS: INR 1.2; PT Patient Result 13.4 SECS (9.6-12.2)
[2019-06-18 05:26] LABS: Calcium 7.2 MG/DL (8.5-10.1); Osmolality,Calculated 290.8 MOS/KG (273-304)
[2019-06-18] MEDS: LEVOTHYROXINE 175 MCG TABLET PO SCH (06:08)
[2019-06-18] MEDS: SUCROFERRIC OXYHYDROXIDE 500 MG PO SCH ×3 (08:10→18:43)
[2019-06-18] MEDS ORDERED: SODIUM CHLORIDE 0.9% 1,000 ML IV PRN ×2 (08:32→10:01)
[2019-06-18] MEDS ORDERED: LOSARTAN 50 MG TABLET PO SCH (09:00)
[2019-06-18] MEDS ORDERED: PREGABALIN 25 MG CAPSULE PO SCH (09:00)
[2019-06-18] MEDS: POTASSIUM CHLORIDE 20 MEQ TABLET PO SCH (09:41)
[2019-06-18] MEDS: ASPIRIN CHEW 81 MG TABLET PO SCH (09:41)
[2019-06-18] MEDS: PANTOPRAZOLE 40 MG TABLET PO SCH (09:42)
[2019-06-18] MEDS: ROSUVASTATIN 20 MG TABLET PO SCH (09:42)
[2019-06-18] MEDS: DOCUSATE SODIUM 100 MG CAPSULE PO PRN (09:42)
[2019-06-18] MEDS: carvediloL 25 MG TABLET PO SCH ×2 (09:42→22:19)
[2019-06-18] MEDS: WARFARIN 3 MG TABLET PO SCH (18:43)
[2019-06-18] MEDS: GABAPENTIN 300 MG CAPSULE PO SCH (22:18)
[2019-06-18] MEDS: FOLIC ACID 0.4 MG TABLET PO SCH (22:18)
[2019-06-19] MEDS: LEVOTHYROXINE 175 MCG TABLET PO SCH (06:16)
[2019-06-19 06:42] LABS: Basophils # 0.1 10*3/uL (0.0-0.2); Basophils % 0.6 % (0.0-0.8); Eosinophils # 0.3 10*3/uL (0.0-0.87); Eosinophils % 3.4 % (0.00-10.9); Hematocrit 26.8 VOL% (35.7-47.0); Hemoglobin 8.5 GM/DL (12.0-16.0); Immature Granulocytes % 3.4 %; Immature Granulocytes Absolute 0.28 #; Lymphocytes # 0.8 10*3/uL (1.4-4.0); Lymphocytes % 10.2 % (21.3-54.2); Mean Corpuscular HGB Conc 31.7 GM/DL (32-36); Mean Corpuscular Volume 96.4 FL (87-102); Mean Platelet Volume 10.4 FL (9.6-12.0); Monocytes % 5.5 % (1.7-12.7); NRBC # 0.11 10*3/uL; Neutrophils % 76.9 % (38.7-73.9); Platelet Count 268 T/CUMM (130-400); Red Blood Count 2.78 MC/CUMM (3.8-5.5); Red Cell Distribution Width 15.5 % (9.3-17.3); White Blood Count 8.2 T/CUMM (4-12)
[2019-06-19 06:58] LABS: INR 1.2; PT Patient Result 13.5 SECS (9.6-12.2)
[2019-06-19 08:09] LABS: Troponin I < 0.015 NG/ML (0.00-0.045)
[2019-06-19] MEDS: carvediloL 25 MG TABLET PO SCH ×2 (09:15→21:38)
[2019-06-19] MEDS: PANTOPRAZOLE 40 MG TABLET PO SCH (09:15)
[2019-06-19] MEDS: ASPIRIN CHEW 81 MG TABLET PO SCH (09:15)
[2019-06-19] MEDS: FOLIC ACID 0.4 MG TABLET PO SCH ×2 (09:15→21:39)
[2019-06-19] MEDS: ROSUVASTATIN 20 MG TABLET PO SCH (09:15)
[2019-06-19] MEDS: POTASSIUM CHLORIDE 20 MEQ TABLET PO SCH (09:15)
[2019-06-19] MEDS: SUCROFERRIC OXYHYDROXIDE 500 MG PO SCH ×3 (09:16→17:16)
[2019-06-19] MEDS: ENOXAPARIN 100 MG/ML SYRINGE SUBCUT SCH (12:04)
[2019-06-19 13:22] LABS: INR 1.3; PT Patient Result 13.8 SECS (9.6-12.2)
[2019-06-19] MEDS: oxyCODONE/ACETAMINOPHEN 5-325 MG TABLET PO PRN (14:04)
[2019-06-19] MEDS ORDERED: WARFARIN 5 MG TABLET PO ONE (15:26)
[2019-06-19] MEDS: WARFARIN 3 MG TABLET PO SCH (19:14)
[2019-06-19] MEDS: GABAPENTIN 300 MG CAPSULE PO SCH (21:38)
[2019-06-20 04:54] LABS: Basophils # 0.1 10*3/uL (0.0-0.2); Basophils % 0.5 % (0.0-0.8); Eosinophils # 0.3 10*3/uL (0.0-0.87); Eosinophils % 3.3 % (0.00-10.9); Hematocrit 28.7 VOL% (35.7-47.0); Hemoglobin 8.9 GM/DL (12.0-16.0); Immature Granulocytes % 3.4 %; Immature Granulocytes Absolute 0.32 #; Mean Corpuscular Volume 98.3 FL (87-102); Monocytes % 6.6 % (1.7-12.7); NRBC # 0.11 10*3/uL; Neutrophils % 76.2 % (38.7-73.9); Platelet Count 279 T/CUMM (130-400); Red Blood Count 2.92 MC/CUMM (3.8-5.5); Red Cell Distribution Width 15.6 % (9.3-17.3); White Blood Count 9.5 T/CUMM (4-12)
[2019-06-20 05:00] LABS: INR 1.4; PT Patient Result 14.8 SECS (9.6-12.2)
[2019-06-20 05:30] LABS: Albumin 2.9 G/DL (3.4-5.0); Calcium 7.3 MG/DL (8.5-10.1); Osmolality,Calculated 291.8 MOS/KG (273-304)
[2019-06-20] MEDS: LEVOTHYROXINE 200 MCG TABLET PO SCH (05:52)
[2019-06-20] MEDS: ROSUVASTATIN 20 MG TABLET PO SCH (09:54)
[2019-06-20] MEDS: DOCUSATE SODIUM 100 MG CAPSULE PO PRN (09:54)
[2019-06-20] MEDS: PANTOPRAZOLE 40 MG TABLET PO SCH (09:54)
[2019-06-20] MEDS: POTASSIUM CHLORIDE 20 MEQ TABLET PO SCH (09:54)
[2019-06-20] MEDS: EPOETIN ALFA 10,000 UNIT/1 ML VIAL SUBCUT SCH (09:54)
[2019-06-20] MEDS: ASPIRIN CHEW 81 MG TABLET PO SCH (09:54)
[2019-06-20] MEDS: FOLIC ACID 0.4 MG TABLET PO SCH ×2 (09:54→20:26)
[2019-06-20] MEDS: carvediloL 25 MG TABLET PO SCH ×2 (09:54→20:26)
[2019-06-20] MEDS: SUCROFERRIC OXYHYDROXIDE 500 MG PO SCH ×3 (09:55→17:48)
[2019-06-20] MEDS: ENOXAPARIN 100 MG/ML SYRINGE SUBCUT SCH ×2 (12:39→12:41)
[2019-06-20] MEDS: KETOROLAC 30 MG/1 ML VIAL IV SCH ×2 (17:48→23:25)
[2019-06-20] MEDS: WARFARIN 3 MG TABLET PO SCH (17:49)
[2019-06-20] MEDS: GABAPENTIN 300 MG CAPSULE PO SCH (20:26)
[2019-06-21] MEDS: oxyCODONE/ACETAMINOPHEN 5-325 MG TABLET PO PRN (04:26)
[2019-06-21] MEDS: KETOROLAC 30 MG/1 ML VIAL IV SCH ×2 (04:57→12:33)
[2019-06-21 05:38] LABS: Basophils % 0.6 % (0.0-0.8); Eosinophils # 0.3 10*3/uL (0.0-0.87); Eosinophils % 3.5 % (0.00-10.9); Hematocrit 28.1 VOL% (35.7-47.0); Hemoglobin 8.7 GM/DL (12.0-16.0); INR 1.5; Immature Granulocytes % 3.6 %; Immature Granulocytes Absolute 0.26 #; Lymphocytes # 0.6 10*3/uL (1.4-4.0); Mean Corpuscular Volume 97.9 FL (87-102); Mean Platelet Volume 10.2 FL (9.6-12.0); Monocytes % 6.1 % (1.7-12.7); NRBC # 0.07 10*3/uL; Neutrophils % 78.2 % (38.7-73.9); PT Patient Result 16.4 SECS (9.6-12.2); Platelet Count 260 T/CUMM (130-400); Red Blood Count 2.87 MC/CUMM (3.8-5.5); Red Cell Distribution Width 15.6 % (9.3-17.3); White Blood Count 7.2 T/CUMM (4-12)
[2019-06-21] MEDS: LEVOTHYROXINE 200 MCG TABLET PO SCH (05:48)
[2019-06-21 05:52] LABS: Albumin 2.7 G/DL (3.4-5.0); Calcium 7.4 MG/DL (8.5-10.1)
[2019-06-21] MEDS ORDERED: TUBERCULIN SKIN TEST 0.1 ML SYRINGE INTRADERM ONE (08:44)
[2019-06-21] MEDS: PANTOPRAZOLE 40 MG TABLET PO SCH (09:42)
[2019-06-21] MEDS: carvediloL 25 MG TABLET PO SCH ×2 (09:42→21:40)
[2019-06-21] MEDS: ROSUVASTATIN 20 MG TABLET PO SCH (09:42)
[2019-06-21] MEDS: FOLIC ACID 0.4 MG TABLET PO SCH ×2 (09:42→21:40)
[2019-06-21] MEDS: ASPIRIN CHEW 81 MG TABLET PO SCH (09:42)
[2019-06-21] MEDS: SUCROFERRIC OXYHYDROXIDE 500 MG PO SCH ×3 (09:46→19:21)
[2019-06-21] MEDS: ENOXAPARIN 100 MG/ML SYRINGE SUBCUT SCH (11:35)
[2019-06-21] MEDS: WARFARIN 3 MG TABLET PO SCH (19:20)
[2019-06-21] MEDS: GABAPENTIN 300 MG CAPSULE PO SCH (21:40)
[2019-06-22] MEDS: LEVOTHYROXINE 200 MCG TABLET PO SCH (05:42)
[2019-06-22] MEDS: oxyCODONE/ACETAMINOPHEN 5-325 MG TABLET PO PRN (06:14)
[2019-06-22 06:49] LABS: Basophils % 0.3 % (0.0-0.8); Eosinophils # 0.4 10*3/uL (0.0-0.87); Eosinophils % 4.5 % (0.00-10.9); Hematocrit 28.7 VOL% (35.7-47.0); Hemoglobin 9.1 GM/DL (12.0-16.0); Immature Granulocytes % 2.1 %; Lymphocytes # 0.7 10*3/uL (1.4-4.0); Lymphocytes % 7.9 % (21.3-54.2); Mean Corpuscular HGB Conc 31.7 GM/DL (32-36); Monocytes % 4.7 % (1.7-12.7); NRBC # 0.09 10*3/uL; Neutrophils % 80.5 % (38.7-73.9); Platelet Count 262 T/CUMM (130-400); Red Blood Count 2.96 MC/CUMM (3.8-5.5); Red Cell Distribution Width 15.5 % (9.3-17.3); White Blood Count 9.4 T/CUMM (4-12)
[2019-06-22 06:56] LABS: INR 1.9; PT Patient Result 20.1 SECS (9.6-12.2)
[2019-06-22 07:07] LABS: Albumin 2.6 G/DL (3.4-5.0); Calcium 7.7 MG/DL (8.5-10.1); Osmolality,Calculated 284.2 MOS/KG (273-304)
[2019-06-22] MEDS: SUCROFERRIC OXYHYDROXIDE 500 MG PO SCH ×3 (09:06→18:22)
[2019-06-22] MEDS: ROSUVASTATIN 20 MG TABLET PO SCH (09:10)
[2019-06-22] MEDS: FOLIC ACID 0.4 MG TABLET PO SCH ×2 (09:10→22:15)
[2019-06-22] MEDS: PANTOPRAZOLE 40 MG TABLET PO SCH (09:10)
[2019-06-22] MEDS: ASPIRIN CHEW 81 MG TABLET PO SCH (09:10)
[2019-06-22] MEDS: carvediloL 25 MG TABLET PO SCH ×2 (09:10→22:15)
[2019-06-22] MEDS: DOCUSATE SODIUM 100 MG CAPSULE PO PRN ×2 (09:10→22:15)
[2019-06-22] MEDS: EPOETIN ALFA 10,000 UNIT/1 ML VIAL SUBCUT SCH (09:11)
[2019-06-22] MEDS: ENOXAPARIN 100 MG/ML SYRINGE SUBCUT SCH (12:40)
[2019-06-22] MEDS: WARFARIN 3 MG TABLET PO SCH (18:22)
[2019-06-22] MEDS: GABAPENTIN 300 MG CAPSULE PO SCH (22:15)
[2019-06-23] MEDS: LEVOTHYROXINE 200 MCG TABLET PO SCH (05:51)
[2019-06-23] MEDS: ASPIRIN CHEW 81 MG TABLET PO SCH (08:23)
[2019-06-23] MEDS: FOLIC ACID 0.4 MG TABLET PO SCH (08:23)
[2019-06-23] MEDS: PANTOPRAZOLE 40 MG TABLET PO SCH (08:23)
[2019-06-23] MEDS: SUCROFERRIC OXYHYDROXIDE 500 MG PO SCH ×2 (08:23→12:48)
[2019-06-23] MEDS: carvediloL 25 MG TABLET PO SCH (08:23)
[2019-06-23] MEDS: ROSUVASTATIN 20 MG TABLET PO SCH (08:23)
[2019-06-23] MEDS: oxyCODONE/ACETAMINOPHEN 5-325 MG TABLET PO PRN (10:43)
[2019-06-23] MEDS ORDERED: LOSARTAN 50 MG TABLET PO SCH (11:30)
[2019-06-23] MEDS: ENOXAPARIN 100 MG/ML SYRINGE SUBCUT SCH (11:35)
[2019-06-23 11:42] VITALS: BP 117/78
== END 2019-06-23 13:37 | disposition home or self-care (01) | DRG 291 ==
LOC: N.ED 09:07 → N.EDINP 11:25 → N.5E 12:06
PROVIDERS: ADMIT Internal Medicine; ATTEND Internal Medicine

== ENCOUNTER 2019-07-27 00:52 | Inpatient (IN) ==
[2019-07-27 03:38] LABS: Basophils % 0.2 % (0.0-0.8); Eosinophils # 0.1 10*3/uL (0.0-0.87); Eosinophils % 0.5 % (0.00-10.9); Hematocrit 30.1 VOL% (35.7-47.0); Hemoglobin 9.7 GM/DL (12.0-16.0); Immature Granulocytes % 1.1 %; Immature Granulocytes Absolute 0.19 #; Lymphocytes # 0.5 10*3/uL (1.4-4.0); Lymphocytes % 3.1 % (21.3-54.2); Mean Corpuscular HGB Conc 32.2 GM/DL (32-36); Mean Corpuscular Volume 91.5 FL (87-102); Mean Platelet Volume 11.3 FL (9.6-12.0); Monocytes % 3.4 % (1.7-12.7); Neutrophils % 91.7 % (38.7-73.9); Platelet Count 226 T/CUMM (130-400); Red Blood Count 3.29 MC/CUMM (3.8-5.5); Red Cell Distribution Width 14.6 % (9.3-17.3)
[2019-07-27 03:45] LABS: Calcium 7.7 MG/DL (8.5-10.1); Osmolality,Calculated 276.5 MOS/KG (273-304)
[2019-07-27] MEDS ORDERED: ONDANSETRON 4 MG/2 ML VIAL IV STA (04:08)
[2019-07-27] MEDS ORDERED: MORPHINE 4 MG/1 ML VIAL IV STA (04:08)
[2019-07-27] MEDS ORDERED: POTASSIUM CHLORIDE 20 MEQ TABLET PO STA (04:08)
[2019-07-27 04:22] LABS: Albumin 2.1 G/DL (3.4-5.0); Bilirubin,Total 0.4 MG/DL (0.2-1.0); Calcium 7.9 MG/DL (8.5-10.1); Osmolality,Calculated 275.5 MOS/KG (273-304); Total Protein 7.4 G/DL (6.4-8.3)
[2019-07-27] MEDS ORDERED: NICOTINE 21 MG/24 HR PATCH TRANSDERM PRN (04:24)
[2019-07-27 04:49] LABS: Eosinophils 1 % (0-10); Lymphocytes 4 % (20-55); Platelet Estimate Normal; Segmented Neutrophils 92 % (50-85); Total Cells Counted 100
[2019-07-27 04:53] LABS: Microcytosis Slight; Polychromasia Slight
[2019-07-27 04:54] LABS: Tear Drop Cells Few
[2019-07-27 06:37] LABS: PT Patient Result 95.2 SECS (9.6-12.2)
[2019-07-27 06:41] LABS: INR 8.9
[2019-07-27] MEDS ORDERED: PHYTONADIONE 10 MG/1 ML AMP SUBCUT ONE (07:30)
[2019-07-27] MEDS: MORPHINE 4 MG/1 ML VIAL IV PRN ×3 (08:35→23:21)
[2019-07-27] MEDS: POTASSIUM CHLORIDE 20 MEQ TABLET PO PRN ×4 (12:13→18:11)
[2019-07-27] MEDS ORDERED: ceFAZolin 1,000 MG VIAL INTRAPERIT ONE (14:00)
[2019-07-27] MEDS ORDERED: HEPARIN 10,000 UNIT/10 ML VIAL INTRAPERIT ONE (14:00)
[2019-07-27] MEDS ORDERED: GABAPENTIN 300 MG CAPSULE PO PRN (15:21)
[2019-07-27] MEDS: SUCROFERRIC OXYHYDROXIDE 1500 MG PO SCH (16:39)
[2019-07-28 05:34] LABS: Basophils # 0.1 10*3/uL (0.0-0.2); Basophils % 0.4 % (0.0-0.8); Eosinophils # 0.3 10*3/uL (0.0-0.87); Eosinophils % 1.7 % (0.00-10.9); Hematocrit 25.8 VOL% (35.7-47.0); Hemoglobin 8.3 GM/DL (12.0-16.0); Immature Granulocytes % 1.2 %; Immature Granulocytes Absolute 0.19 #; Lymphocytes # 0.6 10*3/uL (1.4-4.0); Lymphocytes % 3.5 % (21.3-54.2); Mean Corpuscular HGB Conc 32.2 GM/DL (32-36); Mean Corpuscular Volume 91.8 FL (87-102); Monocytes % 4.3 % (1.7-12.7); Neutrophils % 88.9 % (38.7-73.9); Platelet Count 204 T/CUMM (130-400); Red Blood Count 2.81 MC/CUMM (3.8-5.5); Red Cell Distribution Width 14.7 % (9.3-17.3); White Blood Count 16.1 T/CUMM (4-12)
[2019-07-28 05:40] LABS: INR 3.7
[2019-07-28 05:52] LABS: PT Patient Result 40.1 SECS (9.6-12.2)
[2019-07-28 06:04] LABS: Eosinophils 4 % (0-10); Lymphocytes 6 % (20-55); Segmented Neutrophils 89 % (50-85); Total Cells Counted 100
[2019-07-28 06:05] LABS: Hypochromasia 1+; Microcytosis 1+; Tear Drop Cells Slight
[2019-07-28 06:06] LABS: Platelet Estimate Normal
[2019-07-28] MEDS: LEVOTHYROXINE 200 MCG TABLET PO SCH (06:11)
[2019-07-28] MEDS: MORPHINE 4 MG/1 ML VIAL IV PRN ×3 (06:11→22:13)
[2019-07-28 06:12] LABS: Calcium 7.7 MG/DL (8.5-10.1); Osmolality,Calculated 279.4 MOS/KG (273-304)
[2019-07-28] MEDS: ROSUVASTATIN 20 MG TABLET PO SCH (09:31)
[2019-07-28] MEDS: POTASSIUM CHLORIDE 10 MEQ TABLET PO SCH (09:31)
[2019-07-28] MEDS: SUCROFERRIC OXYHYDROXIDE 1500 MG PO SCH ×4 (09:31→17:40)
[2019-07-28] MEDS: diphenhydrAMINE CAP 25 MG CAPSULE PO PRN ×2 (11:24→22:14)
[2019-07-28] MEDS: POTASSIUM CHLORIDE 20 MEQ TABLET PO PRN ×2 (11:24→13:24)
[2019-07-28] MEDS: ONDANSETRON 4 MG/2 ML VIAL IV PRN (13:24)
[2019-07-28] MEDS: ceFAZolin 1,000 MG VIAL INTRAPERIT SCH (23:28)
[2019-07-28] MEDS: HEPARIN 10,000 UNIT/10 ML VIAL INTRAPERIT SCH (23:29)
[2019-07-29] MEDS: LEVOTHYROXINE 200 MCG TABLET PO SCH (05:29)
[2019-07-29 05:49] LABS: INR 1.6; PT Patient Result 17.4 SECS (9.6-12.2)
[2019-07-29] MEDS: MORPHINE 4 MG/1 ML VIAL IV PRN ×4 (05:50→23:52)
[2019-07-29] MEDS: diphenhydrAMINE CAP 25 MG CAPSULE PO PRN ×3 (05:50→18:43)
[2019-07-29 05:51] LABS: Basophils # 0.1 10*3/uL (0.0-0.2); Basophils % 0.4 % (0.0-0.8); Eosinophils # 0.3 10*3/uL (0.0-0.87); Eosinophils % 2.1 % (0.00-10.9); Hematocrit 25.2 VOL% (35.7-47.0); Hemoglobin 8.1 GM/DL (12.0-16.0); Immature Granulocytes % 1.1 %; Immature Granulocytes Absolute 0.13 #; Lymphocytes # 0.5 10*3/uL (1.4-4.0); Lymphocytes % 3.8 % (21.3-54.2); Mean Corpuscular HGB Conc 32.1 GM/DL (32-36); Mean Corpuscular Volume 92.3 FL (87-102); Neutrophils % 86.6 % (38.7-73.9); Platelet Count 226 T/CUMM (130-400); Red Blood Count 2.73 MC/CUMM (3.8-5.5); Red Cell Distribution Width 14.7 % (9.3-17.3); White Blood Count 12.2 T/CUMM (4-12)
[2019-07-29 06:17] LABS: Calcium 7.9 MG/DL (8.5-10.1); Eosinophils 2 % (0-10); Hypochromasia 1+; Lymphocytes 3 % (20-55); Osmolality,Calculated 270.1 MOS/KG (273-304); Platelet Estimate Adequate; Segmented Neutrophils 91 % (50-85); Total Cells Counted 100
[2019-07-29 06:18] LABS: Microcytosis 1+
[2019-07-29] MEDS: SUCROFERRIC OXYHYDROXIDE 1500 MG PO SCH ×3 (09:13→16:16)
[2019-07-29] MEDS: ROSUVASTATIN 20 MG TABLET PO SCH (09:14)
[2019-07-29] MEDS: POTASSIUM CHLORIDE 10 MEQ TABLET PO SCH (09:14)
[2019-07-29] MEDS: POTASSIUM CHLORIDE 20 MEQ TABLET PO PRN (13:05)
[2019-07-29] MEDS: ONDANSETRON 4 MG/2 ML VIAL IV PRN ×3 (13:05→23:49)
[2019-07-30] MEDS: ceFAZolin 1,000 MG VIAL INTRAPERIT SCH ×2 (00:56→22:59)
[2019-07-30] MEDS: HEPARIN 10,000 UNIT/10 ML VIAL INTRAPERIT SCH ×2 (00:57→22:58)
[2019-07-30 05:07] LABS: Basophils # 0.1 10*3/uL (0.0-0.2); Basophils % 0.4 % (0.0-0.8); Eosinophils # 0.3 10*3/uL (0.0-0.87); Eosinophils % 2.5 % (0.00-10.9); Hematocrit 25.3 VOL% (35.7-47.0); Hemoglobin 8.3 GM/DL (12.0-16.0); Immature Granulocytes % 1.3 %; Immature Granulocytes Absolute 0.15 #; Lymphocytes # 0.5 10*3/uL (1.4-4.0); Lymphocytes % 3.9 % (21.3-54.2); Mean Corpuscular HGB Conc 32.8 GM/DL (32-36); Mean Platelet Volume 10.9 FL (9.6-12.0); Monocytes % 6.8 % (1.7-12.7); Neutrophils % 85.1 % (38.7-73.9); Platelet Count 235 T/CUMM (130-400); Red Blood Count 2.78 MC/CUMM (3.8-5.5); Red Cell Distribution Width 14.6 % (9.3-17.3); White Blood Count 11.7 T/CUMM (4-12)
[2019-07-30 05:38] LABS: Calcium 8.2 MG/DL (8.5-10.1); Eosinophils 5 % (0-10); Hypochromasia 2+; Lymphocytes 3 % (20-55); Osmolality,Calculated 267.2 MOS/KG (273-304); Segmented Neutrophils 85 % (50-85); Total Cells Counted 100
[2019-07-30 05:39] LABS: Platelet Estimate Normal
[2019-07-30] MEDS: ONDANSETRON 4 MG/2 ML VIAL IV PRN ×4 (06:13→21:51)
[2019-07-30] MEDS: diphenhydrAMINE CAP 25 MG CAPSULE PO PRN (06:14)
[2019-07-30] MEDS: MORPHINE 4 MG/1 ML VIAL IV PRN ×2 (06:14→13:57)
[2019-07-30] MEDS: LEVOTHYROXINE 200 MCG TABLET PO SCH (06:14)
[2019-07-30] MEDS: POTASSIUM CHLORIDE 10 MEQ TABLET PO SCH (09:00)
[2019-07-30] MEDS: ROSUVASTATIN 20 MG TABLET PO SCH (09:00)
[2019-07-30] MEDS: SUCROFERRIC OXYHYDROXIDE 1500 MG PO SCH ×3 (09:01→17:32)
[2019-07-30] MEDS: BISACODYL 5 MG TABLET PO PRN (16:13)
[2019-07-30] MEDS: PROMETHAZINE 25 MG/1 ML VIAL IM PRN (16:14)
[2019-07-31] MEDS: LEVOTHYROXINE 200 MCG TABLET PO SCH (05:45)
[2019-07-31 07:58] LABS: Basophils # 0.1 10*3/uL (0.0-0.2); Basophils % 0.4 % (0.0-0.8); Eosinophils # 0.1 10*3/uL (0.0-0.87); Eosinophils % 0.9 % (0.00-10.9); Hematocrit 27.8 VOL% (35.7-47.0); Hemoglobin 8.9 GM/DL (12.0-16.0); Immature Granulocytes % 1.2 %; Immature Granulocytes Absolute 0.15 #; Lymphocytes # 0.4 10*3/uL (1.4-4.0); Lymphocytes % 2.8 % (21.3-54.2); Mean Corpuscular Volume 92.4 FL (87-102); Mean Platelet Volume 10.4 FL (9.6-12.0); Monocytes % 4.1 % (1.7-12.7); Neutrophils % 90.6 % (38.7-73.9); Platelet Count 274 T/CUMM (130-400); Red Blood Count 3.01 MC/CUMM (3.8-5.5); Red Cell Distribution Width 15.2 % (9.3-17.3); White Blood Count 12.9 T/CUMM (4-12)
[2019-07-31 08:16] LABS: Eosinophils 1 % (0-10); Hypochromasia 2+; Lymphocytes 3 % (20-55); Microcytosis Slight; Platelet Estimate Adequate; Segmented Neutrophils 91 % (50-85); Total Cells Counted 100
[2019-07-31 08:25] LABS: Calcium 8.8 MG/DL (8.5-10.1); Osmolality,Calculated 267.4 MOS/KG (273-304)
[2019-07-31] MEDS: SUCROFERRIC OXYHYDROXIDE 1500 MG PO SCH ×3 (10:12→16:30)
[2019-07-31] MEDS: ONDANSETRON 4 MG/2 ML VIAL IV PRN ×2 (10:13→15:12)
[2019-07-31] MEDS: BISACODYL 5 MG TABLET PO PRN (10:15)
[2019-07-31] MEDS: POTASSIUM CHLORIDE 10 MEQ TABLET PO SCH (10:16)
[2019-07-31] MEDS: ROSUVASTATIN 20 MG TABLET PO SCH (10:16)
[2019-07-31] MEDS: PANTOPRAZOLE 40 MG TABLET PO SCH (12:07)
[2019-07-31] MEDS: LACTULOSE 20 GM/30 ML UDCUP PO SCH ×2 (12:08→22:02)
[2019-07-31] MEDS: DOCUSATE SODIUM 100 MG/10 ML UDCUP PO SCH ×2 (12:08→22:02)
[2019-07-31] MEDS: ceFAZolin 1,000 MG VIAL INTRAPERIT SCH (23:21)
[2019-07-31] MEDS: HEPARIN 10,000 UNIT/10 ML VIAL INTRAPERIT SCH (23:22)
[2019-08-01] MEDS: LEVOTHYROXINE 200 MCG TABLET PO SCH (05:42)
[2019-08-01] MEDS: MORPHINE 4 MG/1 ML VIAL IV PRN ×3 (06:22→23:42)
[2019-08-01] MEDS: LACTULOSE 20 GM/30 ML UDCUP PO SCH ×2 (09:08→20:21)
[2019-08-01] MEDS: SUCROFERRIC OXYHYDROXIDE 1500 MG PO SCH ×3 (09:08→17:54)
[2019-08-01] MEDS: DOCUSATE SODIUM 100 MG/10 ML UDCUP PO SCH ×2 (09:09→20:21)
[2019-08-01] MEDS: PANTOPRAZOLE 40 MG TABLET PO SCH ×2 (09:09→20:20)
[2019-08-01] MEDS: LOSARTAN 50 MG TABLET PO SCH (09:09)
[2019-08-01] MEDS: ROSUVASTATIN 20 MG TABLET PO SCH (09:09)
[2019-08-01] MEDS: POTASSIUM CHLORIDE 10 MEQ TABLET PO SCH (09:15)
[2019-08-01] MEDS: ONDANSETRON 4 MG/2 ML VIAL IV PRN ×3 (11:26→23:42)
[2019-08-01] MEDS: WARFARIN 7.5 MG TABLET PO SCH (17:56)
[2019-08-02] MEDS: ceFAZolin 1,000 MG VIAL INTRAPERIT SCH ×3 (00:06→23:49)
[2019-08-02] MEDS: HEPARIN 10,000 UNIT/10 ML VIAL INTRAPERIT SCH ×2 (00:06→23:50)
[2019-08-02 02:10] LABS: Neutrophils,Peritoneal Fluid 86 %
[2019-08-02 02:11] LABS: RBC,Peritoneal Fluid 179 T/CUMM
[2019-08-02 05:05] LABS: Basophils % 0.3 % (0.0-0.8); Eosinophils # 0.1 10*3/uL (0.0-0.87); Eosinophils % 1.1 % (0.00-10.9); Hemoglobin 7.7 GM/DL (12.0-16.0); Immature Granulocytes % 2.1 %; Immature Granulocytes Absolute 0.26 #; Lymphocytes # 0.4 10*3/uL (1.4-4.0); Lymphocytes % 3.5 % (21.3-54.2); Mean Corpuscular HGB Conc 32.1 GM/DL (32-36); Mean Platelet Volume 10.5 FL (9.6-12.0); Monocytes % 4.7 % (1.7-12.7); Neutrophils % 88.3 % (38.7-73.9); Platelet Count 290 T/CUMM (130-400); Red Blood Count 2.61 MC/CUMM (3.8-5.5); Red Cell Distribution Width 15.8 % (9.3-17.3); White Blood Count 12.7 T/CUMM (4-12)
[2019-08-02 05:13] LABS: INR 1.1; PT Patient Result 11.7 SECS (9.6-12.2)
[2019-08-02] MEDS: MORPHINE 4 MG/1 ML VIAL IV PRN ×4 (05:16→21:44)
[2019-08-02 05:26] LABS: Eosinophils 1 % (0-10); Hypochromasia 2+; Lymphocytes 5 % (20-55); Platelet Estimate Adequate; Segmented Neutrophils 86 % (50-85); Total Cells Counted 100
[2019-08-02 05:27] LABS: Microcytosis Slight
[2019-08-02] MEDS: LEVOTHYROXINE 200 MCG TABLET PO SCH (05:30)
[2019-08-02 05:34] LABS: Calcium 8.1 MG/DL (8.5-10.1); Osmolality,Calculated 273.7 MOS/KG (273-304)
[2019-08-02] MEDS: SUCROFERRIC OXYHYDROXIDE 1500 MG PO SCH ×3 (08:39→16:52)
[2019-08-02] MEDS ORDERED: SODIUM CHLORIDE 0.9% 1,000 ML IV PRN ×2 (08:46→10:46)
[2019-08-02] MEDS: ONDANSETRON 4 MG/2 ML VIAL IV PRN ×3 (09:35→21:44)
[2019-08-02] MEDS: ROSUVASTATIN 20 MG TABLET PO SCH (10:00)
[2019-08-02] MEDS: PANTOPRAZOLE 40 MG TABLET PO SCH ×2 (10:00→21:35)
[2019-08-02] MEDS: POTASSIUM CHLORIDE 10 MEQ TABLET PO SCH (10:01)
[2019-08-02] MEDS: LOSARTAN 50 MG TABLET PO SCH (10:01)
[2019-08-02] MEDS: DOCUSATE SODIUM 100 MG CAPSULE PO SCH ×2 (10:02→21:34)
[2019-08-02] MEDS: LACTULOSE 20 GM/30 ML UDCUP PO SCH ×2 (10:02→22:00)
[2019-08-02] MEDS: POTASSIUM CHLORIDE 20 MEQ TABLET PO PRN ×2 (10:27→17:08)
[2019-08-02] MEDS ORDERED: GENTAMICIN INJ 80 MG in PREMIX 1 EACH IV ONE (11:15)
[2019-08-02] MEDS: cefTRIAXone 1,000 MG in SYRINGE 1 EACH IV SCH (12:35)
[2019-08-02] MEDS: WARFARIN 7.5 MG TABLET PO SCH (17:08)
[2019-08-02 22:25] LABS: Hemoglobin 10.8 GM/DL (12.0-16.0)
[2019-08-03] MEDS: ceFAZolin 1,000 MG VIAL INTRAPERIT SCH ×4 (00:28→18:00)
[2019-08-03 05:10] LABS: Basophils # 0.1 10*3/uL (0.0-0.2); Basophils % 0.3 % (0.0-0.8); Eosinophils # 0.1 10*3/uL (0.0-0.87); Eosinophils % 0.7 % (0.00-10.9); Hematocrit 34.6 VOL% (35.7-47.0); Hemoglobin 11.3 GM/DL (12.0-16.0); Immature Granulocytes % 3.3 %; Lymphocytes # 0.5 10*3/uL (1.4-4.0); Lymphocytes % 3.3 % (21.3-54.2); Mean Corpuscular HGB Conc 32.7 GM/DL (32-36); Mean Corpuscular Volume 90.8 FL (87-102); Mean Platelet Volume 10.7 FL (9.6-12.0); Monocytes % 4.6 % (1.7-12.7); Neutrophils % 87.8 % (38.7-73.9); Platelet Count 283 T/CUMM (130-400); Red Blood Count 3.81 MC/CUMM (3.8-5.5); Red Cell Distribution Width 15.7 % (9.3-17.3); White Blood Count 15.3 T/CUMM (4-12)
[2019-08-03 05:29] LABS: Calcium 9.2 MG/DL (8.5-10.1); Osmolality,Calculated 266.2 MOS/KG (273-304)
[2019-08-03] MEDS: LEVOTHYROXINE 200 MCG TABLET PO SCH (05:38)
[2019-08-03 05:43] LABS: Band Neutrophils 1 % (0-10); Lymphocytes 2 % (20-55); Segmented Neutrophils 93 % (50-85); Total Cells Counted 100
[2019-08-03 05:44] LABS: Anisocytosis Slight; Hypochromasia 1+; Macrocytosis Slight; Ovalocytes 1+; Platelet Estimate Normal
[2019-08-03] MEDS: MORPHINE 4 MG/1 ML VIAL IV PRN ×2 (07:32→23:31)
[2019-08-03] MEDS: ONDANSETRON 4 MG/2 ML VIAL IV PRN (07:36)
[2019-08-03] MEDS: PANTOPRAZOLE 40 MG TABLET PO SCH ×2 (08:45→21:04)
[2019-08-03] MEDS: ROSUVASTATIN 20 MG TABLET PO SCH (08:45)
[2019-08-03] MEDS: LOSARTAN 50 MG TABLET PO SCH (08:45)
[2019-08-03] MEDS: DOCUSATE SODIUM 100 MG CAPSULE PO SCH ×2 (08:45→21:04)
[2019-08-03] MEDS: LACTULOSE 20 GM/30 ML UDCUP PO SCH ×2 (08:45→21:04)
[2019-08-03] MEDS: SUCROFERRIC OXYHYDROXIDE 1500 MG PO SCH ×3 (08:45→18:48)
[2019-08-03] MEDS: POTASSIUM CHLORIDE 10 MEQ TABLET PO SCH (08:45)
[2019-08-03 09:52] LABS: INR 1.2; PT Patient Result 12.7 SECS (9.6-12.2)
[2019-08-03] MEDS: PROMETHAZINE 25 MG/1 ML VIAL IM PRN (11:00)
[2019-08-03] MEDS ORDERED: BISACODYL 5 MG TABLET PO ONE (11:08)
[2019-08-03] MEDS: cefTRIAXone 1,000 MG in SYRINGE 1 EACH IV SCH (12:44)
[2019-08-03] MEDS: WARFARIN 7.5 MG TABLET PO SCH (18:49)
[2019-08-03] MEDS ORDERED: GENTAMICIN INJ 80 MG in PREMIX 1 EACH IV ONE (21:00)
[2019-08-03] MEDS: CLINDAMYCIN INJ 600 MG in PREMIX 1 EACH IV SCH (21:00)
[2019-08-04] MEDS: ceFAZolin 1,000 MG VIAL INTRAPERIT SCH ×4 (00:09→18:00)
[2019-08-04] MEDS: CLINDAMYCIN INJ 600 MG in PREMIX 1 EACH IV SCH ×3 (04:28→22:11)
[2019-08-04 05:00] LABS: Basophils % 0.3 % (0.0-0.8); Eosinophils # 0.2 10*3/uL (0.0-0.87); Eosinophils % 1.8 % (0.00-10.9); Hematocrit 34.3 VOL% (35.7-47.0); Hemoglobin 11.2 GM/DL (12.0-16.0); Immature Granulocytes % 2.2 %; Immature Granulocytes Absolute 0.26 #; Lymphocytes # 0.5 10*3/uL (1.4-4.0); Lymphocytes % 4.1 % (21.3-54.2); Mean Corpuscular HGB Conc 32.7 GM/DL (32-36); Mean Corpuscular Volume 90.5 FL (87-102); Mean Platelet Volume 10.6 FL (9.6-12.0); Monocytes % 4.6 % (1.7-12.7); Platelet Count 257 T/CUMM (130-400); Red Blood Count 3.79 MC/CUMM (3.8-5.5); Red Cell Distribution Width 15.9 % (9.3-17.3); White Blood Count 11.9 T/CUMM (4-12)
[2019-08-04 05:40] LABS: Calcium 8.9 MG/DL (8.5-10.1); Osmolality,Calculated 268.1 MOS/KG (273-304)
[2019-08-04 05:58] LABS: Eosinophils 1 % (0-10); Lymphocytes 1 % (20-55); Segmented Neutrophils 92 % (50-85); Total Cells Counted 100
[2019-08-04 05:59] LABS: Hypochromasia 1+; Macrocytosis Slight; Platelet Estimate Normal
[2019-08-04] MEDS: LEVOTHYROXINE 200 MCG TABLET PO SCH (06:48)
[2019-08-04] MEDS ORDERED: PHENOL 1.4% THROAT SPRAY 177 ML BOTTLE PO PRN (08:26)
[2019-08-04] MEDS: ROSUVASTATIN 20 MG TABLET PO SCH (09:02)
[2019-08-04] MEDS: LOSARTAN 50 MG TABLET PO SCH (09:02)
[2019-08-04] MEDS: POTASSIUM CHLORIDE 10 MEQ TABLET PO SCH (09:02)
[2019-08-04] MEDS: SUCROFERRIC OXYHYDROXIDE 1500 MG PO SCH ×3 (09:02→18:18)
[2019-08-04] MEDS: DOCUSATE SODIUM 100 MG CAPSULE PO SCH ×2 (09:02→22:23)
[2019-08-04] MEDS: LACTULOSE 20 GM/30 ML UDCUP PO SCH ×2 (09:02→22:23)
[2019-08-04] MEDS: PANTOPRAZOLE 40 MG TABLET PO SCH ×2 (09:02→22:23)
[2019-08-04] MEDS: ENOXAPARIN 100 MG/ML SYRINGE SUBCUT SCH (10:07)
[2019-08-04] MEDS: MORPHINE 4 MG/1 ML VIAL IV PRN ×2 (11:15→19:04)
[2019-08-04] MEDS: cefTRIAXone 1,000 MG in SYRINGE 1 EACH IV SCH (11:18)
[2019-08-04] MEDS: WARFARIN 7.5 MG TABLET PO SCH (18:18)
[2019-08-05] MEDS: ceFAZolin 1,000 MG VIAL INTRAPERIT SCH ×4 (00:19→17:08)
[2019-08-05] MEDS: MORPHINE 4 MG/1 ML VIAL IV PRN ×4 (01:20→17:09)
[2019-08-05] MEDS: CLINDAMYCIN INJ 600 MG in PREMIX 1 EACH IV SCH ×3 (04:17→20:57)
[2019-08-05 05:51] LABS: Basophils # 0.1 10*3/uL (0.0-0.2); Basophils % 0.3 % (0.0-0.8); Eosinophils # 0.2 10*3/uL (0.0-0.87); Eosinophils % 1.6 % (0.00-10.9); Hematocrit 30.1 VOL% (35.7-47.0); Hemoglobin 9.8 GM/DL (12.0-16.0); Immature Granulocytes % 1.8 %; Immature Granulocytes Absolute 0.26 #; Lymphocytes # 0.6 10*3/uL (1.4-4.0); Lymphocytes % 3.8 % (21.3-54.2); Mean Corpuscular HGB Conc 32.6 GM/DL (32-36); Mean Corpuscular Volume 90.4 FL (87-102); Mean Platelet Volume 11.2 FL (9.6-12.0); Monocytes % 4.1 % (1.7-12.7); Neutrophils % 88.4 % (38.7-73.9); Platelet Count 225 T/CUMM (130-400); Red Blood Count 3.33 MC/CUMM (3.8-5.5); Red Cell Distribution Width 15.9 % (9.3-17.3); White Blood Count 14.6 T/CUMM (4-12)
[2019-08-05 05:52] LABS: INR 2.3
[2019-08-05 06:17] LABS: Calcium 8.5 MG/DL (8.5-10.1); Osmolality,Calculated 277.5 MOS/KG (273-304)
[2019-08-05 06:24] LABS: Band Neutrophils 1 % (0-10); Lymphocytes 2 % (20-55); Platelet Estimate Normal; Segmented Neutrophils 90 % (50-85); Total Cells Counted 100
[2019-08-05 06:25] LABS: Anisocytosis Slight; Hypochromasia Slight; Microcytosis Slight; Target Cells 1+
[2019-08-05 06:52] LABS: PT Patient Result 24.3 SECS (9.6-12.2)
[2019-08-05] MEDS: LEVOTHYROXINE 200 MCG TABLET PO SCH (07:04)
[2019-08-05] MEDS: SUCROFERRIC OXYHYDROXIDE 1500 MG PO SCH ×3 (07:20→16:35)
[2019-08-05] MEDS: LACTULOSE 20 GM/30 ML UDCUP PO SCH ×2 (08:24→21:00)
[2019-08-05] MEDS: POTASSIUM CHLORIDE 10 MEQ TABLET PO SCH (08:24)
[2019-08-05] MEDS: DOCUSATE SODIUM 100 MG CAPSULE PO SCH ×2 (08:24→21:00)
[2019-08-05] MEDS: LOSARTAN 50 MG TABLET PO SCH (08:24)
[2019-08-05] MEDS: ROSUVASTATIN 20 MG TABLET PO SCH (08:24)
[2019-08-05] MEDS: PANTOPRAZOLE 40 MG TABLET PO SCH ×2 (08:25→21:00)
[2019-08-05] MEDS: ENOXAPARIN 100 MG/ML SYRINGE SUBCUT SCH (08:25)
[2019-08-05] MEDS ORDERED: KETOROLAC 15 MG/1 ML VIAL IV ONE (09:35)
[2019-08-05] MEDS: cefTRIAXone 1,000 MG in SYRINGE 1 EACH IV SCH (11:41)
[2019-08-05] MEDS ORDERED: GENTAMICIN INJ 80 MG in PREMIX 1 EACH IV ONE (12:33)
[2019-08-05] MEDS: WARFARIN 7.5 MG TABLET PO SCH (17:09)
[2019-08-06] MEDS: ceFAZolin 1,000 MG VIAL INTRAPERIT SCH ×2 (00:30→06:36)
[2019-08-06] MEDS: MORPHINE 4 MG/1 ML VIAL IV PRN (01:29)
[2019-08-06] MEDS: HYDROmorphone 2 MG/1 ML VIAL IV PRN ×4 (04:09→22:03)
[2019-08-06] MEDS: CLINDAMYCIN INJ 600 MG in PREMIX 1 EACH IV SCH ×3 (04:10→20:20)
[2019-08-06 05:51] LABS: INR 2.6; PT Patient Result 28.1 SECS (9.6-12.2)
[2019-08-06] MEDS: LEVOTHYROXINE 200 MCG TABLET PO SCH (05:55)
[2019-08-06] MEDS: SUCROFERRIC OXYHYDROXIDE 1500 MG PO SCH ×3 (07:49→17:07)
[2019-08-06] MEDS: LACTULOSE 20 GM/30 ML UDCUP PO SCH ×2 (08:37→20:24)
[2019-08-06] MEDS: POTASSIUM CHLORIDE 10 MEQ TABLET PO SCH (08:38)
[2019-08-06] MEDS: LOSARTAN 50 MG TABLET PO SCH (08:38)
[2019-08-06] MEDS: ROSUVASTATIN 20 MG TABLET PO SCH (08:38)
[2019-08-06] MEDS: ENOXAPARIN 100 MG/ML SYRINGE SUBCUT SCH (08:38)
[2019-08-06] MEDS: DOCUSATE SODIUM 100 MG CAPSULE PO SCH ×2 (08:38→20:24)
[2019-08-06] MEDS: PANTOPRAZOLE 40 MG TABLET PO SCH ×2 (08:39→20:25)
[2019-08-06 08:48] LABS: Basophils # 0.1 10*3/uL (0.0-0.2); Basophils % 0.4 % (0.0-0.8); Eosinophils # 0.3 10*3/uL (0.0-0.87); Eosinophils % 2.4 % (0.00-10.9); Hematocrit 30.8 VOL% (35.7-47.0); Hemoglobin 9.6 GM/DL (12.0-16.0); Immature Granulocytes % 2.6 %; Immature Granulocytes Absolute 0.36 #; Lymphocytes # 0.4 10*3/uL (1.4-4.0); Lymphocytes % 3.2 % (21.3-54.2); Mean Corpuscular HGB Conc 31.2 GM/DL (32-36); Mean Corpuscular Volume 93.6 FL (87-102); Mean Platelet Volume 11.9 FL (9.6-12.0); Neutrophils % 88.4 % (38.7-73.9); Platelet Count 198 T/CUMM (130-400); Red Blood Count 3.29 MC/CUMM (3.8-5.5); White Blood Count 13.6 T/CUMM (4-12)
[2019-08-06 09:12] LABS: Osmolality,Calculated 273.5 MOS/KG (273-304)
[2019-08-06] MEDS ORDERED: MAGNESIUM SULF RIDER 2 GM in PREMIX 1 EACH IV PRN (09:24)
[2019-08-06] MEDS ORDERED: MAGNESIUM SULF RIDER 4 GM in PREMIX 1 EACH IV PRN (09:24)
[2019-08-06 09:43] LABS: Band Neutrophils 10 % (0-10); Eosinophils 4 % (0-10); Lymphocytes 4 % (20-55); Platelet Estimate Normal; Segmented Neutrophils 80 % (50-85); Total Cells Counted 100
[2019-08-06 09:44] LABS: Anisocytosis 1+; Hypochromasia 1+; Macrocytosis 1+; Poikilocytosis Slight
[2019-08-06] MEDS ORDERED: ceFAZolin 2,000 MG in PREMIX 1 EACH IV ONE (10:34)
[2019-08-06] MEDS ORDERED: BUPIVACAINE MPF 0.25% 30 ML VIAL ONE (10:38)
[2019-08-06] MEDS ORDERED: HEPARIN 5,000 UNIT/1 ML VIAL ONE (10:38)
[2019-08-06] MEDS ORDERED: LIDOCAINE 1%/EPI INJ 20 ML VIAL ONE (10:38)
[2019-08-06] MEDS: POTASSIUM CHLORIDE RIDER 10 MEQ in PREMIX 1 EACH IV PRN ×5 (10:47→18:12)
[2019-08-06] MEDS ORDERED: propofoL 200 MG/20 ML VIAL IV ONE (15:14)
[2019-08-06] MEDS ORDERED: LIDOCAINE 2% 5 ML VIAL ONE (15:14)
[2019-08-06] MEDS ORDERED: fentaNYL 100 MCG/2 ML VIAL ONE (15:14)
[2019-08-06] MEDS ORDERED: SODIUM CHLORIDE 0.9% 100 ML IV ONE (15:14)
[2019-08-06] MEDS ORDERED: MIDAZOLAM 2 MG/2 ML VIAL ONE (15:14)
[2019-08-06] MEDS ORDERED: SODIUM CHLORIDE 0.9% 250 ML IV ONE (15:14)
[2019-08-06] MEDS: cefTRIAXone 1,000 MG in SYRINGE 1 EACH IV SCH (16:23)
[2019-08-06] MEDS: WARFARIN 7.5 MG TABLET PO SCH (17:33)
[2019-08-06] MEDS: ONDANSETRON 4 MG/2 ML VIAL IV PRN (22:02)
[2019-08-07 01:48] LABS: Basophils % 0.3 % (0.0-0.8); Eosinophils # 0.4 10*3/uL (0.0-0.87); Eosinophils % 2.5 % (0.00-10.9); Hematocrit 28.4 VOL% (35.7-47.0); Immature Granulocytes % 4.4 %; Immature Granulocytes Absolute 0.66 #; Lymphocytes # 0.5 10*3/uL (1.4-4.0); Lymphocytes % 3.3 % (21.3-54.2); Mean Corpuscular HGB Conc 31.7 GM/DL (32-36); Mean Corpuscular Volume 92.2 FL (87-102); Mean Platelet Volume 11.8 FL (9.6-12.0); NRBC # 0.02 10*3/uL; Neutrophils % 86.5 % (38.7-73.9); Platelet Count 192 T/CUMM (130-400); Red Blood Count 3.08 MC/CUMM (3.8-5.5); Red Cell Distribution Width 16.4 % (9.3-17.3); White Blood Count 14.9 T/CUMM (4-12)
[2019-08-07] MEDS: HYDROmorphone 2 MG/1 ML VIAL IV PRN ×4 (02:22→19:47)
[2019-08-07 02:41] LABS: INR 2.7
[2019-08-07 02:55] LABS: PT Patient Result 29.3 SECS (9.6-12.2)
[2019-08-07 03:01] LABS: Anisocytosis 1+; Eosinophils 3 % (0-10); Hypochromasia 1+; Lymphocytes 3 % (20-55); Microcytosis 1+; Segmented Neutrophils 90 % (50-85); Total Cells Counted 100
[2019-08-07 03:02] LABS: Platelet Estimate Adequate; Polychromasia 1+
[2019-08-07] MEDS: ONDANSETRON 4 MG/2 ML VIAL IV PRN ×4 (03:22→20:01)
[2019-08-07] MEDS: CLINDAMYCIN INJ 600 MG in PREMIX 1 EACH IV SCH ×3 (03:24→19:51)
[2019-08-07] MEDS: LEVOTHYROXINE 200 MCG TABLET PO SCH (05:46)
[2019-08-07] MEDS: POTASSIUM CHLORIDE RIDER 10 MEQ in PREMIX 1 EACH IV PRN ×4 (06:34→10:45)
[2019-08-07 07:16] LABS: Calcium 7.7 MG/DL (8.5-10.1)
[2019-08-07 07:17] LABS: Osmolality,Calculated 272.7 MOS/KG (273-304)
[2019-08-07] MEDS: SUCROFERRIC OXYHYDROXIDE 1500 MG PO SCH ×3 (07:26→16:01)
[2019-08-07] MEDS: ENOXAPARIN 100 MG/ML SYRINGE SUBCUT SCH (08:03)
[2019-08-07] MEDS: LACTULOSE 20 GM/30 ML UDCUP PO SCH ×2 (08:09→21:42)
[2019-08-07] MEDS: DOCUSATE SODIUM 100 MG CAPSULE PO SCH ×2 (08:09→21:42)
[2019-08-07] MEDS: ROSUVASTATIN 20 MG TABLET PO SCH (08:09)
[2019-08-07] MEDS: LOSARTAN 50 MG TABLET PO SCH (08:09)
[2019-08-07] MEDS: PANTOPRAZOLE 40 MG TABLET PO SCH ×2 (08:10→21:42)
[2019-08-07] MEDS: POTASSIUM CHLORIDE 10 MEQ TABLET PO SCH (08:10)
[2019-08-07] MEDS: cefTRIAXone 1,000 MG in SYRINGE 1 EACH IV SCH (12:02)
[2019-08-07] MEDS: WARFARIN 7.5 MG TABLET PO SCH (17:39)
[2019-08-07] MEDS: PROMETHAZINE 25 MG/1 ML VIAL IM PRN (21:37)
[2019-08-08] MEDS: ONDANSETRON 4 MG/2 ML VIAL IV PRN ×3 (00:43→14:10)
[2019-08-08] MEDS: HYDROmorphone 2 MG/1 ML VIAL IV PRN ×3 (02:58→14:12)
[2019-08-08] MEDS: CLINDAMYCIN INJ 600 MG in PREMIX 1 EACH IV SCH ×3 (03:00→21:57)
[2019-08-08 03:48] LABS: Basophils # 0.1 10*3/uL (0.0-0.2); Basophils % 0.4 % (0.0-0.8); Eosinophils # 0.3 10*3/uL (0.0-0.87); Hematocrit 27.7 VOL% (35.7-47.0); Hemoglobin 8.8 GM/DL (12.0-16.0); Immature Granulocytes % 3.9 %; Immature Granulocytes Absolute 0.65 #; Lymphocytes # 0.7 10*3/uL (1.4-4.0); Lymphocytes % 4.2 % (21.3-54.2); Mean Corpuscular HGB Conc 31.8 GM/DL (32-36); Mean Corpuscular Volume 91.4 FL (87-102); Mean Platelet Volume 11.8 FL (9.6-12.0); Monocytes % 3.7 % (1.7-12.7); NRBC # 0.03 10*3/uL; Neutrophils % 85.8 % (38.7-73.9); Platelet Count 177 T/CUMM (130-400); Red Blood Count 3.03 MC/CUMM (3.8-5.5); Red Cell Distribution Width 16.1 % (9.3-17.3); White Blood Count 16.6 T/CUMM (4-12)
[2019-08-08 04:22] LABS: Calcium 7.2 MG/DL (8.5-10.1); Osmolality,Calculated 279.4 MOS/KG (273-304)
[2019-08-08 04:24] LABS: Eosinophils 5 % (0-10); Hypochromasia 2+; Lymphocytes 10 % (20-55); Platelet Estimate Adequate; Segmented Neutrophils 83 % (50-85); Total Cells Counted 100
[2019-08-08 04:25] LABS: Ovalocytes Slight
[2019-08-08] MEDS: LEVOTHYROXINE 200 MCG TABLET PO SCH (05:48)
[2019-08-08] MEDS: ENOXAPARIN 100 MG/ML SYRINGE SUBCUT SCH (08:41)
[2019-08-08] MEDS: PANTOPRAZOLE 40 MG TABLET PO SCH (08:42)
[2019-08-08] MEDS: LACTULOSE 20 GM/30 ML UDCUP PO SCH ×2 (08:42→21:58)
[2019-08-08] MEDS: SUCROFERRIC OXYHYDROXIDE 1500 MG PO SCH ×3 (08:42→17:25)
[2019-08-08] MEDS: DOCUSATE SODIUM 100 MG CAPSULE PO SCH ×2 (08:42→21:58)
[2019-08-08] MEDS: LOSARTAN 50 MG TABLET PO SCH (08:43)
[2019-08-08] MEDS: ROSUVASTATIN 20 MG TABLET PO SCH (09:35)
[2019-08-08] MEDS: POTASSIUM CHLORIDE 10 MEQ TABLET PO SCH (09:35)
[2019-08-08 11:55] LABS: Hematocrit 26.6 VOL% (35.7-47.0); Hemoglobin 8.5 GM/DL (12.0-16.0)
[2019-08-08] MEDS: cefTRIAXone 1,000 MG in SYRINGE 1 EACH IV SCH (14:01)
[2019-08-08] MEDS: PANTOPRAZOLE 40 MG VIAL IV SCH ×2 (14:11→21:57)
[2019-08-08] MEDS ORDERED: HEPARIN 10,000 UNIT/10 ML VIAL IV SCH (16:30)
[2019-08-08] MEDS: WARFARIN 7.5 MG TABLET PO SCH (18:38)
[2019-08-08 20:39] LABS: PT Patient Result > 200.0 SECS (9.6-12.2)
[2019-08-08 20:40] LABS: INR > 20.0
[2019-08-08 21:50] LABS: PT Patient Result 188.7 SECS (9.6-12.2)
[2019-08-08 21:52] LABS: INR 17.8
[2019-08-09] MEDS: CLINDAMYCIN INJ 600 MG in PREMIX 1 EACH IV SCH ×3 (04:01→20:56)
[2019-08-09] MEDS ORDERED: SODIUM CHLORIDE 0.9% 1,000 ML IV PRN ×5 (05:13→17:28)
[2019-08-09] MEDS ORDERED: PHYTONADIONE 10 MG/1 ML AMP SUBCUT ONE (05:30)
[2019-08-09 05:42] LABS: Basophils # 0.1 10*3/uL (0.0-0.2); Basophils % 0.2 % (0.0-0.8); Eosinophils # 0.2 10*3/uL (0.0-0.87); Eosinophils % 0.7 % (0.00-10.9); Hematocrit 26.3 VOL% (35.7-47.0); Hemoglobin 8.1 GM/DL (12.0-16.0); Immature Granulocytes % 4.7 %; Immature Granulocytes Absolute 0.99 #; Lymphocytes # 1.1 10*3/uL (1.4-4.0); Lymphocytes % 5.2 % (21.3-54.2); Mean Corpuscular HGB Conc 30.8 GM/DL (32-36); Mean Corpuscular Volume 96.3 FL (87-102); Mean Platelet Volume 12.2 FL (9.6-12.0); Monocytes % 5.1 % (1.7-12.7); NRBC # 0.06 10*3/uL; Neutrophils % 84.1 % (38.7-73.9); Platelet Count 165 T/CUMM (130-400); Red Blood Count 2.73 MC/CUMM (3.8-5.5); Red Cell Distribution Width 16.5 % (9.3-17.3); White Blood Count 21.1 T/CUMM (4-12)
[2019-08-09] MEDS: LEVOTHYROXINE 200 MCG TABLET PO SCH (06:01)
[2019-08-09 06:04] LABS: Band Neutrophils 1 % (0-10); Eosinophils 1 % (0-10); Hypochromasia 1+; Lymphocytes 3 % (20-55); Ovalocytes Slight; Platelet Estimate Adequate; Segmented Neutrophils 92 % (50-85); Total Cells Counted 100
[2019-08-09 06:08] LABS: Calcium 7.9 MG/DL (8.5-10.1); Osmolality,Calculated 269.4 MOS/KG (273-304)
[2019-08-09 06:19] LABS: PT Patient Result 106.4 SECS (9.6-12.2)
[2019-08-09 06:20] LABS: Partial Thromboplastin Time 107.4 SECS (20.8-36.0)
[2019-08-09] MEDS: PANTOPRAZOLE 40 MG VIAL IV SCH ×2 (08:47→20:56)
[2019-08-09] MEDS: SUCROFERRIC OXYHYDROXIDE 1500 MG PO SCH ×3 (08:49→19:51)
[2019-08-09] MEDS: DOCUSATE SODIUM 100 MG CAPSULE PO SCH ×2 (08:49→21:00)
[2019-08-09] MEDS: LACTULOSE 20 GM/30 ML UDCUP PO SCH ×2 (08:49→21:00)
[2019-08-09] MEDS: POTASSIUM CHLORIDE 10 MEQ TABLET PO SCH (08:49)
[2019-08-09] MEDS: ROSUVASTATIN 20 MG TABLET PO SCH (08:49)
[2019-08-09] MEDS: LOSARTAN 50 MG TABLET PO SCH (08:49)
[2019-08-09] MEDS ORDERED: HYDROmorphone 2 MG/1 ML VIAL IV PRN (08:51)
[2019-08-09 10:07] LABS: Alanine Aminotransferase < 6 U/L (13-56); Albumin 1.3 G/DL (3.4-5.0); Alkaline Phosphatase 172 U/L (45-117); Aspartate Amino Transferase 33 U/L (0-37); Bilirubin,Direct < 0.100 MG/DL (0.0-0.20); Bilirubin,Indirect 0.3 MG/DL (0.0-1.0); Bilirubin,Total < 0.39 MG/DL (0.2-1.0)
[2019-08-09] MEDS: cefTRIAXone 1,000 MG in SYRINGE 1 EACH IV SCH (15:57)
[2019-08-09 17:09] LABS: Basophils % 0.2 % (0.0-0.8); Eosinophils # 0.2 10*3/uL (0.0-0.87); Eosinophils % 1.2 % (0.00-10.9); Hematocrit 20.3 VOL% (35.7-47.0); Immature Granulocytes % 7.6 %; Immature Granulocytes Absolute 1.24 #; Lymphocytes # 0.7 10*3/uL (1.4-4.0); Lymphocytes % 4.3 % (21.3-54.2); Mean Corpuscular HGB Conc 30.5 GM/DL (32-36); Mean Corpuscular Volume 96.2 FL (87-102); Mean Platelet Volume 11.8 FL (9.6-12.0); Monocytes % 4.5 % (1.7-12.7); NRBC # 0.03 10*3/uL; Neutrophils % 82.2 % (38.7-73.9); Platelet Count 139 T/CUMM (130-400); Red Blood Count 2.11 MC/CUMM (3.8-5.5); Red Cell Distribution Width 16.5 % (9.3-17.3); White Blood Count 16.3 T/CUMM (4-12)
[2019-08-09 17:13] LABS: Hemoglobin 6.2 GM/DL (12.0-16.0)
[2019-08-09 17:34] LABS: Lymphocytes 4 % (20-55); Platelet Estimate Adequate; Segmented Neutrophils 91 % (50-85); Total Cells Counted 100
[2019-08-09 17:35] LABS: Anisocytosis 1+; Hypochromasia 2+; Microcytosis 2+; Ovalocytes Few; Target Cells Few; Tear Drop Cells Few
[2019-08-09 18:22] LABS: INR 2.9
[2019-08-09 18:27] LABS: PT Patient Result 30.9 SECS (9.6-12.2); Partial Thromboplastin Time 82.1 SECS (20.8-36.0)
[2019-08-10] MEDS: CLINDAMYCIN INJ 600 MG in PREMIX 1 EACH IV SCH ×3 (03:58→20:40)
[2019-08-10 04:56] LABS: Basophils # 0.1 10*3/uL (0.0-0.2); Basophils % 0.3 % (0.0-0.8); Eosinophils # 0.2 10*3/uL (0.0-0.87); Eosinophils % 1.5 % (0.00-10.9); Hematocrit 23.6 VOL% (35.7-47.0); Hemoglobin 7.3 GM/DL (12.0-16.0); Immature Granulocytes % 6.7 %; Immature Granulocytes Absolute 1.05 #; Lymphocytes # 0.8 10*3/uL (1.4-4.0); Lymphocytes % 4.9 % (21.3-54.2); Mean Corpuscular HGB Conc 30.9 GM/DL (32-36); Mean Corpuscular Volume 94.4 FL (87-102); Mean Platelet Volume 11.7 FL (9.6-12.0); NRBC # 0.04 10*3/uL; Neutrophils % 82.6 % (38.7-73.9); Platelet Count 130 T/CUMM (130-400); Red Cell Distribution Width 17.1 % (9.3-17.3); White Blood Count 15.8 T/CUMM (4-12)
[2019-08-10 05:22] LABS: Band Neutrophils 1 % (0-10); Eosinophils 4 % (0-10); Lymphocytes 3 % (20-55); Segmented Neutrophils 88 % (50-85); Total Cells Counted 100
[2019-08-10 05:23] LABS: Hypochromasia 2+; Microcytosis Slight; Platelet Estimate Adequate
[2019-08-10 05:28] LABS: INR 2.9
[2019-08-10] MEDS: LEVOTHYROXINE 200 MCG TABLET PO SCH (05:44)
[2019-08-10 05:51] LABS: PT Patient Result 30.8 SECS (9.6-12.2); Partial Thromboplastin Time 81.1 SECS (20.8-36.0)
[2019-08-10] MEDS ORDERED: SODIUM CHLORIDE 0.9% 1,000 ML IV PRN (07:58)
[2019-08-10] MEDS: SUCROFERRIC OXYHYDROXIDE 1500 MG PO SCH ×3 (08:44→17:17)
[2019-08-10] MEDS: LACTULOSE 20 GM/30 ML UDCUP PO SCH ×2 (08:44→20:41)
[2019-08-10] MEDS: SODIUM CHLORIDE 0.9% 1,000 ML IV SCH (08:44)
[2019-08-10] MEDS: POTASSIUM CHLORIDE 10 MEQ TABLET PO SCH (08:44)
[2019-08-10] MEDS: DOCUSATE SODIUM 100 MG CAPSULE PO SCH ×2 (08:44→20:41)
[2019-08-10] MEDS: ROSUVASTATIN 20 MG TABLET PO SCH (08:44)
[2019-08-10] MEDS: PANTOPRAZOLE 40 MG VIAL IV SCH ×2 (08:45→20:40)
[2019-08-10] MEDS: HYDROmorphone 2 MG/1 ML VIAL IV PRN ×3 (12:51→20:51)
[2019-08-10] MEDS: cefTRIAXone 1,000 MG in SYRINGE 1 EACH IV SCH (16:50)
[2019-08-10] MEDS: TRACE ELEMENTS (5) 1 ML, MULTIVITAMIN INJ 10 ML in AMINO ACIDS/DEXT/LYTES 4.25-5% 2,000 ML IV SCH (17:00)
[2019-08-11] MEDS: HYDROmorphone 2 MG/1 ML VIAL IV PRN ×5 (00:56→16:00)
[2019-08-11] MEDS: CLINDAMYCIN INJ 600 MG in PREMIX 1 EACH IV SCH ×3 (04:15→16:00)
[2019-08-11 04:43] LABS: Basophils # 0.1 10*3/uL (0.0-0.2); Basophils % 0.6 % (0.0-0.8); Eosinophils # 0.2 10*3/uL (0.0-0.87); Eosinophils % 1.6 % (0.00-10.9); Hematocrit 30.8 VOL% (35.7-47.0); Hemoglobin 9.4 GM/DL (12.0-16.0); Immature Granulocytes % 6.8 %; Immature Granulocytes Absolute 1.01 #; Lymphocytes # 0.5 10*3/uL (1.4-4.0); Lymphocytes % 3.2 % (21.3-54.2); Mean Corpuscular HGB Conc 30.5 GM/DL (32-36); Mean Corpuscular Volume 93.3 FL (87-102); Mean Platelet Volume 12.2 FL (9.6-12.0); Monocytes % 3.9 % (1.7-12.7); NRBC # 0.05 10*3/uL; Neutrophils % 83.9 % (38.7-73.9); Platelet Count 95 T/CUMM (130-400); White Blood Count 14.9 T/CUMM (4-12)
[2019-08-11 05:11] LABS: Band Neutrophils 2 % (0-10); Eosinophils 1 % (0-10); Lymphocytes 3 % (20-55); Platelet Estimate Decreased; Segmented Neutrophils 89 % (50-85); Total Cells Counted 100
[2019-08-11 05:12] LABS: Hypochromasia 1+; Microcytosis Slight
[2019-08-11 05:17] LABS: Calcium 8.4 MG/DL (8.5-10.1); Osmolality,Calculated 272.4 MOS/KG (273-304)
[2019-08-11] MEDS: LEVOTHYROXINE 200 MCG TABLET PO SCH (05:52)
[2019-08-11] MEDS: SUCROFERRIC OXYHYDROXIDE 1500 MG PO SCH ×3 (07:28→16:44)
[2019-08-11] MEDS: SODIUM CHLORIDE 0.9% 1,000 ML IV SCH (07:52)
[2019-08-11 09:03] LABS: INR 1.4; PT Patient Result 15.4 SECS (9.6-12.2)
[2019-08-11] MEDS: LACTULOSE 20 GM/30 ML UDCUP PO SCH ×2 (09:11→21:09)
[2019-08-11] MEDS: ROSUVASTATIN 20 MG TABLET PO SCH (09:11)
[2019-08-11] MEDS: DOCUSATE SODIUM 100 MG CAPSULE PO SCH ×2 (09:11→21:09)
[2019-08-11] MEDS: POTASSIUM CHLORIDE 10 MEQ TABLET PO SCH (09:12)
[2019-08-11] MEDS: PANTOPRAZOLE 40 MG VIAL IV SCH ×2 (09:26→21:09)
[2019-08-11] MEDS: cefTRIAXone 1,000 MG in SYRINGE 1 EACH IV SCH (12:17)
[2019-08-11] MEDS: TRACE ELEMENTS (5) 1 ML, MULTIVITAMIN INJ 10 ML in AMINO ACIDS/DEXT/LYTES 4.25-5% 2,000 ML IV SCH (16:38)
[2019-08-12] MEDS: CLINDAMYCIN INJ 600 MG in PREMIX 1 EACH IV SCH ×3 (01:50→17:14)
[2019-08-12] MEDS: HYDROmorphone 2 MG/1 ML VIAL IV PRN (02:03)
[2019-08-12] MEDS: ONDANSETRON 4 MG/2 ML VIAL IV PRN (02:03)
[2019-08-12 05:13] LABS: Basophils # 0.1 10*3/uL (0.0-0.2); Basophils % 0.5 % (0.0-0.8); Eosinophils # 0.3 10*3/uL (0.0-0.87); Eosinophils % 1.6 % (0.00-10.9); Hematocrit 28.6 VOL% (35.7-47.0); Hemoglobin 8.7 GM/DL (12.0-16.0); Immature Granulocytes % 6.2 %; Immature Granulocytes Absolute 0.96 #; Lymphocytes # 0.5 10*3/uL (1.4-4.0); Lymphocytes % 3.3 % (21.3-54.2); Mean Corpuscular HGB Conc 30.4 GM/DL (32-36); Mean Corpuscular Volume 93.8 FL (87-102); Mean Platelet Volume 12.1 FL (9.6-12.0); Monocytes % 5.3 % (1.7-12.7); NRBC # 0.15 10*3/uL; Neutrophils % 83.1 % (38.7-73.9); Red Blood Count 3.05 MC/CUMM (3.8-5.5); Red Cell Distribution Width 17.7 % (9.3-17.3); White Blood Count 15.6 T/CUMM (4-12)
[2019-08-12 05:14] LABS: Albumin 1.6 G/DL (3.4-5.0); Calcium 8.4 MG/DL (8.5-10.1); Osmolality,Calculated 272.9 MOS/KG (273-304); Total Protein 6.2 G/DL (6.4-8.3)
[2019-08-12 05:15] LABS: Platelet Count 90 T/CUMM (130-400)
[2019-08-12 05:24] LABS: Band Neutrophils 2 % (0-10); Eosinophils 1 % (0-10); Hypochromasia 2+; Lymphocytes 6 % (20-55); Nucleated Red Blood Cells 1 (0-5); Platelet Estimate Decreased; Segmented Neutrophils 88 % (50-85); Total Cells Counted 100
[2019-08-12 05:25] LABS: Microcytosis Slight
[2019-08-12] MEDS: LEVOTHYROXINE 200 MCG TABLET PO SCH (06:26)
[2019-08-12] MEDS: MORPHINE 4 MG/1 ML VIAL IV PRN (06:39)
[2019-08-12] MEDS: POTASSIUM CHLORIDE 10 MEQ TABLET PO SCH (08:57)
[2019-08-12] MEDS: ROSUVASTATIN 20 MG TABLET PO SCH (08:57)
[2019-08-12] MEDS: DOCUSATE SODIUM 100 MG CAPSULE PO SCH ×2 (08:57→20:52)
[2019-08-12] MEDS: SUCROFERRIC OXYHYDROXIDE 1500 MG PO SCH ×3 (08:57→17:19)
[2019-08-12] MEDS: SODIUM CHLORIDE 0.9% 1,000 ML IV SCH (08:57)
[2019-08-12] MEDS: LACTULOSE 20 GM/30 ML UDCUP PO SCH ×2 (08:57→20:52)
[2019-08-12] MEDS: PANTOPRAZOLE 40 MG VIAL IV SCH ×2 (09:20→19:59)
[2019-08-12] MEDS ORDERED: KETOROLAC 30 MG/1 ML VIAL IM ONE (10:46)
[2019-08-12] MEDS: TRACE ELEMENTS (5) 1 ML, MULTIVITAMIN INJ 10 ML in AMINO ACIDS/DEXT/LYTES 4.25-5% 2,000 ML IV SCH (17:14)
[2019-08-12] MEDS ORDERED: fentaNYL 12 MCG/HR PATCH TRANSDERM SCH (19:00)
[2019-08-13] MEDS: CLINDAMYCIN INJ 600 MG in PREMIX 1 EACH IV SCH ×2 (00:42→09:09)
[2019-08-13] MEDS: LEVOTHYROXINE 200 MCG TABLET PO SCH (06:47)
[2019-08-13] MEDS ORDERED: LEVOTHYROXINE 100 MCG VIAL IV SCH (07:00)
[2019-08-13] MEDS: SUCROFERRIC OXYHYDROXIDE 1500 MG PO SCH ×3 (08:03→17:16)
[2019-08-13] MEDS: SODIUM CHLORIDE 0.9% 1,000 ML IV SCH (08:03)
[2019-08-13] MEDS: LACTULOSE 20 GM/30 ML UDCUP PO SCH ×2 (08:04→20:49)
[2019-08-13 09:00] LABS: Basophils # 0.1 10*3/uL (0.0-0.2); Basophils % 0.4 % (0.0-0.8); Eosinophils # 0.1 10*3/uL (0.0-0.87); Hematocrit 27.1 VOL% (35.7-47.0); Hemoglobin 8.4 GM/DL (12.0-16.0); Immature Granulocytes % 8.8 %; Immature Granulocytes Absolute 1.12 #; Lymphocytes # 0.6 10*3/uL (1.4-4.0); Lymphocytes % 4.5 % (21.3-54.2); Mean Corpuscular Volume 92.8 FL (87-102); Mean Platelet Volume 12.4 FL (9.6-12.0); Monocytes % 4.5 % (1.7-12.7); NRBC # 0.19 10*3/uL; Neutrophils % 80.8 % (38.7-73.9); Platelet Count 106 T/CUMM (130-400); Red Blood Count 2.92 MC/CUMM (3.8-5.5); Red Cell Distribution Width 17.2 % (9.3-17.3); White Blood Count 12.7 T/CUMM (4-12)
[2019-08-13] MEDS: PANTOPRAZOLE 40 MG VIAL IV SCH ×2 (09:08→20:49)
[2019-08-13] MEDS: DOCUSATE SODIUM 100 MG CAPSULE PO SCH ×2 (09:09→20:45)
[2019-08-13] MEDS: ROSUVASTATIN 20 MG TABLET PO SCH (09:09)
[2019-08-13] MEDS: POTASSIUM CHLORIDE 10 MEQ TABLET PO SCH (09:09)
[2019-08-13 09:18] LABS: Osmolality,Calculated 275.8 MOS/KG (273-304)
[2019-08-13 09:39] LABS: Band Neutrophils 2 % (0-10); Eosinophils 2 % (0-10); Hypochromasia 2+; Lymphocytes 7 % (20-55); Myelocytes 1 %; Nucleated Red Blood Cells 1 (0-5); Polychromasia Slight; Segmented Neutrophils 83 % (50-85); Total Cells Counted 100
[2019-08-13 09:40] LABS: Anisocytosis 1+; Microcytosis 1+; Ovalocytes Slight; Platelet Estimate Decreased
[2019-08-13] MEDS ORDERED: GABAPENTIN 300 MG CAPSULE PO ONE (11:41)
[2019-08-13] MEDS: INSULIN REGULAR 100 UNIT/ML SUBCUT SCH ×2 (12:45→18:34)
[2019-08-13] MEDS: TRACE ELEMENTS (5) 1 ML, MULTIVITAMIN INJ 10 ML in AMINO ACIDS/DEXT/LYTES 4.25-5% 2,000 ML IV SCH (17:14)
[2019-08-13] MEDS: GABAPENTIN 300 MG CAPSULE PO SCH (20:49)
[2019-08-14] MEDS: INSULIN REGULAR 100 UNIT/ML SUBCUT SCH ×4 (00:27→18:12)
[2019-08-14 05:52] LABS: Calcium 8.4 MG/DL (8.5-10.1); Osmolality,Calculated 267.5 MOS/KG (273-304)
[2019-08-14] MEDS: LEVOTHYROXINE 100 MCG VIAL IV SCH (06:13)
[2019-08-14 06:53] LABS: Basophils # 0.1 10*3/uL (0.0-0.2); Basophils % 0.6 % (0.0-0.8); Eosinophils # 0.2 10*3/uL (0.0-0.87); Eosinophils % 1.8 % (0.00-10.9); Hematocrit 22.8 VOL% (35.7-47.0); Hemoglobin 7.1 GM/DL (12.0-16.0); Immature Granulocytes % 8.8 %; Lymphocytes # 0.6 10*3/uL (1.4-4.0); Lymphocytes % 5.1 % (21.3-54.2); Mean Corpuscular HGB Conc 31.1 GM/DL (32-36); Mean Corpuscular Volume 91.2 FL (87-102); Mean Platelet Volume 12.7 FL (9.6-12.0); Monocytes % 6.2 % (1.7-12.7); NRBC # 0.09 10*3/uL; Neutrophils % 77.5 % (38.7-73.9); Platelet Count 102 T/CUMM (130-400); Red Cell Distribution Width 17.2 % (9.3-17.3); White Blood Count 12.5 T/CUMM (4-12)
[2019-08-14 08:25] LABS: Band Neutrophils 6 % (0-10); Eosinophils 1 % (0-10); Giant Platelets Few; Hypochromasia 2+; Lymphocytes 6 % (20-55); Platelet Estimate Decreased; Segmented Neutrophils 81 % (50-85); Total Cells Counted 100
[2019-08-14] MEDS: GABAPENTIN 300 MG CAPSULE PO SCH ×2 (08:52→20:52)
[2019-08-14] MEDS: PANTOPRAZOLE 40 MG VIAL IV SCH ×2 (08:53→20:52)
[2019-08-14] MEDS: DOCUSATE SODIUM 100 MG CAPSULE PO SCH ×2 (08:53→20:55)
[2019-08-14] MEDS: SUCROFERRIC OXYHYDROXIDE 1500 MG PO SCH ×3 (08:53→17:30)
[2019-08-14] MEDS: POTASSIUM CHLORIDE 10 MEQ TABLET PO SCH (08:53)
[2019-08-14] MEDS: LACTULOSE 20 GM/30 ML UDCUP PO SCH ×2 (08:53→20:55)
[2019-08-14] MEDS: ROSUVASTATIN 20 MG TABLET PO SCH (08:53)
[2019-08-14 13:04] LABS: Hemoglobin 7.2 GM/DL (12.0-16.0)
[2019-08-14] MEDS ORDERED: SODIUM CHLORIDE 0.9% 1,000 ML IV PRN ×2 (14:07→14:47)
[2019-08-14] MEDS: TRACE ELEMENTS (5) 1 ML, MULTIVITAMIN INJ 10 ML in AMINO ACIDS/DEXT/LYTES 4.25-5% 2,000 ML IV SCH (17:30)
[2019-08-15] MEDS: INSULIN REGULAR 100 UNIT/ML SUBCUT SCH ×5 (00:18→23:43)
[2019-08-15] MEDS: LEVOTHYROXINE 100 MCG VIAL IV SCH (05:45)
[2019-08-15 06:22] LABS: Calcium 7.9 MG/DL (8.5-10.1); Osmolality,Calculated 273.6 MOS/KG (273-304)
[2019-08-15] MEDS: SODIUM CHLORIDE 0.9% 1,000 ML IV SCH (07:54)
[2019-08-15] MEDS: ROSUVASTATIN 20 MG TABLET PO SCH (08:21)
[2019-08-15] MEDS: GABAPENTIN 300 MG CAPSULE PO SCH ×2 (08:21→20:40)
[2019-08-15] MEDS: POTASSIUM CHLORIDE 10 MEQ TABLET PO SCH (08:21)
[2019-08-15] MEDS: LACTULOSE 20 GM/30 ML UDCUP PO SCH ×2 (08:21→20:40)
[2019-08-15] MEDS: PANTOPRAZOLE 40 MG VIAL IV SCH ×2 (08:21→20:40)
[2019-08-15] MEDS: DOCUSATE SODIUM 100 MG CAPSULE PO SCH ×2 (08:22→20:40)
[2019-08-15] MEDS: SUCROFERRIC OXYHYDROXIDE 1500 MG PO SCH ×3 (08:22→16:03)
[2019-08-15] MEDS ORDERED: fentaNYL 12 MCG/HR PATCH TRANSDERM SCH (09:00)
[2019-08-15 10:37] LABS: Hematocrit 22.8 VOL% (35.7-47.0); Hemoglobin 7.1 GM/DL (12.0-16.0)
[2019-08-15 11:17] LABS: INR 0.9
[2019-08-15] MEDS ORDERED: LIDOCAINE 1% 20 ML VIAL MISC INJ ONE (12:00)
[2019-08-15] MEDS: TRACE ELEMENTS (5) 1 ML, MULTIVITAMIN INJ 10 ML in AMINO ACIDS/DEXT/LYTES 4.25-5% 2,000 ML IV SCH (17:18)
[2019-08-16 05:33] LABS: Calcium 8.1 MG/DL (8.5-10.1); Osmolality,Calculated 271.9 MOS/KG (273-304)
[2019-08-16 05:39] LABS: Basophils # 0.1 10*3/uL (0.0-0.2); Basophils % 0.6 % (0.0-0.8); Eosinophils # 0.2 10*3/uL (0.0-0.87); Eosinophils % 1.8 % (0.00-10.9); Hematocrit 26.6 VOL% (35.7-47.0); Immature Granulocytes % 8.1 %; Immature Granulocytes Absolute 0.92 #; Lymphocytes # 0.6 10*3/uL (1.4-4.0); Lymphocytes % 5.5 % (21.3-54.2); Mean Corpuscular HGB Conc 32.3 GM/DL (32-36); Mean Corpuscular Volume 91.1 FL (87-102); Mean Platelet Volume 12.5 FL (9.6-12.0); Monocytes % 9.2 % (1.7-12.7); NRBC # 0.07 10*3/uL; Neutrophils % 74.8 % (38.7-73.9); Red Blood Count 2.92 MC/CUMM (3.8-5.5); Red Cell Distribution Width 17.3 % (9.3-17.3); White Blood Count 11.4 T/CUMM (4-12)
[2019-08-16 05:41] LABS: Hemoglobin 8.6 GM/DL (12.0-16.0); Platelet Count 170 T/CUMM (130-400)
[2019-08-16] MEDS: INSULIN REGULAR 100 UNIT/ML SUBCUT SCH ×3 (05:41→17:24)
[2019-08-16] MEDS: LEVOTHYROXINE 100 MCG VIAL IV SCH (05:41)
[2019-08-16] MEDS ORDERED: LIDOCAINE 1% 20 ML VIAL MISC INJ ONE (06:00)
[2019-08-16 06:15] LABS: Eosinophils 5 % (0-10); Hypochromasia 1+; Lymphocytes 5 % (20-55); Nucleated Red Blood Cells 1 (0-5); Platelet Estimate Adequate; Segmented Neutrophils 81 % (50-85); Total Cells Counted 100
[2019-08-16] MEDS: SUCROFERRIC OXYHYDROXIDE 1500 MG PO SCH ×3 (09:27→16:00)
[2019-08-16] MEDS: LACTULOSE 20 GM/30 ML UDCUP PO SCH ×2 (09:27→21:20)
[2019-08-16] MEDS: DOCUSATE SODIUM 100 MG CAPSULE PO SCH ×2 (09:28→21:20)
[2019-08-16] MEDS ORDERED: propofoL 200 MG/20 ML VIAL IV ONE (09:30)
[2019-08-16] MEDS ORDERED: ETOMIDATE 20 MG/10 ML VIAL IV ONE (09:30)
[2019-08-16] MEDS ORDERED: LIDOCAINE 2% 5 ML VIAL ONE (09:30)
[2019-08-16] MEDS: SODIUM CHLORIDE 0.9% 1,000 ML IV SCH (12:31)
[2019-08-16] MEDS ORDERED: fentaNYL 25 MCG/HR PATCH TRANSDERM SCH (13:30)
[2019-08-16] MEDS: GABAPENTIN 300 MG CAPSULE PO SCH ×3 (14:10→21:21)
[2019-08-16] MEDS: ROSUVASTATIN 20 MG TABLET PO SCH (14:11)
[2019-08-16] MEDS: PANTOPRAZOLE 40 MG VIAL IV SCH ×2 (14:12→21:16)
[2019-08-16] MEDS: POTASSIUM CHLORIDE 10 MEQ TABLET PO SCH (14:14)
[2019-08-17] MEDS: INSULIN REGULAR 100 UNIT/ML SUBCUT SCH ×4 (00:10→19:04)
[2019-08-17] MEDS ORDERED: LIDOCAINE 1% 20 ML VIAL MISC INJ ONE (06:00)
[2019-08-17 06:19] LABS: Basophils # 0.1 10*3/uL (0.0-0.2); Basophils % 0.7 % (0.0-0.8); Eosinophils # 0.2 10*3/uL (0.0-0.87); Eosinophils % 1.6 % (0.00-10.9); Hematocrit 28.4 VOL% (35.7-47.0); Hemoglobin 8.9 GM/DL (12.0-16.0); Immature Granulocytes % 7.7 %; Immature Granulocytes Absolute 0.83 #; Lymphocytes # 0.7 10*3/uL (1.4-4.0); Lymphocytes % 6.6 % (21.3-54.2); Mean Corpuscular HGB Conc 31.3 GM/DL (32-36); Mean Corpuscular Volume 92.8 FL (87-102); Mean Platelet Volume 12.5 FL (9.6-12.0); Monocytes % 9.3 % (1.7-12.7); NRBC # 0.11 10*3/uL; Neutrophils % 74.1 % (38.7-73.9); Platelet Count 242 T/CUMM (130-400); Red Blood Count 3.06 MC/CUMM (3.8-5.5); Red Cell Distribution Width 17.6 % (9.3-17.3); White Blood Count 10.8 T/CUMM (4-12)
[2019-08-17] MEDS ORDERED: LEVOTHYROXINE 200 MCG TABLET PO SCH (06:30)
[2019-08-17 06:41] LABS: Band Neutrophils 6 % (0-10); Lymphocytes 5 % (20-55); Metamyelocytes 2 %; Myelocytes 1 %; Segmented Neutrophils 75 % (50-85); Total Cells Counted 100
[2019-08-17 06:42] LABS: Anisocytosis 1+; Hypochromasia 1+; Microcytosis 1+; Ovalocytes Slight
[2019-08-17 06:43] LABS: Platelet Estimate Normal
[2019-08-17 06:49] LABS: Calcium 8.2 MG/DL (8.5-10.1); Free T4 (Free Thyroxine) 1.02 NG/DL (0.76-1.46); Osmolality,Calculated 268.2 MOS/KG (273-304)
[2019-08-17] MEDS ORDERED: SODIUM CHLORIDE 0.9% 500 ML IV ONE (07:51)
[2019-08-17] MEDS: PANTOPRAZOLE 40 MG VIAL IV SCH ×2 (08:29→20:47)
[2019-08-17 08:30] LABS: PT Patient Result 10.7 SECS (9.6-12.2)
[2019-08-17] MEDS: SODIUM CHLORIDE 0.9% 1,000 ML IV SCH (08:31)
[2019-08-17] MEDS: LACTULOSE 20 GM/30 ML UDCUP PO SCH ×2 (08:31→20:45)
[2019-08-17] MEDS: ROSUVASTATIN 20 MG TABLET PO SCH (08:31)
[2019-08-17] MEDS: DOCUSATE SODIUM 100 MG CAPSULE PO SCH ×2 (08:31→20:45)
[2019-08-17] MEDS: SUCROFERRIC OXYHYDROXIDE 1500 MG PO SCH ×3 (08:31→17:27)
[2019-08-17] MEDS: GABAPENTIN 300 MG CAPSULE PO SCH ×3 (08:31→20:46)
[2019-08-17] MEDS: POTASSIUM CHLORIDE 10 MEQ TABLET PO SCH (09:15)
[2019-08-17] MEDS ORDERED: ALBUMIN 25% 25 GM in PREMIX 1 EACH IV ONE (09:30)
[2019-08-17 09:33] LABS: Albumin 1.4 G/DL (3.4-5.0); Bilirubin,Direct 2.24 MG/DL (0.0-0.20); Bilirubin,Indirect 0.4 MG/DL (0.0-1.0); Bilirubin,Total 2.6 MG/DL (0.2-1.0); Total Protein 6.4 G/DL (6.4-8.3)
[2019-08-17] MEDS ORDERED: FAT EMULSION 20% 250 ML IV SCH (14:00)
[2019-08-17] MEDS: traMADol 50 MG TABLET PO PRN (15:15)
[2019-08-17] MEDS: MULTIVITAMIN INJ 10 ML in AMINO ACIDS/DEXT/LYTES 4.25-5% 2,000 ML IV SCH (17:22)
[2019-08-18] MEDS: traMADol 50 MG TABLET PO PRN (00:05)
[2019-08-18] MEDS: INSULIN REGULAR 100 UNIT/ML SUBCUT SCH ×4 (00:06→18:16)
[2019-08-18] MEDS: LEVOTHYROXINE 25 MCG TABLET PO SCH (05:37)
[2019-08-18] MEDS: LEVOTHYROXINE 200 MCG TABLET PO SCH (05:38)
[2019-08-18 05:58] LABS: Calcium 7.9 MG/DL (8.5-10.1); Osmolality,Calculated 268.9 MOS/KG (273-304)
[2019-08-18 06:02] LABS: Prealbumin 32.2 MG/DL (20-40)
[2019-08-18] MEDS: PANTOPRAZOLE 40 MG VIAL IV SCH ×2 (08:34→22:37)
[2019-08-18] MEDS: SUCROFERRIC OXYHYDROXIDE 1500 MG PO SCH ×3 (08:35→17:04)
[2019-08-18] MEDS: ROSUVASTATIN 20 MG TABLET PO SCH (08:35)
[2019-08-18] MEDS: GABAPENTIN 300 MG CAPSULE PO SCH ×3 (08:35→22:37)
[2019-08-18] MEDS: SODIUM CHLORIDE 0.9% 1,000 ML IV SCH (08:35)
[2019-08-18] MEDS: POTASSIUM CHLORIDE 10 MEQ TABLET PO SCH (08:36)
[2019-08-18] MEDS: LACTULOSE 20 GM/30 ML UDCUP PO SCH ×2 (08:36→22:36)
[2019-08-18] MEDS: DOCUSATE SODIUM 100 MG CAPSULE PO SCH ×2 (08:36→22:37)
[2019-08-18 09:38] LABS: Basophils # 0.1 10*3/uL (0.0-0.2); Basophils % 0.8 % (0.0-0.8); Eosinophils # 0.2 10*3/uL (0.0-0.87); Eosinophils % 1.9 % (0.00-10.9); Hematocrit 26.2 VOL% (35.7-47.0); Immature Granulocytes % 4.8 %; Immature Granulocytes Absolute 0.54 #; Lymphocytes # 0.6 10*3/uL (1.4-4.0); Lymphocytes % 5.5 % (21.3-54.2); Mean Corpuscular HGB Conc 30.5 GM/DL (32-36); Mean Corpuscular Volume 94.6 FL (87-102); Mean Platelet Volume 11.6 FL (9.6-12.0); Monocytes % 8.5 % (1.7-12.7); NRBC # 0.06 10*3/uL; Neutrophils % 78.5 % (38.7-73.9); Platelet Count 278 T/CUMM (130-400); Red Blood Count 2.77 MC/CUMM (3.8-5.5); Red Cell Distribution Width 17.9 % (9.3-17.3); White Blood Count 11.2 T/CUMM (4-12)
[2019-08-18 10:10] LABS: Band Neutrophils 4 % (0-10); Eosinophils 1 % (0-10); Lymphocytes 3 % (20-55); Platelet Estimate Adequate; Segmented Neutrophils 83 % (50-85); Total Cells Counted 100
[2019-08-18 10:11] LABS: Hypochromasia 1+; Microcytosis 1+
[2019-08-18] MEDS: MULTIVITAMIN INJ 10 ML in AMINO ACIDS/DEXT/LYTES 4.25-5% 2,000 ML IV SCH (16:55)
[2019-08-19] MEDS: INSULIN REGULAR 100 UNIT/ML SUBCUT SCH ×4 (01:01→18:51)
[2019-08-19] MEDS: LEVOTHYROXINE 25 MCG TABLET PO SCH (05:54)
[2019-08-19] MEDS: LEVOTHYROXINE 200 MCG TABLET PO SCH (05:54)
[2019-08-19 06:41] LABS: Basophils # 0.1 10*3/uL (0.0-0.2); Basophils % 0.7 % (0.0-0.8); Eosinophils # 0.3 10*3/uL (0.0-0.87); Eosinophils % 2.2 % (0.00-10.9); Hematocrit 27.4 VOL% (35.7-47.0); Hemoglobin 8.2 GM/DL (12.0-16.0); Immature Granulocytes % 4.1 %; Immature Granulocytes Absolute 0.51 #; Lymphocytes # 0.6 10*3/uL (1.4-4.0); Lymphocytes % 4.9 % (21.3-54.2); Mean Corpuscular HGB Conc 29.9 GM/DL (32-36); Mean Corpuscular Volume 96.1 FL (87-102); Mean Platelet Volume 12.2 FL (9.6-12.0); Monocytes % 5.8 % (1.7-12.7); NRBC # 0.08 10*3/uL; Neutrophils % 82.3 % (38.7-73.9); Platelet Count 300 T/CUMM (130-400); Red Blood Count 2.85 MC/CUMM (3.8-5.5); Red Cell Distribution Width 17.7 % (9.3-17.3); White Blood Count 12.3 T/CUMM (4-12)
[2019-08-19 06:54] LABS: Calcium 8.5 MG/DL (8.5-10.1); Osmolality,Calculated 268.2 MOS/KG (273-304)
[2019-08-19 07:02] LABS: Band Neutrophils 12 % (0-10); Eosinophils 2 % (0-10); Lymphocytes 3 % (20-55); Nucleated Red Blood Cells 2 (0-5); Platelet Estimate Normal; Segmented Neutrophils 73 % (50-85); Total Cells Counted 100
[2019-08-19 07:03] LABS: Anisocytosis Slight
[2019-08-19 07:04] LABS: Hypochromasia Slight
[2019-08-19] MEDS ORDERED: ASPIRIN 300 MG SUPP RECTAL ONE (07:30)
[2019-08-19 08:00] LABS: ABG Base Excess 0.4 MMOL/L (-2.5-2.5); ABG HCO3 24.7 MMOL/L (20-26); ABG Oxygen Saturation 96.6 % (95-100); ABG PCO2 62.6 MM HG (35-48); ABG PH 7.263 (7.35-7.45); ABG PO2 86.5 MM HG (80-95); ABG TCO2 26.7 MMOL/L (23-27)
[2019-08-19] MEDS ORDERED: SODIUM CHLORIDE 0.9% 1,000 ML IV SCH (08:30)
[2019-08-19] MEDS: SUCROFERRIC OXYHYDROXIDE 1500 MG PO SCH ×3 (08:33→16:32)
[2019-08-19] MEDS: ROSUVASTATIN 20 MG TABLET PO SCH (08:33)
[2019-08-19] MEDS: LACTULOSE 20 GM/30 ML UDCUP PO SCH ×2 (08:33→22:46)
[2019-08-19] MEDS: DOCUSATE SODIUM 100 MG CAPSULE PO SCH ×2 (08:33→22:46)
[2019-08-19] MEDS: POTASSIUM CHLORIDE 10 MEQ TABLET PO SCH (08:33)
[2019-08-19] MEDS: PANTOPRAZOLE 40 MG VIAL IV SCH ×2 (08:33→22:51)
[2019-08-19] MEDS: SODIUM CHLORIDE 0.9% 1,000 ML IV SCH (08:34)
[2019-08-19 08:50] LABS: Basophils # 0.1 10*3/uL (0.0-0.2); Basophils % 0.7 % (0.0-0.8); Eosinophils # 0.3 10*3/uL (0.0-0.87); Eosinophils % 2.1 % (0.00-10.9); Hematocrit 31.6 VOL% (35.7-47.0); Hemoglobin 9.2 GM/DL (12.0-16.0); Immature Granulocytes % 3.3 %; Immature Granulocytes Absolute 0.43 #; Lymphocytes # 0.7 10*3/uL (1.4-4.0); Lymphocytes % 5.2 % (21.3-54.2); Mean Corpuscular HGB Conc 29.1 GM/DL (32-36); Mean Corpuscular Volume 98.8 FL (87-102); Mean Platelet Volume 11.8 FL (9.6-12.0); Monocytes % 6.4 % (1.7-12.7); NRBC # 0.09 10*3/uL; Neutrophils % 82.3 % (38.7-73.9); Platelet Count 322 T/CUMM (130-400); Red Cell Distribution Width 17.7 % (9.3-17.3)
[2019-08-19] MEDS: cefTRIAXone 1,000 MG in SYRINGE 1 EACH IV SCH (08:50)
[2019-08-19 08:55] LABS: PT Patient Result 10.7 SECS (9.6-12.2); Partial Thromboplastin Time 31.5 SECS (20.8-36.0)
[2019-08-19 09:09] LABS: Band Neutrophils 2 % (0-10); Hypochromasia 1+; Lymphocytes 5 % (20-55); Microcytosis Slight; Nucleated Red Blood Cells 1 (0-5); Platelet Estimate Adequate; Segmented Neutrophils 84 % (50-85); Total Cells Counted 100
[2019-08-19 09:10] LABS: Albumin 1.3 G/DL (3.4-5.0); Bilirubin,Total 0.9 MG/DL (0.2-1.0); Calcium 8.6 MG/DL (8.5-10.1); Osmolality,Calculated 264.5 MOS/KG (273-304); Total Protein 7.6 G/DL (6.4-8.3)
[2019-08-19 09:22] LABS: Albumin 1.5 G/DL (3.4-5.0); Bilirubin,Direct 0.56 MG/DL (0.0-0.20); Bilirubin,Indirect 0.9 MG/DL (0.0-1.0); Bilirubin,Total 1.5 MG/DL (0.2-1.0); Total Protein 7.6 G/DL (6.4-8.3)
[2019-08-19] MEDS ORDERED: TUBERCULIN SKIN TEST 0.1 ML SYRINGE INTRADERM ONE (11:15)
[2019-08-19] MEDS: AZITHROMYCIN INJ 500 MG in SODIUM CHLORIDE 0.9% 250 ML IV SCH (16:26)
[2019-08-19] MEDS: MULTIVITAMIN INJ 10 ML in AMINO ACIDS/DEXT/LYTES 4.25-5% 2,000 ML IV SCH (16:27)
[2019-08-19 16:41] LABS: ABG HCO3 26.1 MMOL/L (20-26); ABG Oxygen Saturation 95.5 % (95-100); ABG PCO2 50.3 MM HG (35-48); ABG PH 7.353 (7.35-7.45); ABG PO2 72.3 MM HG (80-95); ABG TCO2 26.3 MMOL/L (23-27)
[2019-08-19] MEDS: ALBUTEROL/IPRATROPIUM 3 ML NEB RESP TX SCH (19:25)
[2019-08-19] MEDS: ACETAMINOPHEN 650 MG SUPP RECTAL PRN (21:59)
[2019-08-20] MEDS: ALBUTEROL/IPRATROPIUM 3 ML NEB RESP TX SCH ×4 (00:06→20:09)
[2019-08-20] MEDS: INSULIN REGULAR 100 UNIT/ML SUBCUT SCH ×4 (01:10→18:41)
[2019-08-20 04:18] LABS: ABG Base Excess 0.4 MMOL/L (-2.5-2.5); ABG HCO3 24.7 MMOL/L (20-26); ABG Oxygen Saturation 93.7 % (95-100); ABG PCO2 54.9 MM HG (35-48); ABG PH 7.303 (7.35-7.45); ABG PO2 68.1 MM HG (80-95); ABG TCO2 25.9 MMOL/L (23-27); Allen Test Positive; Pt O2 Delivery Device BIPAP
[2019-08-20 05:26] LABS: Basophils # 0.1 10*3/uL (0.0-0.2); Basophils % 0.7 % (0.0-0.8); Eosinophils # 0.2 10*3/uL (0.0-0.87); Eosinophils % 1.8 % (0.00-10.9); Hematocrit 29.7 VOL% (35.7-47.0); Hemoglobin 8.6 GM/DL (12.0-16.0); Immature Granulocytes % 3.8 %; Immature Granulocytes Absolute 0.48 #; Lymphocytes # 0.7 10*3/uL (1.4-4.0); Lymphocytes % 5.6 % (21.3-54.2); Mean Platelet Volume 11.9 FL (9.6-12.0); Monocytes % 7.5 % (1.7-12.7); NRBC # 0.07 10*3/uL; Neutrophils % 80.6 % (38.7-73.9); Platelet Count 334 T/CUMM (130-400); Red Cell Distribution Width 17.6 % (9.3-17.3); White Blood Count 12.6 T/CUMM (4-12)
[2019-08-20 05:56] LABS: Albumin 1.8 G/DL (3.4-5.0); Bilirubin,Total 0.9 MG/DL (0.2-1.0); Calcium 8.6 MG/DL (8.5-10.1); Osmolality,Calculated 270.7 MOS/KG (273-304); Total Protein 8.1 G/DL (6.4-8.3)
[2019-08-20] MEDS: ACETAMINOPHEN 650 MG SUPP RECTAL PRN (06:35)
[2019-08-20] MEDS: LEVOTHYROXINE 25 MCG TABLET PO SCH (06:36)
[2019-08-20] MEDS: LEVOTHYROXINE 200 MCG TABLET PO SCH (06:36)
[2019-08-20 07:51] LABS: Band Neutrophils 4 % (0-10); Lymphocytes 2 % (20-55); Metamyelocytes 3 %; Myelocytes 1 %; Platelet Estimate Normal; Polychromasia Few; Segmented Neutrophils 83 % (50-85); Stomatocytes Few; Total Cells Counted 100
[2019-08-20 07:52] LABS: Hypochromasia Slight; Spherocytes Few
[2019-08-20] MEDS: DOCUSATE SODIUM 100 MG CAPSULE PO SCH ×2 (09:39→22:41)
[2019-08-20] MEDS: ROSUVASTATIN 20 MG TABLET PO SCH (09:39)
[2019-08-20] MEDS: LACTULOSE 20 GM/30 ML UDCUP PO SCH ×2 (09:39→22:41)
[2019-08-20] MEDS: SUCROFERRIC OXYHYDROXIDE 1500 MG PO SCH ×3 (11:04→16:50)
[2019-08-20] MEDS: cefTRIAXone 1,000 MG in SYRINGE 1 EACH IV SCH (11:05)
[2019-08-20] MEDS: PANTOPRAZOLE 40 MG VIAL IV SCH (11:12)
[2019-08-20] MEDS: LINEZOLID INJ 600 MG in PREMIX 1 EACH IV SCH (14:45)
[2019-08-20] MEDS: AZITHROMYCIN INJ 500 MG in SODIUM CHLORIDE 0.9% 250 ML IV SCH (16:26)
[2019-08-20] MEDS: MULTIVITAMIN INJ 10 ML in AMINO ACIDS/DEXT/LYTES 4.25-5% 2,000 ML IV SCH (19:56)
[2019-08-20] MEDS: PANTOPRAZOLE 40 MG TABLET PO SCH (22:41)
[2019-08-21] MEDS: ALBUTEROL/IPRATROPIUM 3 ML NEB RESP TX SCH ×4 (00:14→20:06)
[2019-08-21] MEDS: ACETAMINOPHEN 650 MG SUPP RECTAL PRN (01:35)
[2019-08-21] MEDS: INSULIN REGULAR 100 UNIT/ML SUBCUT SCH ×4 (02:15→18:16)
[2019-08-21] MEDS: LINEZOLID INJ 600 MG in PREMIX 1 EACH IV SCH (03:44)
[2019-08-21] MEDS: LEVOTHYROXINE 25 MCG TABLET PO SCH (05:54)
[2019-08-21] MEDS: LEVOTHYROXINE 200 MCG TABLET PO SCH (05:54)
[2019-08-21 06:21] LABS: Basophils # 0.1 10*3/uL (0.0-0.2); Basophils % 0.5 % (0.0-0.8); Eosinophils # 0.3 10*3/uL (0.0-0.87); Eosinophils % 1.7 % (0.00-10.9); Hematocrit 23.9 VOL% (35.7-47.0); Hemoglobin 6.9 GM/DL (12.0-16.0); Immature Granulocytes % 4.5 %; Immature Granulocytes Absolute 0.67 #; Lymphocytes # 0.9 10*3/uL (1.4-4.0); Lymphocytes % 5.7 % (21.3-54.2); Mean Corpuscular HGB Conc 28.9 GM/DL (32-36); Mean Platelet Volume 11.7 FL (9.6-12.0); Monocytes % 6.8 % (1.7-12.7); NRBC # 0.08 10*3/uL; Neutrophils % 80.8 % (38.7-73.9); Platelet Count 299 T/CUMM (130-400); Red Blood Count 2.39 MC/CUMM (3.8-5.5); Red Cell Distribution Width 17.4 % (9.3-17.3)
[2019-08-21 06:42] LABS: Calcium 8.2 MG/DL (8.5-10.1); Osmolality,Calculated 273.1 MOS/KG (273-304)
[2019-08-21] MEDS: SUCROFERRIC OXYHYDROXIDE 1500 MG PO SCH ×3 (07:41→17:40)
[2019-08-21] MEDS: ROSUVASTATIN 20 MG TABLET PO SCH (08:55)
[2019-08-21] MEDS: DOCUSATE SODIUM 100 MG CAPSULE PO SCH ×2 (08:55→21:20)
[2019-08-21] MEDS: PANTOPRAZOLE 40 MG TABLET PO SCH ×2 (08:55→21:20)
[2019-08-21] MEDS: LACTULOSE 20 GM/30 ML UDCUP PO SCH ×2 (08:55→09:02)
[2019-08-21] MEDS: cefTRIAXone 1,000 MG in SYRINGE 1 EACH IV SCH (08:56)
[2019-08-21 09:41] LABS: Anisocytosis 1+; Band Neutrophils 6 % (0-10); Eosinophils 2 % (0-10); Hypochromasia 2+; Lymphocytes 3 % (20-55); Metamyelocytes 1 %; Myelocytes 1 %; Nucleated Red Blood Cells 2 (0-5); Platelet Estimate Normal; Polychromasia Slight; Segmented Neutrophils 82 % (50-85); Total Cells Counted 100
[2019-08-21 13:35] LABS: ABG Base Excess -3.4 MMOL/L (-2.5-2.5); ABG HCO3 21.5 MMOL/L (20-26); ABG Oxygen Saturation 95.6 % (95-100); ABG PH 7.303 (7.35-7.45); ABG PO2 76.4 MM HG (80-95); ABG TCO2 21.8 MMOL/L (23-27)
[2019-08-21] MEDS: PIPERACILLIN/TAZOBACTAM 3,375 MG in SODIUM CHLORIDE 0.9% 100 ML IV SCH (16:28)
[2019-08-21] MEDS: MULTIVITAMIN INJ 10 ML in AMINO ACIDS/DEXT/LYTES 4.25-5% 2,000 ML IV SCH (18:15)
[2019-08-21] MEDS ORDERED: VANCOMYCIN INJ 2,000 MG in SODIUM CHLORIDE 0.9% 500 ML IV ONE (21:00)
[2019-08-22] MEDS: ALBUTEROL/IPRATROPIUM 3 ML NEB RESP TX SCH ×4 (00:58→19:15)
[2019-08-22] MEDS: INSULIN REGULAR 100 UNIT/ML SUBCUT SCH ×4 (02:24→18:01)
[2019-08-22] MEDS: PIPERACILLIN/TAZOBACTAM 3,375 MG in SODIUM CHLORIDE 0.9% 100 ML IV SCH ×2 (04:32→17:54)
[2019-08-22] MEDS: LEVOTHYROXINE 200 MCG TABLET PO SCH (06:25)
[2019-08-22] MEDS: LEVOTHYROXINE 25 MCG TABLET PO SCH (06:25)
[2019-08-22 07:34] LABS: Albumin 1.3 G/DL (3.4-5.0); Bilirubin,Direct 0.36 MG/DL (0.0-0.20); Bilirubin,Indirect 0.4 MG/DL (0.0-1.0); Bilirubin,Total 0.8 MG/DL (0.2-1.0); Total Protein 6.9 G/DL (6.4-8.3)
[2019-08-22] MEDS ORDERED: SODIUM CHLORIDE 0.9% 1,000 ML IV PRN (08:08)
[2019-08-22] MEDS: DOCUSATE SODIUM 100 MG CAPSULE PO SCH ×2 (08:56→22:19)
[2019-08-22] MEDS: SUCROFERRIC OXYHYDROXIDE 1500 MG PO SCH ×3 (10:20→17:03)
[2019-08-22] MEDS: ROSUVASTATIN 20 MG TABLET PO SCH (10:24)
[2019-08-22] MEDS: PANTOPRAZOLE 40 MG TABLET PO SCH ×2 (10:25→22:19)
[2019-08-22] MEDS ORDERED: VANCOMYCIN INJ 1,000 MG in SODIUM CHLORIDE 0.9% 250 ML IV PRN (12:19)
[2019-08-22] MEDS ORDERED: fentaNYL 100 MCG/2 ML VIAL IV ONE (12:42)
[2019-08-22] MEDS ORDERED: MIDAZOLAM 2 MG/2 ML VIAL IV ONE (12:42)
[2019-08-22] MEDS ORDERED: ONDANSETRON 4 MG/2 ML VIAL ONE (14:23)
[2019-08-22] MEDS: ONDANSETRON 4 MG/2 ML VIAL IV PRN (14:25)
[2019-08-22] MEDS: ACETAMINOPHEN 325 MG TABLET PO PRN (15:25)
[2019-08-22] MEDS: GABAPENTIN 100 MG CAPSULE PO SCH ×2 (15:25→22:19)
[2019-08-22] MEDS: MULTIVITAMIN INJ 10 ML in AMINO ACIDS/DEXT/LYTES 4.25-5% 2,000 ML IV SCH (17:54)
[2019-08-22] MEDS ORDERED: GABAPENTIN 100 MG CAPSULE PO SCH (21:00)
[2019-08-22] MEDS ORDERED: VANCOMYCIN INJ 1,000 MG in SODIUM CHLORIDE 0.9% 250 ML IV ONE (21:00)
[2019-08-23] MEDS: INSULIN REGULAR 100 UNIT/ML SUBCUT SCH ×4 (00:26→17:26)
[2019-08-23] MEDS: ALBUTEROL/IPRATROPIUM 3 ML NEB RESP TX SCH ×4 (01:16→19:23)
[2019-08-23] MEDS: LEVOTHYROXINE 200 MCG TABLET PO SCH (05:52)
[2019-08-23] MEDS: LEVOTHYROXINE 25 MCG TABLET PO SCH (05:52)
[2019-08-23 08:25] LABS: Basophils # 0.1 10*3/uL (0.0-0.2); Basophils % 0.8 % (0.0-0.8); Eosinophils # 0.2 10*3/uL (0.0-0.87); Eosinophils % 1.6 % (0.00-10.9); Hematocrit 25.1 VOL% (35.7-47.0); Hemoglobin 7.9 GM/DL (12.0-16.0); Immature Granulocytes % 3.4 %; Immature Granulocytes Absolute 0.44 #; Lymphocytes # 0.5 10*3/uL (1.4-4.0); Lymphocytes % 4.1 % (21.3-54.2); Mean Corpuscular HGB Conc 31.5 GM/DL (32-36); Mean Corpuscular Volume 90.9 FL (87-102); Mean Platelet Volume 11.8 FL (9.6-12.0); Monocytes % 5.2 % (1.7-12.7); NRBC # 0.08 10*3/uL; Neutrophils % 84.9 % (38.7-73.9); Platelet Count 267 T/CUMM (130-400); Red Blood Count 2.76 MC/CUMM (3.8-5.5); Red Cell Distribution Width 16.9 % (9.3-17.3); White Blood Count 13.1 T/CUMM (4-12)
[2019-08-23] MEDS: SUCROFERRIC OXYHYDROXIDE 1500 MG PO SCH ×3 (08:46→17:03)
[2019-08-23] MEDS: GABAPENTIN 100 MG CAPSULE PO SCH ×3 (08:46→21:04)
[2019-08-23] MEDS: ROSUVASTATIN 20 MG TABLET PO SCH (08:46)
[2019-08-23 08:47] LABS: Calcium 7.9 MG/DL (8.5-10.1); Osmolality,Calculated 275.7 MOS/KG (273-304)
[2019-08-23] MEDS: DOCUSATE SODIUM 100 MG CAPSULE PO SCH ×2 (08:47→21:04)
[2019-08-23] MEDS: PANTOPRAZOLE 40 MG TABLET PO SCH ×2 (08:47→21:04)
[2019-08-23 09:02] LABS: Prealbumin 11.9 MG/DL (20-40)
[2019-08-23] MEDS: PIPERACILLIN/TAZOBACTAM 3,375 MG in SODIUM CHLORIDE 0.9% 100 ML IV SCH ×2 (09:40→15:43)
[2019-08-23 10:46] LABS: Band Neutrophils 8 % (0-10); Eosinophils 1 % (0-10); Hypochromasia 1+; Lymphocytes 5 % (20-55); Myelocytes 1 %; Nucleated Red Blood Cells 1 (0-5); Segmented Neutrophils 82 % (50-85); Total Cells Counted 100
[2019-08-23 10:47] LABS: Anisocytosis 1+; Microcytosis 1+; Platelet Estimate Normal
[2019-08-23] MEDS: predniSONE 20 MG TABLET PO SCH (15:42)
[2019-08-23] MEDS: MULTIVITAMIN INJ 10 ML in AMINO ACIDS/DEXT/LYTES 4.25-5% 2,000 ML IV SCH (17:01)
[2019-08-23] MEDS: LACTOBACILLUS RHAMNOSUS GG CAPSULE PO SCH (21:04)
[2019-08-24] MEDS: ALBUTEROL/IPRATROPIUM 3 ML NEB RESP TX SCH ×4 (00:06→20:22)
[2019-08-24 00:26] LABS: CDT Result Negative (Negative); CDT Specimen Source STOOL
[2019-08-24] MEDS: INSULIN REGULAR 100 UNIT/ML SUBCUT SCH ×4 (01:43→17:49)
[2019-08-24] MEDS: PIPERACILLIN/TAZOBACTAM 3,375 MG in SODIUM CHLORIDE 0.9% 100 ML IV SCH ×2 (04:24→21:01)
[2019-08-24 05:59] LABS: Basophils # 0.1 10*3/uL (0.0-0.2); Basophils % 0.4 % (0.0-0.8); Eosinophils % 0.1 % (0.00-10.9); Hematocrit 26.5 VOL% (35.7-47.0); Immature Granulocytes % 4.9 %; Immature Granulocytes Absolute 0.72 #; Lymphocytes # 0.7 10*3/uL (1.4-4.0); Lymphocytes % 4.8 % (21.3-54.2); Mean Corpuscular HGB Conc 30.2 GM/DL (32-36); Mean Corpuscular Volume 94.6 FL (87-102); Mean Platelet Volume 11.1 FL (9.6-12.0); Monocytes % 4.2 % (1.7-12.7); NRBC # 0.05 10*3/uL; Neutrophils % 85.6 % (38.7-73.9); Platelet Count 288 T/CUMM (130-400); White Blood Count 14.8 T/CUMM (4-12)
[2019-08-24 06:20] LABS: Anisocytosis 1+; Band Neutrophils 5 % (0-10); Eosinophils 1 % (0-10); Hypochromasia 1+; Lymphocytes 6 % (20-55); Microcytosis 1+; Polychromasia Slight; Segmented Neutrophils 83 % (50-85); Total Cells Counted 100
[2019-08-24 06:21] LABS: Giant Platelets Few
[2019-08-24 06:28] LABS: Calcium 8.2 MG/DL (8.5-10.1); Osmolality,Calculated 277.2 MOS/KG (273-304)
[2019-08-24] MEDS: LEVOTHYROXINE 25 MCG TABLET PO SCH (06:49)
[2019-08-24] MEDS: LEVOTHYROXINE 200 MCG TABLET PO SCH (06:49)
[2019-08-24 07:10] LABS: Hepatitis B Core IgM Quant 0.09 Index; Hepatitis B Surface Ag Quant < 0.10 Index; Hepatitis B Surface Ag Result Negative (Negative); Hepatitis C Virus Ab Quant < 0.02 Index; Hepatitis C Virus Ab Result Negative (Negative)
[2019-08-24] MEDS ORDERED: ENOXAPARIN 40 MG/0.4 ML SYRINGE SUBCUT SCH (09:00)
[2019-08-24] MEDS ORDERED: BISACODYL 10 MG SUPP RECTAL ONE (09:24)
[2019-08-24] MEDS: DOCUSATE SODIUM 100 MG CAPSULE PO SCH ×3 (10:48→21:01)
[2019-08-24] MEDS: ROSUVASTATIN 20 MG TABLET PO SCH ×2 (10:48→11:27)
[2019-08-24] MEDS: SUCROFERRIC OXYHYDROXIDE 1500 MG PO SCH ×3 (10:48→17:21)
[2019-08-24] MEDS: LACTOBACILLUS RHAMNOSUS GG CAPSULE PO SCH ×3 (10:48→21:01)
[2019-08-24] MEDS: PANTOPRAZOLE 40 MG TABLET PO SCH ×3 (10:49→21:01)
[2019-08-24] MEDS: GABAPENTIN 100 MG CAPSULE PO SCH ×4 (10:49→21:01)
[2019-08-24] MEDS: predniSONE 20 MG TABLET PO SCH ×2 (10:49→11:28)
[2019-08-24] MEDS: HEPARIN 5,000 UNIT/1 ML VIAL SUBCUT SCH ×2 (11:28→21:01)
[2019-08-24] MEDS: SODIUM HYPOCHLORITE 0.25% IRRIG 473 ML BOTTLE TOP SCH (11:28)
[2019-08-24] MEDS ORDERED: VANCOMYCIN INJ 1,000 MG in SODIUM CHLORIDE 0.9% 250 ML IV ONE (17:00)
[2019-08-24] MEDS: MULTIVITAMIN INJ 10 ML in AMINO ACIDS/DEXT/LYTES 4.25-5% 2,000 ML IV SCH (17:12)
[2019-08-24] MEDS: ACETAMINOPHEN 325 MG TABLET PO PRN (17:19)
[2019-08-24 19:48] LABS: Cyclic Citrull Peptide Interp Negative
[2019-08-25] MEDS: INSULIN REGULAR 100 UNIT/ML SUBCUT SCH ×4 (00:44→18:29)
[2019-08-25] MEDS: ACETAMINOPHEN 325 MG TABLET PO PRN (00:48)
[2019-08-25] MEDS: ALBUTEROL/IPRATROPIUM 3 ML NEB RESP TX SCH ×4 (02:34→19:32)
[2019-08-25] MEDS: PIPERACILLIN/TAZOBACTAM 3,375 MG in SODIUM CHLORIDE 0.9% 100 ML IV SCH ×2 (04:32→17:45)
[2019-08-25 05:18] LABS: Basophils % 0.3 % (0.0-0.8); Eosinophils % 0.1 % (0.00-10.9); Hematocrit 23.5 VOL% (35.7-47.0); Hemoglobin 7.4 GM/DL (12.0-16.0); Immature Granulocytes % 5.9 %; Immature Granulocytes Absolute 0.79 #; Lymphocytes # 0.6 10*3/uL (1.4-4.0); Lymphocytes % 4.7 % (21.3-54.2); Mean Corpuscular HGB Conc 31.5 GM/DL (32-36); Mean Corpuscular Volume 92.5 FL (87-102); Mean Platelet Volume 11.2 FL (9.6-12.0); Monocytes % 6.3 % (1.7-12.7); NRBC # 0.02 10*3/uL; Neutrophils % 82.7 % (38.7-73.9); Platelet Count 285 T/CUMM (130-400); Red Blood Count 2.54 MC/CUMM (3.8-5.5); Red Cell Distribution Width 16.6 % (9.3-17.3); White Blood Count 13.3 T/CUMM (4-12)
[2019-08-25 05:41] LABS: Albumin 1.4 G/DL (3.4-5.0); Osmolality,Calculated 283.7 MOS/KG (273-304); Total Protein 6.8 G/DL (6.4-8.3)
[2019-08-25] MEDS: LEVOTHYROXINE 25 MCG TABLET PO SCH (05:49)
[2019-08-25] MEDS: LEVOTHYROXINE 200 MCG TABLET PO SCH (05:50)
[2019-08-25 06:04] LABS: Anisocytosis 1+; Band Neutrophils 6 % (0-10); Hypochromasia 1+; Lymphocytes 2 % (20-55); Metamyelocytes 2 %; Microcytosis 1+; Myelocytes 1 %; Platelet Estimate Normal; Polychromasia Slight; Segmented Neutrophils 88 % (50-85); Total Cells Counted 100
[2019-08-25] MEDS: SUCROFERRIC OXYHYDROXIDE 1500 MG PO SCH ×3 (09:55→17:46)
[2019-08-25] MEDS: GABAPENTIN 100 MG CAPSULE PO SCH ×3 (09:56→20:56)
[2019-08-25] MEDS: predniSONE 20 MG TABLET PO SCH (09:56)
[2019-08-25] MEDS: ROSUVASTATIN 20 MG TABLET PO SCH (09:56)
[2019-08-25] MEDS: PANTOPRAZOLE 40 MG TABLET PO SCH ×2 (09:56→20:57)
[2019-08-25] MEDS: HEPARIN 5,000 UNIT/1 ML VIAL SUBCUT SCH ×2 (09:56→20:57)
[2019-08-25] MEDS: LACTOBACILLUS RHAMNOSUS GG CAPSULE PO SCH ×2 (09:56→20:56)
[2019-08-25] MEDS: SODIUM HYPOCHLORITE 0.25% IRRIG 473 ML BOTTLE TOP SCH (09:56)
[2019-08-25] MEDS: DOCUSATE SODIUM 100 MG CAPSULE PO SCH ×2 (09:56→20:57)
[2019-08-25 11:31] LABS: Anti SS-A Antibodies < 16 EU/ML
[2019-08-25 12:38] LABS: RBC,Peritoneal Fluid 80150 T/CUMM
[2019-08-25 12:42] LABS: Neutrophils,Peritoneal Fluid 90 %
[2019-08-25] MEDS: LINEZOLID INJ 600 MG in PREMIX 1 EACH IV SCH (13:04)
[2019-08-25] MEDS: MULTIVITAMIN INJ 10 ML in AMINO ACIDS/DEXT/LYTES 4.25-5% 2,000 ML IV SCH (17:45)
[2019-08-25] MEDS ORDERED: SODIUM CHLORIDE 0.9% 1,000 ML IV PRN (18:12)
[2019-08-26] MEDS: ALBUTEROL/IPRATROPIUM 3 ML NEB RESP TX SCH ×3 (00:22→13:20)
[2019-08-26] MEDS: LINEZOLID INJ 600 MG in PREMIX 1 EACH IV SCH ×2 (00:31→14:19)
[2019-08-26] MEDS: INSULIN REGULAR 100 UNIT/ML SUBCUT SCH ×4 (00:31→18:56)
[2019-08-26] MEDS: PIPERACILLIN/TAZOBACTAM 3,375 MG in SODIUM CHLORIDE 0.9% 100 ML IV SCH ×2 (04:55→17:16)
[2019-08-26] MEDS: LEVOTHYROXINE 25 MCG TABLET PO SCH (05:53)
[2019-08-26] MEDS: LEVOTHYROXINE 200 MCG TABLET PO SCH (05:53)
[2019-08-26 06:19] LABS: Basophils % 0.2 % (0.0-0.8); Eosinophils % 0.2 % (0.00-10.9); Hematocrit 24.2 VOL% (35.7-47.0); Hemoglobin 7.5 GM/DL (12.0-16.0); Immature Granulocytes % 7.3 %; Immature Granulocytes Absolute 0.94 #; Lymphocytes # 0.6 10*3/uL (1.4-4.0); Lymphocytes % 4.7 % (21.3-54.2); Mean Corpuscular Volume 93.8 FL (87-102); Mean Platelet Volume 11.1 FL (9.6-12.0); Monocytes % 6.9 % (1.7-12.7); NRBC # 0.02 10*3/uL; Neutrophils % 80.7 % (38.7-73.9); Platelet Count 304 T/CUMM (130-400); Red Blood Count 2.58 MC/CUMM (3.8-5.5); Red Cell Distribution Width 16.5 % (9.3-17.3); White Blood Count 12.8 T/CUMM (4-12)
[2019-08-26 06:45] LABS: Calcium 7.6 MG/DL (8.5-10.1); Osmolality,Calculated 290.1 MOS/KG (273-304); Prealbumin 18.7 MG/DL (20-40)
[2019-08-26 07:19] LABS: Anisocytosis 1+; Hypochromasia 2+; Lymphocytes 4 % (20-55); Macrocytosis 1+; Platelet Estimate Normal; Segmented Neutrophils 89 % (50-85); Total Cells Counted 100
[2019-08-26] MEDS: SUCROFERRIC OXYHYDROXIDE 1500 MG PO SCH ×3 (08:10→17:17)
[2019-08-26] MEDS: SODIUM HYPOCHLORITE 0.25% IRRIG 473 ML BOTTLE TOP SCH (08:38)
[2019-08-26] MEDS: GABAPENTIN 100 MG CAPSULE PO SCH ×2 (08:38→17:16)
[2019-08-26] MEDS: predniSONE 20 MG TABLET PO SCH (08:38)
[2019-08-26] MEDS: ROSUVASTATIN 20 MG TABLET PO SCH (08:38)
[2019-08-26] MEDS: PANTOPRAZOLE 40 MG TABLET PO SCH (08:38)
[2019-08-26] MEDS: DOCUSATE SODIUM 100 MG CAPSULE PO SCH (08:38)
[2019-08-26] MEDS: LACTOBACILLUS RHAMNOSUS GG CAPSULE PO SCH (08:38)
[2019-08-26] MEDS: HEPARIN 5,000 UNIT/1 ML VIAL SUBCUT SCH (08:41)
[2019-08-26 16:51] VITALS: BP 139/73
[2019-08-26] MEDS: ACETAMINOPHEN 325 MG TABLET PO PRN (17:16)
[2019-08-26] MEDS: MULTIVITAMIN INJ 10 ML in AMINO ACIDS/DEXT/LYTES 4.25-5% 2,000 ML IV SCH (18:03)
[2019-08-30 16:26] LABS: Myeloperoxidase Antibody < 0.2 U
[2019-08-31 13:01] LABS: Cryofibrinogen, P Negative (Negative); Cryoglobulin, S Negative %ppt (Negative)
== END 2019-08-26 19:00 | DRG 919 ==
LOC: N.ED 00:52 → OBSVTOIN 04:24 → N.EDINP 04:24 → SUATTDRO 04:24 → INTOOBSV 04:24 → N.EDINP 06:15 → N.5E 07:30 → N.CC 08-21 16:44 → N.5E 08-22 18:23
PROVIDERS: ADMIT Nurse Practitioner Family; ATTEND Internal Medicine